=== PATIENT | female | born 1935 | race Caucasian/White ===

== ENCOUNTER → 2016-06-13 | Outpatient (CLI) | payer OTHER ==
[~2016-06-13] MED LIST: ACET-1256 PO; CALCTAB5 PO; HYDR25TA4 PO; LORA-741 PO; MENT4GEL TOP; MULTCHW PO; OMEP40CA PO; POTA-335 PO; TRAM-453 PO; VALS320T PO; VENL150C PO; biotin PO
[2016-06-13 12:11] LABS: BASO % 0.4 %; BASO ABS # 0.03 K/uL (0-0.2); COMPLETE YES; EOS % 1.4 %; HEMATOCRIT 40.9 % (37-47); IG% 0.1 %; LYMPH ABS # 2.36 K/uL (1.2-3.4); MEAN CELL VOLUME 87.2 fL (80-100); MEAN CORPUSCULAR HEMOGLOBIN 28.4 pg (25-34); MEAN CORPUSCULAR HGB CONC 32.5 g/dl (32-36); MEAN PLATELET VOLUME 10.5 fL (7.4-10.4); MONO % 10.6 %; NEUT % 53.5 %; PLATELET COUNT 380 K/uL (130-400); RED BLOOD COUNT 4.69 M/uL (4.2-5.4); WHITE BLOOD COUNT 6.95 K/uL (4.8-10.8)
[2016-06-13 12:32] LABS: ESTIMATED AVERAGE GLUCOSE 126 mg/dl; HA1C FLAG Normal (Normal)
[2016-06-13 13:11] LABS: BLOOD UREA NITROGEN 25 mg/dl (7-18); BUN/CREATININE RATIO 29.4 (10-20); CALCIUM 9.6 mg/dl (8.5-10.1); CARBON DIOXIDE 30 mmol/L (21-32); CHLORIDE 104 mmol/L (98-107); CREATININE 0.85 mg/dl (0.60-1.20); GLUCOSE 90 mg/dl (70-99); SODIUM 141 mmol/L (136-145)
[2016-06-13 13:12] LABS: CHOLESTEROL 143 mg/dl (0-200); CHOLESTEROL/HDL RATIO 4.1; HDL CHOLESTEROL 35 mg/dl; LDL CHOLESTEROL CALCULATED 70 mg/dl; TRIGLYCERIDES 190 mg/dl (0-150); VERY LOW DENSITY LIPOPROT CALC 38 mg/dl
--- NOTE | 2016-06-20 12:08 | CODING QUERY MEDICAL NECESSITY ---
SUPPORTING DIAGNOSIS NEEDED A supporting diagnosis is required for the test/procedure performed on this patient in order for us to be reimbursed by the patient's insurance. Please provide a supporting diagnosis for the following test/procedure listed below next to the test name along with your signature. *If there is no additional diagnosis for this patient that would support the following test/procedure please document that below next to the test/procedure. Test(s)/Procedure(s) that require a supporting diagnosis: DOS 06/13 * Vitamin D DIAGNOSIS: Provider Signature: Date: Thank you Vianca Russell Health Information Management Once completed, please kindly fax back to [phone] For questions please call [phone]
== END | disposition home or self-care (01) ==
LOC: C.LAB 11:31
PROVIDERS: ATTEND Internal Medicine Geriatric Medicine
DX: I10 Essential (primary) hypertension (principal); M19.90 Unspecified osteoarthritis, unspecified site; M85.80 Other specified disorders of bone density and structure, unspecified site; R73.9 Hyperglycemia, unspecified

== ENCOUNTER → 2016-08-10 | Outpatient (CLI) | payer OTHER ==
[~2016-08-10] MED LIST changes: +AZITTAB PO; +CIPR1TAB11 PO; +MULT-1092 PO; +PRM625 VAGRING
--- NOTE | 2016-08-10 13:06 | MAMMOGRAPHY REPORT ---
BILATERAL DIGITAL SCREENING MAMMOGRAM WITH CAD: 08/10/2016 TECHNIQUE: Current study was also evaluated with a Computer Aided Detection (CAD) system. Bilatera l CC and MLO views were obtained. COMPARISON: Comparison is made to exams dated: 08/09/2015 mammogram, 08/05/2014 mammogram, 08/04/2013 mammogram, 08/01/2012 mammogram, 08/01/2011 mammogram, and 07/28/2010 mammogram - [facility] nt. BREAST COMPOSITION: The tissue of both breasts is almost entirely fatty. FINDINGS: No suspicious masses, calcifications, or areas of architectural distortion are noted in e ither breast. There has been no significant interval change compared to prior exams. IMPRESSION: ACR BI-RADS CATEGORY 1: NEGATIVE There is no mammographic evidence of malignancy. A 1 year screening mammogram is recommended. The p atient will receive written notification of the results. Approximately 10% of breast cancers are not detected with mammography. A negative mammographic repor t should not delay biopsy if a clinically suggestive mass is present. Jada Hernandez M.D. ah/:08/10/2016 12:08:42 Neuropsychology Division Chief: Renée IRAHETA(R)(M), [facility] letter sent: Normal 1/2 BI-RADS Code: ACR BI-RADS Category 1: Negative
== END | disposition home or self-care (01) ==
LOC: C.MAMM 10:54
PROVIDERS: ATTEND Internal Medicine Geriatric Medicine
DX: Z12.31 Encounter for screening mammogram for malignant neoplasm of breast (principal)

== ENCOUNTER → 2017-02-12 | Outpatient (CLI) | payer OTHER ==
--- NOTE | 2017-02-12 10:59 | DIAGNOSTIC IMAGING REPORT ---
ABDOMINAL ULTRASOUND COMPLETE HISTORY: Generalized abdominal pain.. COMPARISON: Abdomen and pelvis CT 11/05/2014. FINDINGS: Pancreas: The pancreatic head and tail are obscured by overlying bowel gas. The remaining portions of the pancreas are within normal limits. Liver: No hepatic masses. Gallbladder: The gallbladder is surgically absent. CBD: 1.6 cm. This remains unchanged. Kidneys: No hydronephrosis. Spleen: Normal in size measuring 11.6 cm in length. Aorta: Normal in caliber. IVC: Patent. IMPRESSION: 1. Stable common bile duct dilatation measuring up to 1.6 cm. 2. Prior cholecystectomy. Electronically signed by: Bryce Dougheryt M.D. 02/12/2017 10:57 AM Dictated Date/Time: 02/12/2017 10:55 AM
== END | disposition home or self-care (01) ==
LOC: C.ULTR 09:54
PROVIDERS: ATTEND Internal Medicine Geriatric Medicine
DX: R10.9 Unspecified abdominal pain (principal)

== ENCOUNTER → 2017-03-21 | Outpatient (CLI) | payer OTHER ==
[~2017-03-21] MED LIST changes: -AZITTAB PO; +CEPH500C PO; +CIPR-255 PO; -CIPR1TAB11 PO; +CLIN150C PO; +DOXY100C76 PO; -VENL150C PO; +VENL150C2 PO
--- NOTE | 2017-03-21 14:21 | DIAGNOSTIC IMAGING REPORT ---
R TOE(S) MIN 2 VIEWS CLINICAL HISTORY: R 1ST TOE infection COMPARISON: None. DISCUSSION: Mild degenerative change of the metatarsal phalangeal as well as interphalangeal joint. Mild soft tissue edema. No evidence for lytic or blastic bony abnormality. There is no evidence for bony destructive process. Mild soft tissue edema IMPRESSION: Mild soft tissue edema. Mild degenerative change of the osseous structures. No evidence for osteomyelitis. The above report was generated using voice recognition software. It may contain grammatical, syntax or spelling errors. Electronically signed by: Silvestre Hernadez M.D. 03/21/2017 2:20 PM Dictated Date/Time: 03/21/2017 2:19 PM
== END | disposition home or self-care (01) ==
LOC: C.RAD 13:02
PROVIDERS: ATTEND Emergency Medicine
DX: S91.101A Unspecified open wound of right great toe without damage to nail, initial encounter (principal); X58.XXXA Exposure to other specified factors, initial encounter

== ENCOUNTER → 2017-05-30 | Outpatient (CLI) | payer OTHER ==
[~2017-05-30] MED LIST changes: -CEPH500C PO; -CIPR-255 PO; -CLIN150C PO; +VENL150C PO; -VENL150C2 PO
[2017-05-30 12:12] LABS: BASO % 0.2 %; BASO ABS # 0.02 K/uL (0-0.2); EOS % 1.1 %; EOS ABS # 0.09 K/uL (0-0.5); HEMOGLOBIN 13.4 g/dL (12.0-16.0); IG# 0.01 K/uL (0.00-0.02); MEAN CELL VOLUME 88.2 fL (80-100); MEAN CORPUSCULAR HEMOGLOBIN 28.2 pg (25-34); MEAN CORPUSCULAR HGB CONC 31.9 g/dl (32-36); MEAN PLATELET VOLUME 10.4 fL (7.4-10.4); MONO ABS # 0.98 K/uL (0.11-0.59); NEUT % 53.6 %; NEUT ABS # 4.39 K/uL (1.4-6.5); PLATELET COUNT 400 K/uL (130-400); RED CELL DISTRIBUTION WIDTH CV 13.4 % (11.5-14.5); RED CELL DISTRIBUTION WIDTH SD 43.5 fL (36.4-46.3); WHITE BLOOD COUNT 8.19 K/uL (4.8-10.8)
[2017-05-30 12:30] LABS: HEMOGLOBIN A1C 5.8 % (4.5-5.6)
[2017-05-30 12:39] LABS: GLUCOSE 104 mg/dl (70-99)
[2017-05-30 12:40] LABS: BLOOD UREA NITROGEN 22 mg/dl (7-18); CALCIUM 10.4 mg/dl (8.5-10.1); CARBON DIOXIDE 28 mmol/L (21-32); CREATININE 0.85 mg/dl (0.60-1.20); POTASSIUM 4.5 mmol/L (3.5-5.1); SODIUM 139 mmol/L (136-145)
== END | disposition home or self-care (01) ==
LOC: C.LAB 11:09
PROVIDERS: ATTEND Internal Medicine Geriatric Medicine
DX: I10 Essential (primary) hypertension (principal); M19.90 Unspecified osteoarthritis, unspecified site; R73.9 Hyperglycemia, unspecified; M85.80 Other specified disorders of bone density and structure, unspecified site

== ENCOUNTER → 2017-08-13 | Outpatient (CLI) | payer OTHER ==
--- NOTE | 2017-08-13 15:08 | MAMMOGRAPHY REPORT ---
BILATERAL DIGITAL SCREENING MAMMOGRAM TOMOSYNTHESIS WITH CAD: 08/13/2017 CLINICAL HISTORY: Routine screening. Patient has no complaints. TECHNIQUE: Breast tomosynthesis in addition to standard 2D mammography was performed. Current study was also evaluated with a Computer Aided Detection (CAD) system. COMPARISON: Comparison is made to exams dated: 08/10/2016 mammogram, 08/09/2015 mammogram, 08/05/2014 m ammogram, 08/04/2013 mammogram, 08/01/2012 mammogram, and 08/01/2011 mammogram - [facility]. BREAST COMPOSITION: The tissue of both breasts is almost entirely fatty. FINDINGS: There are scattered stable punctate microcalcifications in the breasts. No suspicious mass, architectural distortion or cluster of microcalcifications is seen. IMPRESSION: ACR BI-RADS CATEGORY 1: NEGATIVE There is no mammographic evidence of malignancy. A 1 year screening mammogram is recommended. The pa tient will receive written notification of the results. Approximately 10% of breast cancers are not detected with mammography. A negative mammographic report should not delay biopsy if a clinically suggestive mass is present. Gilda Keith M.D. ay/:08/13/2017 12:39:43 Skip Operator: Myesha IRAHETA(Stephenie)(Ephraim)(BD), [facility] letter sent: Normal 1/2 BI-RADS Code: ACR BI-RADS Category 1: Negative
== END | disposition home or self-care (01) ==
LOC: C.MAMM 11:00
PROVIDERS: ATTEND Internal Medicine Geriatric Medicine
DX: Z12.31 Encounter for screening mammogram for malignant neoplasm of breast (principal)

== ENCOUNTER 2018-10-20 07:46 | Observation (INO) ==
[2018-10-20] MEDS ORDERED: MECLIZINE HCL 25 MG TAB PO STA (08:06)
[2018-10-20] MEDS ORDERED: ONDANSETRON INJ 2 MG/ML 2 ML VIAL IV STA (08:06)
[2018-10-20] MEDS ORDERED: SODIUM CHLORIDE 0.9% 500 ML IV SCH (08:15)
[2018-10-20 08:24] LABS: Basophils # (auto) 0.02 K/uL (0-0.2); Basophils % (auto) 0.2 %; Eosinophils # (auto) 0.09 K/uL (0-0.5); Eosinophils % (auto) 0.9 %; Hematocrit (blood only) 38.3 % (37-47); Hemoglobin 12.2 g/dL (12.0-16.0); Immature Granulocytes # (auto) 0.02 K/uL (0.00-0.02); Immature Granulocytes % (auto) 0.2 %; Lymphocytes # (auto) 1.61 K/uL (1.2-3.4); Lymphocytes % (auto) 16.7 %; Mean Corpuscular Hgb Conc 31.9 g/dL (32-36); Mean Corpuscular Volume 90.1 fL (80-100); Mean Platelet Volume 10.2 fL (7.4-10.4); Monocytes # (auto) 1.02 K/uL (0.11-0.59); Monocytes % (auto) 10.6 %; Neutrophils # (auto) 6.86 K/uL (1.4-6.5); Neutrophils % (auto) 71.4 %; Platelet Count 439 K/uL (130-400); RDW Coefficient of Variation 13.5 % (11.5-14.5); RDW Standard Deviation 44.8 fL (36.4-46.3); Red Blood Count 4.25 M/uL (4.2-5.4); White Blood Count 9.62 K/uL (4.8-10.8)
[2018-10-20 08:49] LABS: Alanine Aminotransferase 19 U/L (12-78); Albumin Level 3.3 gm/dl (3.4-5.0); Aspartate Aminotransferase 14 U/L (15-37); BUN Creatinine Ratio 24.5 (10-20); Blood Urea Nitrogen 16 mg/dl (7-18); Calcium 9.3 mg/dl (8.5-10.1); Carbon Dioxide 30 mmol/L (21-32); Chloride 106 mmol/L (98-107); Creatinine Clr Calc Pharmacy 69.1 ml/min; Est GFR (Non-African American) 82.8; Glucose 111 mg/dl (70-99); Sodium 141 mmol/L (136-145)
[2018-10-20 08:51] LABS: Albumin Globulin Ratio 0.9 (0.9-2); Alkaline Phosphatase 83 U/L (45-117); Bilirubin,Total 0.4 mg/dl (0.2-1); Creatine Kinase 43 U/L (26-192); Globulin 3.6 gm/dl (2.5-4.0); Total Protein 6.9 gm/dl (6.4-8.2); Troponin I < 0.015 ng/ml (0-0.045)
--- NOTE | 2018-10-20 09:17 | CT Scan Report ---
HEAD CT NONCONTRAST CT DOSE: 537.48 mGy.cm HISTORY: Pt c/o dizziness TECHNIQUE: Multiaxial CT images of the head were performed without the use of intravenous contrast. A utomated exposure control was utilized for this study. A dose lowering technique was utilized adheri ng to the principles of ALARA. Comparison: None. Findings: The paranasal sinuses and mastoid air cells are clear. The calvarium and skull base are int act. There is no mass, hematoma, midline shift, acute infarct. White matter hypodensity is nonspecifi c but suggestive of microvascular ischemic change. The ventricles and sulci demonstrate mild age-rela liana involutional changes. Impression: No acute intracranial abnormality. Electronically signed by: Bryce Dougherty M.D. 10/20/2018 9:15 AM
--- NOTE | 2018-10-20 09:30 | XRay Report ---
XR chest 1V portable HISTORY: weakness COMPARISON: Chest 01/31/2016. FINDINGS: No pneumothorax. No pleural effusions. The heart is normal in size. Chronic elevation/event ration of the right hemidiaphragm. This remains unchanged. The lungs are clear. No evidence for pulmo nary edema. Old, healed right clavicle fracture. IMPRESSION: No significant change compared to the prior study. No acute process. Electronically signed by: Bryce Dougherty M.D. 10/20/2018 9:29 AM
[2018-10-20] MEDS ORDERED: METOCLOPRAMIDE HCL INJ 5 MG/ML 2 ML VIAL IV ONE (10:41)
[2018-10-20] MEDS ORDERED: DIAZEPAM 5 MG/ML INJ 10ML VIAL IV STA (10:41)
[2018-10-20 11:56] LABS: Appearance Urine Clear (Clear); Bilirubin Urine Negative (Negative); Blood Urine Negative (Negative); Color Urine Yellow; Glucose Urine UA Negative (Negative); Ketones Urine Negative (Negative); Leukocyte Esterase Urine Negative (Negative); Nitrite Urine Negative (Negative); Protein Urine Negative (Negative); Specific Gravity Urine 1.023 (1.000-1.030); Urobilinogen Urine Negative (Negative)
--- NOTE | 2018-10-20 12:30 | History & Physical Report ---
Date of Service October 20, 2018 Assessment & Plan (1) Benign paroxysmal positional vertigo: Symptoms initially fit with benign positional vertigo will place transdermal scopolamine patch offered PRN Ativan antiemetics and hydrate her. Reassess her in the morning initial CT is unremarkable low suspicion for cerebrovascular event if her symptoms persist consideration for reimaging can be undertaken denies recent head trauma or infectious but did awaken and rollover when symptoms began (2) HTN (hypertension): We will continue her valsartan 320 blood pressure slightly up this time could be from anxiety, will hold her hydrochlorothiazide at this point time we will offer her as needed medicines for blood pressure become significantly elevated (3) Depression: We will continue Effexor 150 the patient does have some stressors at home currently (4) Infection: Patient is on suppressive therapy doxycycline 100 daily for her toe infection will of wound care evaluated. I did personally see the toe is at least a stage III is been debrided is approximately 3 cm there is some macerated skin on the edge and there is some hardened skin on the opposite edge. Defin itely needs wound care attention. (5) DVT prophylaxis: Heparin for DVT prevention History of Present Illness Primary Care Provider: Hernandez Lin MD Patient awoke this morning rolled over to the bathroom and felt vertiginous. She is significantly dizzy and nauseated. She presented to the ER at which time to try to improve her dizziness given her meclizine 25 "metoclopramide 5 Zofran 4 and diazepam 2.5. None of this helps the patient cannot stand to walk to the bathroom was recommended for admission. Patient has meclizine on her medication list says she has not taken it for years but is not sure why she got it she said Dr. Zita esteban the orthopedist given to her at one point time. 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 she has had debridement of this over the years she is on chronic daily doxycycline for suppressive therapy for this she is wearing an orthopedic shoe The other issue is her 's health is significantly deteriorating and she is his sole caregiver [facility] is being alerted by her case management in the ER to try to arrange for emergency placement patient will remain in the hospital for more than 1 day Allergies Allergy/AdvReac Type Severity Reaction Status Date / Time lisinopril Allergy Mild Hives Verified 10/16/18 11:20 nitrofurantoin Allergy Mild Hives Verified 10/16/18 11:20 Penicillins Allergy Mild Hives Verified 10/16/18 11:20 Sulfa (Sulfonamide Allergy Mild Hives Verified 10/16/18 11:20 Antibiotics) Home Medications Home Medications Medication Instructions Recorded Confirmed Type acetaminophen 500 mg capsule 1,000 mg PO TID PRN cap 11/21/17 10/20/18 History biotin 1 mg tablet 1 mg PO DAILY 11/21/17 10/20/18 History calcium carbonate 600 mg calcium 600 mg PO ONCE tab 11/21/17 10/20/18 History (1,500 mg) tablet conjugated estrogens 0.625 mg/gram 1 appln VAGINAL DIRECTED PRN gm 11/21/17 10/20/18 History vaginal cream hydrochlorothiazide 25 mg tablet 25 mg PO QAM 11/21/17 10/20/18 History lorazepam 0.5 mg tablet 0.5 mg PO HS tab 11/21/17 10/20/18 History potassium chloride ER 10 mEq 20 meq PO DAILY cap 11/21/17 10/20/18 History capsule,extended release venlafaxine ER 150 mg 150 mg PO QAM 11/21/17 10/20/18 History capsule,extended release 24 hr Centrum Silver Women 1 tab PO QAM 12/11/17 10/20/18 History Probiotic 3,000 packet PO QAM 12/11/17 10/20/18 History potassium chloride 20 meq PO QAM 12/11/17 10/20/18 History triamcinolone acetonide 1 applic TOPICAL DAILY 12/11/17 10/20/18 History omeprazole 40 mg capsule,delayed 40 mg PO QAM #90 cap 09/09/18 10/20/18 Rx release tramadol 50 mg tablet 50 mg PO DAILY PRN #30 tab 09/09/18 10/20/18 Rx valsartan 320 mg tablet 320 mg PO QAM #90 tab 09/19/18 10/20/18 Rx doxycycline hyclate 100 mg tablet 100 mg PO DAILY #14 tab 10/16/18 10/20/18 Rx meclizine 25 mg PO TID #30 tab 10/20/18 10/20/18 Rx Past Med/Surg History Medical History HTN (hypertension) (Chronic) Bigeminy DX 1970'S (NO RECENT PROBLEMS) Cancer SKIN CANCER Colitis Depression GERD (gastroesophageal reflux disease) Hearing deficit Infection TOE INFECTION (WOUND CLINIC CURRENTLY) Osteoarthritis Prolapsed bladder Surgical History History of tonsillectomy Hx of cataract surgery LEFT S/P colonoscopy S/P total abdominal hysterectomy RT OOPHERECTOMY Family History Brother Family history of diabetes mellitus Social History Preferred Language: Croatian Communication Ability: Effective Hearing Ability: Normal Finisher Polisher Required: No Beliefs That Will Affect Care: None Current Living Situation: Spouse Current Living Situation Comment: takes care of Other Information That Helps Us Care for You: No Feels Safe at Home: Yes Safety Concerns: Feels Safe At This Time Smoking Status: Never smoker Second Hand Exposure: No Hx Alcohol Use: No Hx Substance Use: No Review of Systems Review of Systems: ROS: well nourished well developed. No double vision blurry vision No problems with speech or swallowing No palpitations, chest pain or pressure No Wheezing or breathing issues No abdominal pain nausea vomiting diarrhea changes in appetite or weight No burning urine urine frequency or changes in color No focal joint pain or muscle pain No skin rashes or oral lesions No unusual bruising or bleeding No focused back pain or numbness or loss of strength, patient has reproducible cyst symptoms with head movement and eye movement worse to the right No changes in memory or confusion Physical Exam Physical Exam: The patient appeared well nourished and normally developed. Vital signs as documented. Head exam is unremarkable. normocephalic, atraumatic Patient has reproducible symptoms when she looks towards her right turns her head to the right. She has no nystagmus or diplopia ophthalmologic exam is unremarkable Ear examination is unremarkable Neck is without jugular venous distension, no bruits, thyromegaly, or lymphademopathy Lungs are clear to auscultation and percussion. Cardiac exam reveals Rhythm is regular. First and second heart sounds normal. Abdominal exam reveals normal bowel sounds, no masses, no organomegaly Extremities are nonedematous and both pedal pulses are present Neurologic exam is A&Ox3, no focal deficits, strength is equal bilateral no focal evidence of issues no palmar drift no a facial asymmetry Psychologically seems neither anxious or depressed Skin is warm Dry without bruises or lesions Results & Data Vital Signs (Past 12 Hours) Vital Signs Temp Pulse Pulse Resp BP BP Pulse Ox 10/20/18 12:00 88 21 148/85 H 97 10/20/18 11:30 89 22 150/89 H 10/20/18 11:00 89 24 157/84 H 10/20/18 10:27 87 21 144/87 H 95 10/20/18 09:30 79 21 133/75 97 10/20/18 08:31 74 16 163/82 H 94 10/20/18 08:06 96 10/20/18 08:00 80 18 141/78 H 96 10/20/18 07:52 36.5 C 81 17 167/76 H 98 PG Care Time/CCT Total # of Minutes Spent Total Time Spent with Patient: Total time spent is greater than 50% in coordination of care (as documented) at patient's floor/unit and/or counseling patient: (1) Benign paroxysmal positional vertigo Laterality: unspecified laterality Qualified Code(s): H81.10 - Benign paroxysmal vertigo, unspecified ear
--- NOTE | 2018-10-20 12:37 | Emergency Department Note ---
Entered by Keyla Cloud acting as a scribe for History of Present Illness General Chief complaint: Dizziness Stated complaint: Dizziness, MCCORD, Nausea Time Seen by Provider: 10/20/18 07:51 Source: patient Mode of arrival: EMS History of Present Illness Onset (ago): day(s) 1 Location: head Pain Consistency: + other (persistent) Quality: + other (dizziness) Exacerbated By: + movement (movement, turning head) Associated symptoms: + denies other symptoms (abdominal pain) and + other (nausea, mild frontal headache) The patient is a 82 year old female with a history of hypertension that is presenting to the Emergency Room with complaints of persistent dizziness that started yesterday. The patient reports that she feels dizzy with movement and with turning her head. She notes that the feeling resolves with sitting still. She states that it feels like the room is spinning and buzzing. She reports that she has to hold on to furniture to move around secondary to the dizziness. She states that her symptoms improved yesterday but returned this morning upon waking. She notes some associated nausea and a mild frontal headache. She states that the headache is similar to her regular headaches. She notes that her nausea as slightly improved with Zofran that she received in the ambulance. The patient reports that she has been sleeping sitting in a recliner since March secondary to her husbands illness. She states that she has had difficulty lying flat since this time. She denies using any blood thinners daily. EMS notes that the patient has cellulitis of the right toe and is currently taking Amoxicillin for treatment. Home Medications Home Medications Medication Instructions Recorded Confirmed Type acetaminophen 500 mg capsule 1,000 mg PO TID PRN cap 11/21/17 10/20/18 History biotin 1 mg tablet 1 mg PO DAILY 11/21/17 10/20/18 History calcium carbonate 600 mg calcium 600 mg PO ONCE tab 11/21/17 10/20/18 History (1,500 mg) tablet conjugated estrogens 0.625 mg/gram 1 appln VAGINAL DIRECTED PRN gm 11/21/17 10/20/18 History vaginal cream hydrochlorothiazide 25 mg tablet 25 mg PO QAM 11/21/17 10/20/18 History lorazepam 0.5 mg tablet 0.5 mg PO HS tab 11/21/17 10/20/18 History potassium chloride ER 10 mEq 20 meq PO DAILY cap 11/21/17 10/20/18 History capsule,extended release venlafaxine ER 150 mg 150 mg PO QAM 11/21/17 10/20/18 History capsule,extended release 24 hr Centrum Silver Women 1 tab PO QAM 12/11/17 10/20/18 History Probiotic 3,000 packet PO QAM 12/11/17 10/20/18 History potassium chloride 20 meq PO QAM 12/11/17 10/20/18 History triamcinolone acetonide 1 applic TOPICAL DAILY 12/11/17 10/20/18 History omeprazole 40 mg capsule,delayed 40 mg PO QAM #90 cap 09/09/18 10/20/18 Rx release tramadol 50 mg tablet 50 mg PO DAILY PRN #30 tab 09/09/18 10/20/18 Rx valsartan 320 mg tablet 320 mg PO QAM #90 tab 09/19/18 10/20/18 Rx doxycycline hyclate 100 mg tablet 100 mg PO DAILY #14 tab 10/16/18 10/20/18 Rx meclizine 25 mg PO TID #30 tab 10/20/18 10/20/18 Rx Allergies Allergy/AdvReac Type Severity Reaction Status Date / Time lisinopril Allergy Mild Hives Verified 10/16/18 11:20 nitrofurantoin Allergy Mild Hives Verified 10/16/18 11:20 Penicillins Allergy Mild Hives Verified 10/16/18 11:20 Sulfa (Sulfonamide Allergy Mild Hives Verified 10/16/18 11:20 Antibiotics) Past Med/Surg History Family History Brother Family history of diabetes mellitus Social History Preferred Language: Greek Communication Ability: Effective Hearing Ability: Normal [place] Straightener Stamper Required: No Beliefs That Will Affect Care: None Current Living Situation: Spouse Current Living Situation Comment: takes care of Other Information That Helps Us Care for You: No Feels Safe at Home: Yes Safety Concerns: Feels Safe At This Time Smoking Status: Never smoker Second Hand Exposure: No Hx Alcohol Use: No Hx Substance Use: No Review of Systems See HPI for pertinent positives & negatives. and A total of 10 systems reviewed and were otherwise negative Physical Exam Vital Signs Vital Signs - 24 hr 10/20/18 07:52 10/20/18 08:00 10/20/18 08:06 Temperature 36.5 C Temperature Source Oral Sepsis Recent Fever Within 48 Hours No Sepsis New/Unexplained Change in Mental Status No Sepsis Action Taken by Nursing No Action Required Pulse Rate 81 Pulse Rate [Apical] 80 Pulse Rate from SpO2 Sensor Pulse Rhythm [Apical] Irregular Respiratory Rate 17 18 Respiratory Effort / Characteristics Non-Labored Non-Labored Respiratory Depth Normal Normal Respiratory Pattern Regular Blood Pressure 167/76 H Blood Pressure [Right Arm] 141/78 H Blood Pressure Mean 106 Blood Pressure Mean [Right Arm] 99 Blood Pressure Position Sitting Blood Pressure Position [Right Arm] Lying Pulse Oximetry 98 96 96 Oxygen Delivery Method Room Air Room Air Room Air Oxygen Flow Rate 0 10/20/18 08:31 10/20/18 09:30 10/20/18 10:27 Temperature Temperature Source Sepsis Recent Fever Within 48 Hours Sepsis New/Unexplained Change in Mental Status Sepsis Action Taken by Nursing Pulse Rate Pulse Rate [Apical] 74 79 87 Pulse Rate from SpO2 Sensor Pulse Rhythm [Apical] Respiratory Rate 16 21 21 Respiratory Effort / Characteristics Non-Labored Non-Labored Non-Labored Respiratory Depth Normal Normal Normal Respiratory Pattern Regular Regular Regular Blood Pressure Blood Pressure [Right Arm] 163/82 H 133/75 144/87 H Blood Pressure Mean Blood Pressure Mean [Right Arm] 109 94 106 Blood Pressure Position Blood Pressure Position [Right Arm] Sitting Sitting Sitting Pulse Oximetry 94 97 95 Oxygen Delivery Method Room Air Room Air Room Air Oxygen Flow Rate 0 10/20/18 11:00 10/20/18 11:30 10/20/18 11:52 Temperature Temperature Source Sepsis Recent Fever Within 48 Hours Sepsis New/Unexplained Change in Mental Status Sepsis Action Taken by Nursing Pulse Rate 89 89 Pulse Rate [Apical] Pulse Rate from SpO2 Sensor Pulse Rhythm [Apical] Respiratory Rate 24 22 Respiratory Effort / Characteristics Respiratory Depth Respiratory Pattern Regular Blood Pressure 157/84 H 150/89 H Blood Pressure [Right Arm] Blood Pressure Mean 108 109 Blood Pressure Mean [Right Arm] Blood Pressure Position Blood Pressure Position [Right Arm] Pulse Oximetry Oxygen Delivery Method Room Air Oxygen Flow Rate 10/20/18 12:00 Temperature Temperature Source Sepsis Recent Fever Within 48 Hours Sepsis New/Unexplained Change in Mental Status Sepsis Action Taken by Nursing Pulse Rate 88 Pulse Rate [Apical] Pulse Rate from SpO2 Sensor 87 Pulse Rhythm [Apical] Respiratory Rate 21 Respiratory Effort / Characteristics Respiratory Depth Respiratory Pattern Blood Pressure 148/85 H Blood Pressure [Right Arm] Blood Pressure Mean 106 Blood Pressure Mean [Right Arm] Blood Pressure Position Blood Pressure Position [Right Arm] Pulse Oximetry 97 Oxygen Delivery Method Room Air Oxygen Flow Rate GENERAL: Awake, alert, well-appearing, in no acute distress HENT: Normocephalic, atraumatic. Oropharynx unremarkable. EYES: Normal conjunctiva. Sclera non-icteric. NECK: Supple. No nuchal rigidity. FROM. No JVD. RESPIRATORY: Clear to auscultation. CARDIAC: Regular rate, normal rhythm. Extremities warm and well perfused. Pulses equal. ABDOMEN: Soft, non-distended. No tenderness to palpation. No rebound or guarding. No masses. RECTAL: Deferred. MUSCULOSKELETAL: Chest examination reveals no tenderness. The back is symmetr ical on inspection without obvious abnormality. There is no CVA tenderness to palpation. No joint edema. LOWER EXTREMITIES: Calves are equal size bilaterally and non-tender. No edema. No discoloration. NEURO: Normal sensorium. No sensory or motor deficits noted. SKIN: No rash or jaundice noted. Course 0753:The patient was evaluated in room B07. A complete history and physical examination was performed. 0945: I updated the patient on her current lab and imaging results. We discussed talking to Case management about caring for her . She is amenable to the plan. 0955: Upon reevaluation, the patient appeared to have improvement of her sy mptoms. I discussed findings with the patient. She verbalized agreement of the treatment plan. She was discharged home. 1021: I ordered an ambulation trial attempt for the patient at this time to dennis luate her for discharge. 1030: Upon sitting up, the patient states that the room is spinning and that she had to lie back down. The patient vomited at this time. 1041: I reevaluated the patient at this time. She is amenable to the plan. She asked to speak to case management about her . 1133: I discussed the patients case [place] [facility] [place] the patient for further management and care. 1140: Upon reevaluation, the patient is resting comfortably. I discussed lab oratory and radiographic results with the patient. She verbalized agreement of the treatment plan. The patient will be evaluated for further management and care. Administered Medications Discontinued Medications Diazepam (Valium) 2.5 mg IV NOW STA Stop: 10/20/18 10:42 Last Admin: 10/20/18 11:13 Dose: 2.5 mg Documented by: [id number] Sodium Chloride (Nss) 500 mls @ 999 mls/hr IV .Q31M KETTY Stop: 10/20/18 08:45 Last Infusion: 10/20/18 08:46 Dose: 0 mls/hr Documented by: [id number] Admin: 10/20/18 08:15 Dose: 999 mls/hr Documented by: [id number] Meclizine HCl (Antivert) 25 mg PO NOW STA Stop: 10/20/18 08:07 Last Admin: 10/20/18 08:15 Dose: 25 mg Documented by: [id number] Metoclopramide HCl (Reglan) 5 mg IV ONE ONE Stop: 10/20/18 10:42 Last Admin: 10/20/18 11:11 Dose: 5 mg Documented by: [id number] Ondansetron HCl (Zofran) 4 mg IV NOW STA Stop: 10/20/18 08:07 Last Admin: 10/20/18 08:15 Dose: 4 mg Documented by: [id number] Medical Decision Making Differential Diagnosis Differential diagnosis: Etiologies such as benign positional vertigo, dehydration, hypovolemia, anemia, tumor, infection, hypoglycemia, electrolyte abnormalities, cardiac sources, intracerebral event, toxicologic, neurologic, as well as others were entertained. Medical Records Attestation: I reviewed the patient's medical records. Home Medications Current Medication List: was personally reviewed by me Laboratory Data Attestation: I reviewed the patient's lab results. Result diagrams: 10/20/18 08:07 10/20/18 08:07 Lab Results 10/20/18 10/20/18 10/20/18 Range/Units 08:07 08:07 11:43 WBC 9.62 (4.8-10.8) K/uL RBC 4.25 (4.2-5.4) M/uL Hgb 12.2 (12.0-16.0) g/dL Hct 38.3 (37-47) % MCV 90.1 (80-100) fL MCH 28.7 (25-34) pg MCHC 31.9 L (32-36) g/dL RDW Std Deviation 44.8 (36.4-46.3) fL RDW Coeff of Nimesh 13.5 (11.5-14.5) % Plt Count 439 H (130-400) K/uL MPV 10.2 (7.4-10.4) fL Immature Gran % (Auto) 0.2 % Neut % (Auto) 71.4 % Lymph % (Auto) 16.7 % [place] % (Auto) 10.6 % Eos % (Auto) 0.9 % Baso % (Auto) 0.2 % Immature Gran # (Auto) 0.02 (0.00-0.02) K/uL Neut # (Auto) 6.86 H (1.4-6.5) K/uL Lymph # (Auto) 1.61 (1.2-3.4) K/uL [place] # (Auto) 1.02 H (0.11-0.59) K/uL Eos # (Auto) 0.09 (0-0.5) K/uL Baso # (Auto) 0.02 (0-0.2) K/uL Sodium 141 (136-145) mmol/L Potassium 4.0 (3.5-5.1) mmol/L Chloride 106 (98-107) mmol/L Carbon Dioxide 30 (21-32) mmol/L Anion Gap 5.0 (3-11) BUN 16 (7-18) mg/dl Creatinine 0.66 (0.6-1.2) mg/dl Est Cr Clr Drug Dosing 69.1 ml/min Est GFR ( Amer) 96.0 Est GFR (Non-Af Amer) 82.8 BUN/Creatinine Ratio 24.5 H (10-20) Glucose 111 H (70-99) mg/dl Calcium 9.3 (8.5-10.1) mg/dl Total Bilirubin 0.4 (0.2-1) mg/dl AST 14 L (15-37) U/L ALT 19 (12-78) U/L Alkaline Phosphatase 83 (45-117) U/L Total Creatine Kinase 43 (26-192) U/L Troponin I < 0.015 (0-0.045) ng/ml Total Protein 6.9 (6.4-8.2) gm/dl Albumin 3.3 L (3.4-5.0) gm/dl Globulin 3.6 (2.5-4.0) gm/dl Albumin/Globulin Ratio 0.9 (0.9-2) TSH 1.250 (0.300-4.500) uIu/ml Urine Color Yellow Urine Appearance Clear (Clear) Urine pH 5.0 (4.5-7.5) Ur Specific [place] 1.023 (1.000-1.030) Urine Protein Negative (Negative) Urine Glucose (UA) Negative (Negative) Urine Ketones Negative (Negative) Urine Blood Negative (Negative) Urine Nitrite Negative (Negative) Urine Bilirubin Negative (Negative) Urine Urobilinogen Negative (Negative) Ur Leukocyte Esterase Negative (Negative) Imaging Data Radiologist's Impression: Radiology results as stated below per my review and the radiologist's interpretation: HEAD CT NONCONTRAST CT DOSE: 537.48 mGy.cm HISTORY: Pt c/o dizziness TECHNIQUE: Multiaxial CT images of the head were performed without the use of intravenous contrast. Automated exposure control was utilized for this study. A dose lowering technique was utilized adhering to the principles of ALARA. Comparison: None. Findings: The paranasal sinuses and mastoid air cells are clear. The calvarium and skull base are intact. There is no mass, hematoma, midline shift, acute infarct. White matter hypodensity is nonspecific but suggestive of microvascular ischemic change. The ventricles and sulci demonstrate mild age-related involutional changes. Impression: No acute intracranial abnormality. Electronically signed by: Bryce Duogherty M.D. 10/20/2018 9:15 AM XR chest 1V portable HISTORY: weakness COMPARISON: Chest 01/31/2016. FINDINGS: No pneumothorax. No pleural effusions. The heart is normal in size. Chronic elevation/eventration of the right hemidiaphragm. This remains uncha nged. The lungs are clear. No evidence for pulmonary edema. Old, healed right clavicle fracture. IMPRESSION: No significant change compared to the prior study. No acute process. Electronically signed by: Bryce Dougherty M.D. 10/20/2018 9:29 AM ECG Data Attestation: I personally reviewed and interpreted this ECG as follows: Indication: other (dizziness with history of hypertension) Rhythm: sinus rhythm Findings: + other (premature atrial complex, old anterior infarct) Comparison ECG Date: from (07/10/2013) Change: no significant change Blood Pressure Blood Pressure Findings: Elevated blood pressure Blood Pressure Disposition: Referred to patients primary care provider SHANE Nance This is an 82-year-old female who presents the emergency department complaining of dizziness. The patient's dizziness on physical exam appears to be consistent with vertigo. She was given meclizine as well as Zofran and normal saline bolus here in the emergency department. She was sent for CAT scan of the head which did not show any acute process. Patient also has an unchanged EKG as well as normal laboratory work including white blood cell count renal profile and liver profile. She was ambulated by nursing staff however became extremely dizzy and vomited. At this point she was given Reglan as well as Valium for her symptoms. Because of the patient's I did contact case management to ensure that the patient has proper care of her . As she is unable to ambulate she was discussed with the hospitalist service who agreed to admit the patient. Impression & Plan Benign paroxysmal positional vertigo Discharge Plan Visit Data Chief Complaint: Dizziness Stated Complaint: Dizziness, MCCORD, Nausea Other Complaint: Headache ED Provider: Justin Salinas Discharge Problem: Benign paroxysmal positional vertigo Patient Disposition: Being Evaluated by Hospitalist Condition: Good Discharge Instructions Mikimes/Other Patient Handouts: Dizziness Vertigo Inner Ear, Dizziness Vertigo Manage Meds, Dizziness Vertigo Balance Safety, ED BPV Vertigo Activity Restrictions/Additional Instructions: Follow up with DR Mcwilliams's office You have been examined and treated today on an emergency basis only. This is not a substitute for, or an effort to provide, complete comprehensive medical care. It is impossible to recognize and treat all injuries or illnesses in a single emergency department visit. It is therefore important that you follow up closely with Dr Mcwilliams. Call as soon as possible for an appointment. Thank you for your time and consideration. I look forward to speaking with you again soon. Please don't hesitate to call us if you have any questions. Forms Stand Alone Forms: My [facility], Important Visit Information Prescriptions Prescriptions: New meclizine 25 mg tablet 25 mg PO TID Qty: 30 RF: 0 No Action acetaminophen 500 mg capsule 1,000 mg PO TID PRN (Reason: Pain) RF: 0 calcium carbonate 600 mg calcium (1,500 mg) tablet 600 mg PO ONCE RF: 0 conjugated estrogens [Premarin] 0.625 mg/gram cream 1 appln Vaginal DIRECTED PRN (Reason: DIRECTED) RF: 0 hydrochlorothiazide 25 mg tablet 25 mg PO QAM RF: 0 lorazepam [Ativan] 0.5 mg tablet 0.5 mg PO HS RF: 0 potassium chloride 10 mEq capsule, extended release 20 meq PO DAILY RF: 0 venlafaxine [Effexor XR] 150 mg capsule,extended release 24hr 150 mg PO QAM RF: 0 biotin 1 mg tablet 1 mg PO DAILY RF: 0 omeprazole 40 mg capsule,delayed release(DR/EC) 40 mg PO QAM Qty: 90 RF: 3 tramadol 50 mg tablet 50 mg PO DAILY PRN (Reason: Pain) Qty: 30 RF: 1 valsartan [Diovan] 320 mg tablet 320 mg PO QAM Qty: 90 RF: 3 doxycycline hyclate 100 mg tablet 100 mg PO DAILY Qty: 14 RF: 0 potassium chloride 20 mEq Tablet Extended Release 20 meq PO QAM RF: 0 triamcinolone acetonide 0.1 % Cream 1 applic TOPICAL DAILY RF: 0 Centrum Silver Women 8 mg iron-400 mcg-300 mcg Tablet 1 tab PO QAM RF: 0 Probiotic 3 billion cell Capsule 3,000 packet PO QAM RF: 0 Referrals Referrals: Hernandez Lin MD [Primary Care Provider] - Tona Mcwilliams MD [Surgeon] - Discharge Problem: Benign paroxysmal positional vertigo Qualifiers: Laterality: unspecified laterality Qualified Code(s): H81.10 - Benign paroxysmal vertigo, unspecified ear The scribe's documentation has been prepared under my direction and personally reviewed by me in its entirety. I confirm that the note above accurately reflects all work, treatment, procedures, and medical decision making performed by me.
[2018-10-20] MEDS ORDERED: SODIUM CHLORIDE 0.9% 1000ML 1,000 ML IV SCH (14:00)
[2018-10-20] MEDS ORDERED: ONDANSETRON INJ 2 MG/ML 2 ML VIAL IV PRN (14:00)
[2018-10-20] MEDS ORDERED: NON-FORMULARY MEDICATION (Acetaminophen 1,000 MG) PO PRN (14:00)
[2018-10-20] MEDS ORDERED: LORazepam 0.5 MG/1 ML VIAL IV PRN (14:00)
[2018-10-20] MEDS ORDERED: PREMARIN VAG CRM 14 APPLN/30 GM TUBE PV PRN (14:00)
[2018-10-20] MEDS ORDERED: TRAMADOL HCL 50 MG TABLET PO PRN (14:00)
[2018-10-20] MEDS ORDERED: SCOPOLAMINE 1.5 MG TDSY TD SCH (16:00)
[2018-10-20 16:04] LABS: INR 1.1 (0.9-1.1); Prothrombin Time 10.8 Seconds (9.0-12.0)
[2018-10-20] MEDS: ACETAMINOPHEN 325 MG TAB PO PRN (17:43)
[2018-10-20] MEDS: LORazepam 0.5 MG TAB PO SCH (21:03)
[2018-10-20] MEDS: LACTOBACILLUS ACIDOPHILUS (FLORANEX) TAB PO SCH (21:03)
[2018-10-20] MEDS: HEPARIN SOD 5,000 UNIT/0.5 ML VIAL SQ SCH (21:04)
[2018-10-21] MEDS: CHECK SCOPOLAMINE PATCH PLACEMENT SCH ×3 (00:13→16:01)
[2018-10-21] MEDS: LACTOBACILLUS ACIDOPHILUS (FLORANEX) TAB PO SCH ×3 (08:03→20:44)
[2018-10-21] MEDS: ACETAMINOPHEN 325 MG TAB PO PRN (08:03)
[2018-10-21] MEDS: PANTOprazole 40 MG TAB PO SCH (08:04)
[2018-10-21] MEDS: VALSARTAN 80 MG TAB PO SCH (08:06)
[2018-10-21] MEDS: POTASSIUM CHLORIDE 10 MEQ TABCR PO SCH (08:06)
[2018-10-21] MEDS: VENLAFAXINE HCL XR 150 MG CAPXR PO SCH (08:07)
[2018-10-21] MEDS: DOXYCYCLINE HYCLATE 100 MG CAP PO SCH (08:08)
[2018-10-21] MEDS: HEPARIN SOD 5,000 UNIT/0.5 ML VIAL SQ SCH ×2 (08:09→20:43)
[2018-10-21 08:11] LABS: BUN Creatinine Ratio 16.7 (10-20); Creatinine Clr Calc Pharmacy 71.4 ml/min; Est GFR (Non-African American) 83.7; Potassium 3.9 mmol/L (3.5-5.1)
[2018-10-21] MEDS ORDERED: KETOROLAC TROMETHAMINE 15 MG/ML VIAL IV ONE (12:24)
--- NOTE | 2018-10-21 14:53 | Hospitalist Progress Note ---
Date of Service October 21, 2018 Assessment & Plan (1) Benign paroxysmal positional vertigo: Symptoms initially fit with benign positional vertigo improved after transdermal scopolamine patch offered PRN Ativan antiemetics and continue to hydrate her. initial CT is unremarkable low suspicion for cerebrovascular event With regard to her headache and neck pain and plain film of her neck will be ordered Toradol did improve her headache pain will continue to offer this as needed (2) HTN (hypertension): continue her valsartan 320 continue to hold her hydrochlorothiazide (3) Depression: Effexor 150 the patient does have some stressors at home currently (4) Infection: Patient is on suppressive therapy doxycycline 100 daily for her toe infection will of wound care evaluated. Culture of her toe with plain film of her toe to look for osteolytic changes (5) DVT prophylaxis: Heparin for DVT prevention Subjective She states her dizziness is improved she still has some left neck pain and a mild headache this also improved with some Toradol administration. She does not feel quite ready to go home yet. Her toe is not been an issue but wound care is requested ordering a culture and a plain film of her foot to look for ostium myelitis Review of Systems Review of Systems: ROS: well nourished well developed. No double vision blurry vision reproducible symptoms when she looks towards the right of dizziness No problems with speech or swallowing No palpitations, chest pain or pressure No Wheezing or breathing issues No abdominal pain nausea vomiting diarrhea changes in appetite or weight No burning urine urine frequency or changes in color Is focal left-sided neck pain in the muscular region above her trapezius No skin rashes or oral lesions No unusual bruising or bleeding No focused back pain or numbness or loss of strength No changes in memory or confusion Physical Exam Physical Exam: The patient appeared well nourished and normally developed. But in mild discomfort Vital signs as documented. Head exam is unremarkable. normocephalic, atraumatic Neck is without jugular venous distension, thyromegaly, or lymphademopathy is reproducibly tender in the muscular body towards the left base of her neck and also in the central region x-rays pending Lungs are clear to auscultation and percussion. Cardiac exam reveals Rhythm is regular. First and second heart sounds normal. Abdominal exam reveals normal bowel sounds, no masses, no organomegaly Extremities are nonedematous and both pedal pulses are present Neurologic exam is A&Ox3, no focal deficits, strength is equal bilateral no palmar drift no facial asymmetry her dizziness seems more consistent with vertigo Psychologically seems anxious about going home Skin is warm Dry without bruises or lesions Results & Data Vital Signs (Past 12 Hours) Vital Signs Temp Pulse Pulse Resp BP BP Pulse Ox 10/21/18 11:41 88 10/21/18 07:44 36.8 C 88 18 167/79 H 95 10/21/18 04:41 36.5 C 75 20 155/69 H 94 PG Care Time/CCT Total # of Minutes Spent Total Time Spent with Patient: Total time spent is greater than 50% in coordination of care (as documented) at patient's floor/unit and/or counseling patient: (1) Benign paroxysmal positional vertigo Laterality: unspecified laterality Qualified Code(s): H81.10 - Benign paroxysmal vertigo, unspecified ear
--- NOTE | 2018-10-21 15:55 | XRay Report ---
XR cervical spine 2 or 3V HISTORY: Pain. Trauma. pain to base of neck left sided, recent fall COMPARISON: None. FINDINGS: The cervical spine is visualized from C1 through the superior endplate of T1. There is no f racture. No subluxation. Moderate degenerative disc change. Osteopenia. Calcification of the carotid vasculature bilaterally. Prevertebral soft tissues and the atlantodens interval are intact. IMPRESSION: 1. No acute bony abnormality. 2. Moderate degenerative disc changes throughout. 3. Calcification of the carotid vasculature. The above report was generated using voice recognition software. It may contain grammatical, syntax or spelling errors. Electronically signed by: Silvestre Hernadez M.D. 10/21/2018 3:54 PM
--- NOTE | 2018-10-21 15:56 | XRay Report ---
XR toe RT min 2V CLINICAL HISTORY: eval for osteo changes infection COMPARISON: None. DISCUSSION: The bones and joint spaces appear intact. There is no evidence of fracture, dislocation o r bony disease. Generalized soft tissue edema. No evidence for bony destructive process. IMPRESSION: Soft tissue edema. No acute bony abnormality. The above report was generated using voice recognition software. It may contain grammatical, syntax or spelling errors. Electronically signed by: Silvestre Hernadez M.D. 10/21/2018 3:55 PM
[2018-10-21] MEDS: LORazepam 0.5 MG TAB PO SCH (20:46)
[2018-10-22] MEDS: CHECK SCOPOLAMINE PATCH PLACEMENT SCH ×2 (00:58→08:02)
[2018-10-22 06:57] LABS: Hematocrit (blood only) 34.6 % (37-47); Hemoglobin 10.9 g/dL (12.0-16.0); Mean Corpuscular Hgb Conc 31.5 g/dL (32-36); Mean Corpuscular Volume 88.3 fL (80-100); Mean Platelet Volume 10.3 fL (7.4-10.4); Platelet Count 381 K/uL (130-400); RDW Coefficient of Variation 13.5 % (11.5-14.5); RDW Standard Deviation 42.9 fL (36.4-46.3); Red Blood Count 3.92 M/uL (4.2-5.4); White Blood Count 6.43 K/uL (4.8-10.8)
[2018-10-22 07:57] LABS: BUN Creatinine Ratio 32.8 (10-20); Calcium 9.1 mg/dl (8.5-10.1); Creatinine Clr Calc Pharmacy 70.4 ml/min; Est GFR (African American) 96.5; Est GFR (Non-African American) 83.3; Potassium 3.9 mmol/L (3.5-5.1)
[2018-10-22] MEDS: PANTOprazole 40 MG TAB PO SCH (08:02)
[2018-10-22] MEDS: POTASSIUM CHLORIDE 10 MEQ TABCR PO SCH (08:02)
[2018-10-22] MEDS: VENLAFAXINE HCL XR 150 MG CAPXR PO SCH (08:02)
[2018-10-22] MEDS: DOXYCYCLINE HYCLATE 100 MG CAP PO SCH (08:03)
[2018-10-22] MEDS: LACTOBACILLUS ACIDOPHILUS (FLORANEX) TAB PO SCH ×2 (08:03→14:45)
[2018-10-22] MEDS: VALSARTAN 80 MG TAB PO SCH (08:03)
[2018-10-22] MEDS: HEPARIN SOD 5,000 UNIT/0.5 ML VIAL SQ SCH (08:05)
--- NOTE | 2018-10-23 21:18 | Discharge Summary ---
Date of Service October 22, 2018 Admission HPI Per Admitting Provider Patient awoke this morning rolled over to the bathroom and felt vertiginous. She is significantly dizzy and nauseated. She presented to the ER at which time to try to improve her dizziness given her meclizine 25 "metoclopramide 5 Zofran 4 and diazepam 2.5. None of this helps the patient cannot stand to walk to the bathroom was recommended for admission. Patient has meclizine on her medication list says she has not taken it for years but is not sure why she got it she said Dr. Ahumada we the orthopedist given to her at one point time. 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 Vital signs as documented. Head exam is unremarkable. normocephalic, atraumatic Neck is without jugular venous distension, thyromegaly, or lymphademopathy Lungs are clear to auscultation and percussion. Cardiac exam reveals Rhythm is regular. First and second heart sounds normal. Abdominal exam reveals normal bowel sounds, no masses, no organomegaly Extremities are nonedematous and both pedal pulses are present Neurologic exam is A&Ox3, no focal deficits Psychologically seems anxious about going home Skin is warm Dry without bruises or lesions Discharge Data Allergies Allergy/AdvReac Type Severity Reaction Status Date / Time lisinopril Allergy Mild Hives Verified 10/23/18 14:46 nitrofurantoin Allergy Mild Hives Verified 10/23/18 14:46 Penicillins Allergy Mild Hives Verified 10/23/18 14:46 Sulfa (Sulfonamide Allergy Mild Hives Verified 10/23/18 14:46 Antibiotics) Consultations 10/20/18 14:00 Consult Case Management - Discharge Planning Routine Ordered Studies 10/20/18 08:06 CT head/brain wo con Stat Hospital Course (1) Benign paroxysmal positional vertigo: On admission: Symptoms initially fit with benign positional vertigo improved after transdermal scopolamine patch offered PRN Ativan antiemetics and continue to hydrate her. initial CT is unremarkable low suspicion for cerebrovascular event With regard to her headache and neck pain and plain film of her neck will be ordered Toradol did improve her headache pain will continue to offer this as needed On discharge: Her vertigo had improved, discussed with patient the outpatient medicine she may use: like the scopolamine patch. I anticipate as she improves, her need to use the patch will decrease. (2) HTN (hypertension): continue her valsartan 320 continue to hold her hydrochlorothiazide (3) Depression: Effexor 150 the patient does have some stressors at home currently (4) Infection: Patient is on suppressive therapy doxycycline 100 daily for her toe infection will of wound care evaluated. Culture of her toe with plain film of her toe to look for osteolytic changes On discharge: images were negative. Will f/u with wound care on 10/23 (5) DVT prophylaxis: Heparin for DVT prevention Total Time Total Time Spent Total Time Spent (In Minutes): 32 Total Time Includes: Examination of the Patient, Discharge Planning and Medication Reconciliation Discharge Plan Discharge Items Patient Disposition: Home - Self-Care Reason For Visit: VERTIGO Discharge Diagnosis: vertigo Condition: Good Discharge Goals: Decrease discomfort Activity: Resume your previous activity Non-emergency contact: Primary Care Provider Call non-emergency contact if: you have any medication questions Follow-up/Referrals: Hernandez Lin MD [Primary Care Provider] - 10/25/18 10:00 am (Please, follow up at Dr. Lin's office with his assistant purchasing manager, Kayla Irene PA-C, on SundayOctober 25 at 10:00 am. *If you need to change this appointment, call the office at [phone].) Diet: Regular Addtl Provider Instructions: Toe right first toe, clean with saline, cover with Aquacel Ag, 2x2 and kerlix. Change every day. Patient must wear surgical shoe everytime uriel hits the floor [facility] October 23 at 2:15 pm For dizziness, you can take meclizine 25 mg three times a day as needed or the scopolamine patch. Limit use of the meclizine, if your patch is on. Culture for superficial wound was positive for 2 bacyteria: staph and gram neg. bacilli. May be contamination, will defer to wound care clinic which you will see tomorrow. Continue doxycycline for now. Prescriptions: New meclizine 25 mg tablet 25 mg PO TID Qty: 30 RF: 0 scopolamine base [Transderm-Scop] 1 mg over 3 days Patch 3 Day 1.5 mg transdermal Q72H PRN (Reason: dizziness) Qty: 5 RF: 0 Continued acetaminophen 500 mg capsule 1,000 mg PO TID PRN (Reason: Pain) RF: 0 calcium carbonate 600 mg calcium (1,500 mg) tablet 600 mg PO ONCE RF: 0 conjugated estrogens [Premarin] 0.625 mg/gram cream 1 appln Vaginal DIRECTED PRN (Reason: DIRECTED) RF: 0 hydrochlorothiazide 25 mg tablet 25 mg PO QAM RF: 0 lorazepam [Ativan] 0.5 mg tablet 0.5 mg PO HS RF: 0 venlafaxine [Effexor XR] 150 mg capsule,extended release 24hr 150 mg PO QAM RF: 0 biotin 1 mg tablet 1 mg PO DAILY RF: 0 omeprazole 40 mg capsule,delayed release(DR/EC) 40 mg PO QAM Qty: 90 RF: 3 tramadol 50 mg tablet 50 mg PO DAILY PRN (Reason: Pain) Qty: 30 RF: 1 valsartan [Diovan] 320 mg tablet 320 mg PO QAM Qty: 90 RF: 3 doxycycline hyclate 100 mg tablet 100 mg PO DAILY Qty: 14 RF: 0 potassium chloride 20 mEq Tablet Extended Release 20 meq PO QAM RF: 0 triamcinolone acetonide 0.1 % Cream 1 applic TOPICAL DAILY RF: 0 Centrum Silver Women 8 mg iron-400 mcg-300 mcg Tablet 1 tab PO QAM RF: 0 Probiotic 3 billion cell Capsule 3,000 packet PO QAM RF: 0 Discontinued potassium chloride 10 mEq capsule, extended release 20 meq PO DAILY RF: 0 No Action levofloxacin [Levaquin] 750 mg tablet 750 mg PO DAILY 14 Days Qty: 14 RF: 0 Stand-Alone Forms: [facility] Discharge Orders: Discharge Order (Routine); Ordered 10/22/18 Ordered By: Hung Gomez Admission Data Admit Date/Time: 10/20/18 12:41 Attending Provider: Hung Gomez Admit Provider: Geovany Mckenna Primary Care Provider: Hernandez iLn Service: Telemetry Medical Other Interventions: Discharge Summary Assessment (RN) Last Done: 10/22/18 14:36 DC Date/Time DO NOT enter until pt leaves facility: 10/22/18 16:24
== END 2018-10-22 16:24 | disposition home or self-care (01) ==
LOC: ED 07:46 → 2N 07:46 → SUATTDRO 12:41 → 2N 13:25

== ENCOUNTER 2021-06-28 20:44 | Observation (INO) ==
[2021-06-28 21:18] LABS: Basophils # (auto) 0.03 K/uL (0-0.2); Basophils % (auto) 0.2 %; Eosinophils # (auto) 0.04 K/uL (0-0.5); Eosinophils % (auto) 0.2 %; Hematocrit (blood only) 45.9 % (37-47); Hemoglobin 14.8 g/dL (12.0-16.0); Immature Granulocytes # (auto) 0.06 K/uL (0.00-0.02); Immature Granulocytes % (auto) 0.4 %; Lymphocytes # (auto) 2.31 K/uL (1.2-3.4); Lymphocytes % (auto) 14.3 %; Mean Corpuscular Hemoglobin 27.9 pg (25-34); Mean Corpuscular Hgb Conc 32.2 g/dL (32-36); Mean Corpuscular Volume 86.4 fL (80-100); Mean Platelet Volume 10.4 fL (7.4-10.4); Monocytes # (auto) 1.81 K/uL (0.11-0.59); Monocytes % (auto) 11.2 %; Neutrophils # (auto) 11.89 K/uL (1.4-6.5); Neutrophils % (auto) 73.7 %; Platelet Count 446 K/uL (130-400); RDW Coefficient of Variation 14.8 % (11.5-14.5); RDW Standard Deviation 46.6 fL (36.4-46.3); Red Blood Count 5.31 M/uL (4.2-5.4); White Blood Count 16.14 K/uL (4.8-10.8)
[2021-06-28 21:32] LABS: INR 1.1 (0.9-1.1); Partial Thromboplastin Ratio 0.9; Prothrombin Time 11.3 Seconds (9.0-12.0)
[2021-06-28] MEDS ORDERED: SODIUM CHLORIDE 0.9% 1000ML 500 ML IV ONE (21:39)
[2021-06-28 21:48] LABS: Alanine Aminotransferase 18 U/L (7-52); Albumin Globulin Ratio 1.2 (0.9-2); Albumin Level 4.2 gm/dl (3.4-5.0); Alkaline Phosphatase 90 U/L (34-104); Anion Gap 10 (3-11); Aspartate Aminotransferase 17 U/L (13-39); BUN Creatinine Ratio 34.4 (10-20); Bilirubin,Total 0.7 mg/dl (0.2-1.0); Blood Urea Nitrogen 31 mg/dl (6-23); Calcium 10.2 mg/dl (8.5-10.1); Carbon Dioxide 25 mmol/L (21-32); Chloride 102 mmol/L (98-107); Est GFR (African American) 68.1 ml/min; Est GFR (Non-African American) 58.7 ml/min; Globulin 3.4 gm/dl (2.5-4.0); Glucose 148 mg/dl (70-99(Fasting)); Magnesium 1.7 mg/dl (1.7-2.4); Potassium 3.9 mmol/L (3.5-5.1); Sodium 137 mmol/L (136-145); Total Protein 7.6 gm/dl (6.0-8.3)
--- NOTE | 2021-06-28 22:10 | Emergency Department Note ---
History of Present Illness General Chief complaint: Shortness of Breath/Dyspnea Stated complaint: SOB Time Seen by Provider: 06/28/21 21:24 History of Present Illness Maximum Pain Intensity: 6 This 85-year-old who just had a nuc med stress test the other day that was negative presents to the ER complaining of worsening dyspnea diarrhea fatigue for the past few months that acutely got worse today Location: Generalized Quality: Weak and shortness of breath Severity: Moderate Duration: Past few months Timing: Started few months ago Context: Patient was concerned and came in Modifying factors: better with rest; worse with activity Patient had a stress test the other day which was negative. Patient has worsening shortness of breath and was concerned and came in. Patient's had chronic diarrhea. Patient denies fevers, vomiting, urinary symptoms, flulike illness. Patient denies chest pain but says she has pressure. Home Medications Medication Instructions Recorded Confirmed Type acetaminophen 500 mg capsule 1,000 mg PO TID PRN cap 11/21/17 06/29/21 History triamcinolone acetonide 0.1 % 1 applic TOPICAL DAILY 12/11/17 06/29/21 History topical cream camphor-menthol 0.2 %-3.5 % 1 appln TOP DAILY PRN 09/15/19 06/29/21 History topical gel conjugated estrogens 0.625 mg/gram 1 applic VAGINAL DIRECTED PRN 12/30/19 06/29/21 Rx vaginal cream (Premarin) #30 g potassium chloride 20 mEq 20 meq PO QAM #90 tab 09/29/20 06/29/21 Rx tablet,extended release hydroxyzine HCl 25 mg tablet 25 mg PO DAILY #90 tab 04/22/21 06/29/21 Rx hydrochlorothiazide 12.5 mg tablet 12.5 mg PO DAILY #90 tab 05/30/21 06/29/21 Rx valsartan 160 mg tablet 160 mg PO DAILY tab 06/02/21 06/29/21 History venlafaxine 225 mg tablet,extended 225 mg PO DAILY #90 tab 06/23/21 06/29/21 Rx release 24 hr tramadol 50 mg tablet 50 mg PO DAILY PRN 06/29/21 06/29/21 History Allergies Allergy/AdvReac Type Severity Reaction Status Date / Time lisinopril Allergy Mild Hives Verified 06/29/21 00:29 nitrofurantoin Allergy Mild Hives Verified 06/29/21 00:29 Penicillins Allergy Mild Hives Verified 06/29/21 00:29 Sulfa (Sulfonamide Allergy Mild Hives Verified 06/29/21 00:29 Antibiotics) Past Med/Surg History Medical History Anxiety Benign paroxysmal positional vertigo Bigeminy DX 1970'S (NO RECENT PROBLEMS) Colitis Depression Generalized osteoarthritis GERD (gastroesophageal reflux disease) H/O nonmelanoma skin cancer Hallux rigidus, left foot Hallux rigidus, right foot Hammertoe of left foot Hearing deficit Hyperglycemia Hypertension Left knee DJD Osteoporosis Peripheral artery disease (~09/2020) moderate reported on LISA Peripheral neuropathy Pressure ulcer of toe of right foot, stage 2 Urinary frequency With cystocele; Surgical intervention had been recommended but deferred due to her 's health concerns Venous stasis ulcer Surgical History History of cholecystectomy History of tonsillectomy Hx of cataract surgery LEFT S/P colonoscopy S/P total abdominal hysterectomy RT OOPHERECTOMY Family History Brother Family history of diabetes mellitus Father Stroke Heart disease Myocardial infarction Mother Leukemia Sister Myocardial infarction Denies family history of Ovarian cancer Prostate cancer Breast cancer Lung cancer Colorectal cancer Cancer Social History Smoking Status: Never smoker Second Hand Exposure: No; Hx Alcohol Use: No Hx Substance Use: No Preferred Language: [place] Communication Ability: Effective Visual Impairment: Limited Hearing Ability: Use of Hearing Aid Director Motion Picture Required: No Beliefs That Will Affect Care: None marital status: Current Living Situation: Alone current occupational status: retired How many Children do You have: 0 Feels Safe at Home: Yes Childhood Exposure to Second-Hand Smoke: No caffeine: Yes during the past year weight has: remained stable Dental Care, Regularly: Yes Physical Activity Frequency: 1-2 Times per Week Seatbelt Use: always Sunscreen Use: Yes Assistive Devices: Cane and Walker Review of Systems A total of 10 systems reviewed and were otherwise negative Physical Exam Vital Signs Vital Signs - 24 hr 06/28/21 20:48 06/28/21 21:09 06/28/21 21:52 Temperature 36.7 C Temperature Source Temporal Artery Scan Pulse Rate 115 H Pulse Rate [Finger] Respiratory Rate 24 Respiratory Effort / Characteristics Non-Labored Respiratory Depth Normal Respiratory Pattern Regular Blood Pressure 95/64 L 112/67 Blood Pressure [Left Arm] Blood Pressure Mean 74 82 Blood Pressure Mean [Left Arm] Blood Pressure Position [Left Arm] Pulse Oximetry 97 Oxygen Delivery Method Room Air Sepsis Recent Fever Within 48 Hours No Sepsis New/Unexplained Change in Mental Status No Sepsis Action Taken by Nursing No Action Required Pulse Oximetry Post Tiitration 97 06/28/21 21:53 06/28/21 22:00 06/28/21 22:10 Temperature Temperature Source Pulse Rate 107 H 105 H 103 H Pulse Rate [Finger] Respiratory Rate 27 H 28 H 34 H Respiratory Effort / Characteristics Respiratory Depth Respiratory Pattern Blood Pressure Blood Pressure [Left Arm] Blood Pressure Mean Blood Pressure Mean [Left Arm] Blood Pressure Position [Left Arm] Pulse Oximetry 94 93 95 Oxygen Delivery Method Sepsis Recent Fever Within 48 Hours Sepsis New/Unexplained Change in Mental Status Sepsis Action Taken by Nursing Pulse Oximetry Post Tiitration 06/28/21 22:33 06/28/21 22:40 06/28/21 22:46 Temperature Temperature Source Pulse Rate 99 H 97 H Pulse Rate [Finger] Respiratory Rate 12 23 Respiratory Effort / Characteristics Respiratory Depth Respiratory Pattern Blood Pressure Blood Pressure [Left Arm] Blood Pressure Mean Blood Pressure Mean [Left Arm] Blood Pressure Position [Left Arm] Pulse Oximetry 93 Oxygen Delivery Method Room Air Sepsis Recent Fever Within 48 Hours Sepsis New/Unexplained Change in Mental Status Sepsis Action Taken by Nursing Pulse Oximetry Post Tiitration 06/28/21 22:48 06/28/21 22:50 06/28/21 23:01 Temperature Temperature Source Pulse Rate 99 H Pulse Rate [Finger] Respiratory Rate 27 H Respiratory Effort / Characteristics Non-Labored Respiratory Depth Respiratory Pattern Blood Pressure Blood Pressure [Left Arm] Blood Pressure Mean Blood Pressure Mean [Left Arm] Blood Pressure Position [Left Arm] Pulse Oximetry 93 92 Oxygen Delivery Method Room Air Room Air Sepsis Recent Fever Within 48 Hours Sepsis New/Unexplained Change in Mental Status Sepsis Action Taken by Nursing Pulse Oximetry Post Tiitration 06/29/21 00:38 Temperature Temperature Source Pulse Rate Pulse Rate [Finger] 100 H Respiratory Rate 18 Respiratory Effort / Characteristics Non-Labored Spontaneous Respiratory Depth Normal Respiratory Pattern Blood Pressure Blood Pressure [Left Arm] 112/67 Blood Pressure Mean Blood Pressure Mean [Left Arm] 82 Blood Pressure Position [Left Arm] Sitting Pulse Oximetry 95 Oxygen Delivery Method Room Air Sepsis Recent Fever Within 48 Hours Sepsis New/Unexplained Change in Mental Status Sepsis Action Taken by Nursing Pulse Oximetry Post Tiitration VITALS: Vitals are noted on the nurse's note and reviewed by myself. Vital signs reviewed. GENERAL: Elderly female hard of hearing following commands in no acute distress, nondiaphoretic, well-developed well-nourished. SKIN: The skin was without rashes, erythema, edema, or bruising. There is no tenting of the skin. Capillary reflex less than 2 seconds. HEAD: Normocephalic atraumatic. EARS: External auditory canals clear, EYES: Pupils equal round and reactive to light and accommodation. Conjunctivae without injection, sclerae without icterus. Extraocular movements intact. NOSE: Patent, turbinates without inflammation or discharge. MOUTH: Mucous membranes moist. Pharynx without erythema or exudate. Uvula midline. Airway patent. Tongue does not deviate. NECK: Supple without nuchal rigidity. No lymphadenopathy. No thyromegaly. Cervical spine is nontender. No JVD. HEART: Regular rate and rhythm LUNGS: Clear to auscultation bilaterally without wheezes, rales or rhonchi. No retractions or accessory muscle use. ABDOMEN: Positive bowel sounds x 4. Normal tympanic percussion. Soft, nontender, without masses or organomegaly. Brice sign negative. No guarding or rebound tenderness. No CVA tenderness MUSCULOSKELETAL: No muscle atrophy, erythema, or edema noted. NEURO: Patient was alert and oriented to person place and time. Normal sensation to light and sharp touch. No focal neurological deficits. Course Administered Medications Heparin Sodium/Dextrose (Heparin Sodium/Dextrose) 25,000 units in 500 mls @ 25 mls/hr IV .Q20H [facility]; Protocol Stop: 07/28/21 22:59 Last Admin: 06/28/21 23:11 Dose: 1,250 units/hr, 25 mls/hr Documented by: [id number] Cosigned by: [id number] Discontinued Medications Heparin Sodium (Porcine) (Heparin Sod (Porcine) 1000 Unit/Ml) 1 units IV NOW ONE Stop: 06/28/21 22:59 Last Admin: 06/28/21 23:11 Dose: 6,000 units Documented by: [id number] Cosigned by: [id number] Heparin Sodium/Dextrose (Heparin Iv Adult Wt-Based Standard With Bolus Protocol) 1 ea IV NOW STA; Protocol Stop: 06/28/21 22:44 Last Admin: 06/28/21 23:14 Dose: Not Given Documented by: [id number] Sodium Chloride (Nss 1000ml) 500 mls @ 999 mls/hr IV .Q31M ONE Stop: 06/28/21 22:09 Last Infusion: 06/28/21 23:16 Dose: 0 mls/hr Documented by: [id number] Admin: 06/28/21 21:56 Dose: 999 mls/hr Documented by: [id number] Acetaminophen (Ofirmev) 1,000 mg in 100 mls @ 400 mls/hr IV NOW STA Stop: 06/28/21 23:03 Last Infusion: 06/28/21 23:40 Dose: 0 mls/hr Documented by: [id number] Admin: 06/28/21 23:12 Dose: 400 mls/hr Documented by: [id number] Ioversol (Optiray 320 125ml) 117 ml IV ONCE ONE Stop: 06/28/21 22:24 Last Admin: 06/28/21 22:28 Dose: 117 ml Documented by: [id number] Critical Care Time I have personally spent 35 minutes of critical care time in the direct management of this patient. This includes bedside care, interpretation of diagnostic studies, and testing, discussion with consultants, patient, and family members, and other required patient management activities. This 35 minutes is in excess of all separately billable procedures. Medical Decision Making Medical Records Attestation: I reviewed the patient's medical records. Home Medications Current Medication List: was personally reviewed by nv Laboratory Data Attestation: I reviewed the patient's lab results. Result diagrams: 06/28/21 21:07 06/28/21 21:07 Lab Results 06/28/21 06/28/21 06/28/21 Range/Units 21: 21: 21:07 WBC 16.14 H (4.8-10.8) K/uL RBC 5.31 (4.2-5.4) M/uL Hgb 14.8 (12.0-16.0) g/dL Hct 45.9 (37-47) % MCV 86.4 (80-100) fL MCH 27.9 (25-34) pg MCHC 32.2 (32-36) g/dL RDW Std Deviation 46.6 H (36.4-46.3) fL RDW Coeff of Nimesh 14.8 H (11.5-14.5) % Plt Count 446 H (130-400) K/uL MPV 10.4 (7.4-10.4) fL Immature Gran % (Auto) 0.4 % Neut % (Auto) 73.7 % Lymph % (Auto) 14.3 % [place] % (Auto) 11.2 % Eos % (Auto) 0.2 % Baso % (Auto) 0.2 % Neut # (Auto) 11.89 H (1.4-6.5) K/uL Lymph # (Auto) 2.31 (1.2-3.4) K/uL [place] # (Auto) 1.81 H (0.11-0.59) K/uL Eos # (Auto) 0.04 (0-0.5) K/uL Baso # (Auto) 0.03 (0-0.2) K/uL Immature Gran # (Auto) 0.06 H (0.00-0.02) K/uL PT 11.3 (9.0-12.0) Seconds INR 1.1 (0.9-1.1) APTT 24.0 (21.0-31.0) Seconds PTT Ratio 0.9 Sodium 137 (136-145) mmol/L Potassium 3.9 (3.5-5.1) mmol/L Chloride 102 (98-107) mmol/L Carbon Dioxide 25 (21-32) mmol/L Anion Gap 10 (3-11) BUN 31 H (6-23) mg/dl Creatinine 0.90 (0.6-1.2) mg/dl Est Cr Clr Drug Dosing Not Reportable Est GFR ( Amer) 68.1 ml/min Est GFR (Non-Af Amer) 58.7 ml/min BUN/Creatinine Ratio 34.4 H (10-20) Glucose 148 H (70-99(Fasting)) mg/dl Calcium 10.2 H (8.5-10.1) mg/dl Magnesium 1.7 (1.7-2.4) mg/dl Total Bilirubin 0.7 (0.2-1.0) mg/dl AST 17 (13-39) U/L ALT 18 (7-52) U/L Alkaline Phosphatase 90 (34-104) U/L Troponin I 0.10 H* (0-0.04) ng/ml Total Protein 7.6 (6.0-8.3) gm/dl Albumin 4.2 (3.4-5.0) gm/dl Globulin 3.4 (2.5-4.0) gm/dl Albumin/Globulin Ratio 1.2 (0.9-2) TSH (0.300-4.500) uIu/ml SARS-CoV-2, RNA, NAAT (NEGATIVE) 06/28/21 06/28/21 06/28/21 Range/Units 21:07 22:55 23:47 WBC (4.8-10.8) K/uL RBC (4.2-5.4) M/uL Hgb (12.0-16.0) g/dL Hct (37-47) % MCV (80-100) fL MCH (25-34) pg MCHC (32-36) g/dL RDW Std Deviation (36.4-46.3) fL RDW Coeff of Nimesh (11.5-14.5) % Plt Count (130-400) K/uL MPV (7.4-10.4) fL Immature Gran % (Auto) % Neut % (Auto) % Lymph % (Auto) % [place] % (Auto) % Eos % (Auto) % Baso % (Auto) % Neut # (Auto) (1.4-6.5) K/uL Lymph # (Auto) (1.2-3.4) K/uL [place] # (Auto) (0.11-0.59) K/uL Eos # (Auto) (0-0.5) K/uL Baso # (Auto) (0-0.2) K/uL Immature Gran # (Auto) (0.00-0.02) K/uL PT (9.0-12.0) Seconds INR (0.9-1.1) APTT (21.0-31.0) Seconds PTT Ratio Sodium (136-145) mmol/L Potassium (3.5-5.1) mmol/L Chloride (98-107) mmol/L Carbon Dioxide (21-32) mmol/L Anion Gap (3-11) BUN (6-23) mg/dl Creatinine (0.6-1.2) mg/dl Est Cr Clr Drug Dosing Est GFR ( Amer) ml/min Est GFR (Non-Af Amer) ml/min BUN/Creatinine Ratio (10-20) Glucose (70-99(Fasting)) mg/dl Calcium (8.5-10.1) mg/dl Magnesium (1.7-2.4) mg/dl Total Bilirubin (0.2-1.0) mg/dl AST (13-39) U/L ALT (7-52) U/L Alkaline Phosphatase (34-104) U/L Troponin I 0.11 H* (0-0.04) ng/ml Total Protein (6.0-8.3) gm/dl Albumin (3.4-5.0) gm/dl Globulin (2.5-4.0) gm/dl Albumin/Globulin Ratio (0.9-2) TSH 2.573 (0.300-4.500) uIu/ml SARS-CoV-2, RNA, NAAT NEGATIVE (NEGATIVE) Imaging Data Attestation: I personally reviewed and interpreted this imaging study as follows: MDM Narrative Prior records/ancillary studies reviewed and summarized above. Nursing notes reviewed. Additional history obtained from family. The patient's history was concerning for shortness of breath, weakness, diarrhea. Differential diagnosis: Etiologies such as metabolic, infection, hypo/hyperglycemia, electrolyte abnormalities, cardiac sources, intracerebral event, toxicologic, neurologic, as well as others were entertained. Physical examination: As above. ER treatment provided: IV Lock An order was placed for continuous cardiac monitoring. The monitor shows a rate of 60-1 50 with a sinus rhythm. IV fluids, heparin On reassessment the patient felt better. Diagnostics interpretation by me: ECG: Ordered for weakness EKG: Poor baseline, normal sinus, normal intervals, Q waves in the inferior leads, low voltage, no acute ST-T wave changes, rate of 100. Impression normal sinus rhythm low voltage interpreted by myself I think arrhythmia is unlikely. EKG shows normal sinus rhythm with no interval a bnormalities such as QT prolongation or WPW. There are no findings to suggest Brugada syndrome. Cardiac monitoring in the emergency department reveals no tachycardic or bradycardic dysrhythmia. Hypertrophic cardiomyopathy was considered but there are no clear historical elements pointing toward this. EKG is not suggestive. The QRS voltage is not extremely large and there are no suggestive Q waves. EKG #2 order for positive troponin EKG: Poor baseline, normal sinus, occasional PVC, no acute ST-T wave changes. Impression sinus tachycardia with occasional PVC interpreted by myself I think arrhythmia is unlikely. EKG shows normal sinus rhythm with no interval abnormalities such as QT prolongation or WPW. There are no findings to suggest Brugada syndrome. Cardiac monitoring in the emergency department reveals no tachycardic or bradycardic dysrhythmia. Hypertrophic cardiomyopathy was conside red but there are no clear historical elements pointing toward this. EKG is not suggestive. The QRS voltage is not extremely large and there are no suggestive Q waves. The labs revealed positive troponin and repeat was ordered Imaging studies: Preliminary Findings Only See Final Report For Complete Findings CT ABDOMEN & PELVIS With Contrast: Comparison to ultrasound from February 12, [address] scan from November 05, 2014. Biliary duct dilation postcholecystectomy with the common bile duct measuring up to 17 mm. No choledocholithiasis is seen. The liver, pancreas, spleen, adrenal glands, and kidneys appear within normal limits. The abdominal aorta is mildly calcified but nondilated. Bowel loops are nondilated. There is diverticulosis of the sigmoid colon w ithout signs of acute diverticulitis. No acute inflammatory changes are seen involving the bowel. The uterus is absent. No free fluid in the pelvis. Scoliosis and degenerative changes in the lumbar spine. No acute fracture or subluxation. Radiologist: Puma White MD CTA CHEST: Comparison to chest x-ray from June 28, 2021. There are large filling defects in the distal right main pulmonary artery extending into the upper, middle, and lower lobe branches. There are smaller pulmonary emboli on the left within the upper and lower lobes. The clot burden is moderate. The RV/LV ratio is abnormally elevated at 1.3 suggesting some component of right heart strain. The aorta is mildly calcified but nondilated. There is no aneurysm or dissection. The heart is not enlarged. Severe coronary calcification is present. No pericardial effusion. Lungs are well-inflated with minimal scattered subsegmental atelectasis. No infiltrate, pneumothorax, or pleural effusion. Mild degenerative changes in the thoracic spine. No fracture or bone lesion. Radiologist: Puma White MD HEART SCORE: Hx: high/mod/low suspicion: 0 ECG: ST depression/nonspecific changes/normal: 0 Age: Greater than 65/45-64/less than 45: 2 Risk factors: (Hypertension, hyperlipidemia, diabetes, coronary disease, tobacco use, cocaine use): 1 Troponin: Greater than 2 times normal limits/1-2 times normal limits/normal: 1 Total: 3 Consultation: A consultation was placed with the hospitalist. The case was discussed and diagnostics were reviewed. The patient was evaluated in the ER for further treatment. Exam and history seem consistent with PE. Patient had right heart strain. She was heparinized. Medicine is consulted. She will be evaluated for admission. Patient was reassessed multiple times. Emergent CTA was ordered. By the evaluation outlined above emergent etiologies such as infection, electrolyte abnormalities, intracerebral event, toxologic, neurologic, abnormalities blood glucose, metabolic, as well as others were deemed relatively unlikely. The pt informed about the findings as listed above. All questions were answered and pleased with the treatment. The chart was completed utilizing [employer] Speech voice recognition software. Grammatical errors, random word insertions, pronoun errors, and incomplete sentences are an occassional consequence of this system due to software limitations, ambient noise, and hardware issues. Any formal questions or concerns about the content, text, or information contained within the body of this dictation should be directly addressed to the physician inventory assistant for clarification. Impression & Plan Pulmonary embolism, Elevated troponin Discharge Plan Visit Data Chief Complaint: Shortness of Breath/Dyspnea Stated Complaint: SOB ED Provider: Chinmay Friedman ED Midlevel Provider: Karmen James Discharge Problem: Pulmonary embolism, Elevated troponin Patient Disposition: Admitted As Inpatient Condition: Fair Discharge Instructions Interventions: ED Discharge Assessment Last Done: 06/29/21 01:19 Forms Stand Alone Forms: [facility] [employer] Prescriptions Prescriptions: No Action acetaminophen 500 mg capsule 1,000 mg PO TID PRN (Reason: Pain) RF: 0 potassium chloride 20 mEq tablet extended release 20 meq PO QAM Qty: 90 RF: 3 hydroxyzine HCl 25 mg tablet 25 mg PO DAILY Qty: 90 RF: 3 hydrochlorothiazide 12.5 mg tablet 12.5 mg PO DAILY Qty: 90 RF: 3 venlafaxine 225 mg tablet extended release 24hr 225 mg PO DAILY Qty: 90 RF: 3 valsartan 160 mg tablet 160 mg PO DAILY RF: 0 camphor-menthol 0.2-3.5 % gel 1 appln TOP DAILY PRN (Reason: ..) RF: 0 Premarin 0.625 mg/gram cream 1 applic Vaginal DIRECTED PRN (Reason: DIRECTED) Qty: 30 RF: 1 triamcinolone acetonide 0.1 % Cream 1 applic TOPICAL DAILY RF: 0 tramadol 50 mg tablet 50 mg PO DAILY PRN (Reason: Pain) RF: 0 Referrals Referrals: Kavin Witt DO [Primary Care Provider] - Discharge Problem: Pulmonary embolism Qualifiers: Pulmonary embolism type: unspecified Chronicity: acute Acute cor pulmonale presence: unspecified Qualified Code(s): I26.99 - Other pulmonary embolism without acute cor pulmonale
[2021-06-28] MEDS: OPTIRAY 320 125ml IV ONE (22:28)
[2021-06-28] MEDS ORDERED: Heparin IV Adult Wt-Based Standard WITH Bolus Protocol IV STA (22:43)
[2021-06-28] MEDS ORDERED: ACETAMINOPHEN 1,000 MG/100 ML VIAL IV STA (22:49)
[2021-06-28] MEDS ORDERED: HEPARIN SOD (PORCINE) 1000 UNIT/ML IV ONE (22:58)
[2021-06-28] MEDS: HEPARIN SODIUM/DEXTROSE 25,000 UNITS/500 ML BAG IV SCH (23:11)
--- NOTE | 2021-06-28 23:20 | Emergency Department Note ---
ED Visit Note This Patient was discussed with the physician optometry assistant, Karmen James PA-C The pertinent historical and physical exam findings were confirmed. I agree with the studies ordered and with the interpretations of these studies. I agree with the disposition and care plan. . : Pulmonary embolism Qualifiers: Pulmonary embolism type: saddle Chronicity: acute Acute cor pulmonale presence: unspecified Qualified Code(s): I26.92 - Saddle embolus of pulmonary artery without acute cor pulmonale
--- NOTE | 2021-06-29 00:12 | History & Physical Report ---
Date of Service June 29, 2021 Assessment & Plan (1) Pulmonary embolism: Plan: 85-year-old female who is a resident of the [place] with a past medical history of hypertension, dyspnea, chest tightness, depression, PAD, neuropathy, venous stasis presents to the emergency department complaining of worsening dyspnea, diarrhea, and fatigue for the past few months got acutely worse today diagnosed with saddle PE. #Dyspnea and chest pain secondary to pulmonary embolism Patient with a progressively worsening history of dyspnea and chest pain recently underwent nuclear medicine scan which was normal. She states her symptoms of dyspnea and chest pain acutely worsened today causing her to present to the emergency department. CTA evaluation in the ED demonstrated pulmonary embolism with moderate clot burden. The patient was heparinized and the hospital service consulted for admission -Admit to med telemetry for monitoring of hemodynamic stability -Continue heparin drip -A.m. coag studies -Primary team will need to determine long-term anticoagulation strategy -Consider consulting hematology -As needed O2 to maintain sats greater than 92% -Pain control with Tylenol and morphine -Tylenol preferred as morphine will have a respiratory dip present affect #Elevated troponin Likely demand ischemia in the setting of PE. Recent negative dobutamine stress test, EKG does not demonstrate significant ST elevations -EKG with chest pain -trend trop #Hypertension -Continue hydrochlorothiazide 12.5 mg p.o. daily -Continue valsartan 160 mg daily #Diarrhea Largely related to diet. -Notify provider if patient requires loperamide #Electrolyte derangements Daily BMP, replete as indicated -Continue home potassium #Anxiety depression Venlafaxine to 25 mg every 24 #peripheral neuropathy -Holding tramadol #Thrombocytosis Known history of could be contributing to current presentation follows with Mark Valencia: Heart healthy diet Code Status: Full code DVT PPX: Heparin PT/OT: Consulted Case Management: Consulted Dispo: MedSurg with telemetry Stan White MD PGY 3, FCM This chart was completed utilizing [employer] voice recognition software. Grammatical errors, random word insertions, pronoun errors, and in complete sentences are an occasional consequence of the system. Any questions or concerns about the content, text, or information contained within the body of this dictation should be addressed directly to the physician for clarification. (2) Elevated troponin: (3) Depression: (4) Thrombocytosis: (5) Peripheral neuropathy: (6) GERD (gastroesophageal reflux disease): (7) Dyspnea: History of Present Illness Primary Care Provider: Kavin Witt DO 85-year-old female who is a resident of the [place] with a past medical history of hypertension, dyspnea, chest tightness, depression, PAD, neuropathy, venous stasis presents to the emergency department complaining of worsening dyspnea, diarrhea, and fatigue for the past few months got acutely worse today diagnosed with PE. Patient states she is been in her usual state of health however noticed progressive dyspnea over the past month. She states it acutely worsened earlier today noting it was difficult to rise from a chair. This prompted her evaluation emergency department On presentation the emergency department routine labs were obtained EKG demonstrating poor baseline, normal sinus, occasional PVCs. Routine labs were obtained CBC was notable for a white count of 16.4, platelets of 446, PT/INR was within normal limits, chemistries demonstrated elevated glucose to 148 liver function studies were within normal limits. Imaging studies were performed, CT abdomen pelvis was negative, chest CTA demonstrating large filling defect in the distal right main pulmonary artery pulmonary emboli on the left upper and lower lobes clot burden is moderate additionally evidence of right heart strain, severe coronary calcifications present. Given her multitude of findings evidence of pulmonary embolism on CTA the primary service was consulted for admission. Upon arrival to the patient's room she is resting comfortably in bed noting that she is feeling better. She denies any acute pain. She states she has been tolerating her diet, voiding, stooling. She does note a longstanding history of diarrhea which she says has occurred for greater than 4 years and is largely related to her diet. Allergies Allergy/AdvReac Type Severity Reaction Status Date / Time lisinopril Allergy Mild Hives Verified 06/29/21 00:29 nitrofurantoin Allergy Mild Hives Verified 06/29/21 00:29 Penicillins Allergy Mild Hives Verified 06/29/21 00:29 Sulfa (Sulfonamide Allergy Mild Hives Verified 06/29/21 00:29 Antibiotics) Home Medications Medication Instructions Recorded Confirmed Type acetaminophen 500 mg capsule 1,000 mg PO TID PRN cap 11/21/17 06/29/21 History triamcinolone acetonide 0.1 % 1 applic TOPICAL DAILY 12/11/17 06/29/21 History topical cream camphor-menthol 0.2 %-3.5 % 1 appln TOP DAILY PRN 09/15/19 06/29/21 History topical gel conjugated estrogens 0.625 mg/gram 1 applic VAGINAL DIRECTED PRN 12/30/19 06/29/21 Rx vaginal cream (Premarin) #30 g potassium chloride 20 mEq 20 meq PO QAM #90 tab 09/29/20 06/29/21 Rx tablet,extended release hydroxyzine HCl 25 mg tablet 25 mg PO DAILY #90 tab 04/22/21 06/29/21 Rx hydrochlorothiazide 12.5 mg tablet 12.5 mg PO DAILY #90 tab 05/30/21 06/29/21 Rx valsartan 160 mg tablet 160 mg PO DAILY tab 06/02/21 06/29/21 History venlafaxine 225 mg tablet,extended 225 mg PO DAILY #90 tab 06/23/21 06/29/21 Rx release 24 hr tramadol 50 mg tablet 50 mg PO DAILY PRN 06/29/21 06/29/21 History Past Med/Surg History Medical History Anxiety Benign paroxysmal positional vertigo Bigeminy DX 1970'S (NO RECENT PROBLEMS) Colitis Depression Generalized osteoarthritis GERD (gastroesophageal reflux disease) H/O nonmelanoma skin cancer Hallux rigidus, left foot Hallux rigidus, right foot Hammertoe of left foot Hearing deficit Hyperglycemia Hypertension Left knee DJD Osteoporosis Peripheral artery disease (~09/2020) moderate reported on LISA Peripheral neuropathy Pressure ulcer of toe of right foot, stage 2 Urinary frequency With cystocele; Surgical intervention had been recommended but deferred due to her 's health concerns Venous stasis ulcer Surgical History History of cholecystectomy History of tonsillectomy Hx of cataract surgery LEFT S/P colonoscopy S/P total abdominal hysterectomy RT OOPHERECTOMY Family History Brother Family history of diabetes mellitus Father Stroke Heart disease Myocardial infarction Mother Leukemia Sister Myocardial infarction Denies family history of Ovarian cancer Prostate cancer Breast cancer Lung cancer Colorectal cancer Cancer Social History Smoking Status: Never smoker Second Hand Exposure: No; Hx Alcohol Use: No Hx Substance Use: No Preferred Language: Guinean Communication Ability: Effective Visual Impairment: Limited Hearing Ability: Use of Hearing Aid Card Maker Required: No Beliefs That Will Affect Care: None marital status: Current Living Situation: Alone current occupational status: retired How many Children do You have: 0 Other Information That Helps Us Care for You: No Feels Safe at Home: Yes Safety Concerns: Feels Safe At This Time Childhood Exposure to Second-Hand Smoke: No caffeine: Yes during the past year weight has: remained stable Dental Care, Regularly: Yes Physical Activity Frequency: 1-2 Times per Week Seatbelt Use: always Sunscreen Use: Yes Assistive Devices: Cane, Denture - Upper and Hearing Aid - Bilateral Review of Systems Review of Systems: as above Physical Exam Physical Exam: General: No acute distress HEENT: Normocephalic atraumatic Neck: No significant lymphadenopathy, trachea midline, normal to visual inspection Cardiac: Regular rate and rhythm, normal S1, normal S2, I did not appreciated any significant murmurs rubs or gallops, I did not appreciate any significant pedal edema, No calf tenderness, capillary refill is less than 3 seconds Respiratory: Clear to auscultation bilaterally with symmetrical chest rise, I did not appreciate any significant wheezes, rales, rhonchi, no increased work of breathing notes pain with respiration GI: Normal bowel sounds, soft, nontender in all 4 quadrants, nondistended Skin: [place], clean, dry, intact. Neuro: Alert and oriented x4 Psych: Calm, cooperative, logical thought process Results & Data Results & Data ([facility]) Vital Signs (Past 12 Hours) Vital Signs Temp Pulse Resp BP Pulse Ox 06/28/21 23:01 92 06/28/21 22:50 99 H 27 H 93 06/28/21 22:40 97 H 23 93 06/28/21 22:33 99 H 12 06/28/21 22:10 103 H 34 H 95 06/28/21 22:00 105 H 28 H 93 06/28/21 21:53 107 H 27 H 94 06/28/21 21:52 112/67 06/28/21 20:48 36.7 C 115 H 24 95/64 L 97 Laboratory Results Laboratory Results WBC 16.14 K/uL (4.8-10.8) H 06/28/21 21:07 RBC 5.31 M/uL (4.2-5.4) 06/28/21 21:07 Hgb 14.8 g/dL (12.0-16.0) 06/28/21 21:07 Hct 45.9 % (37-47) 06/28/21 21:07 MCV 86.4 fL (80-100) 06/28/21 21:07 MCH 27.9 pg (25-34) 06/28/21 21:07 MCHC 32.2 g/dL (32-36) 06/28/21 21:07 RDW Std Deviation 46.6 fL (36.4-46.3) H 06/28/21 21:07 RDW Coeff of Nimesh 14.8 % (11.5-14.5) H 06/28/21 21:07 Plt Count 446 K/uL (130-400) H 06/28/21 21:07 MPV 10.4 fL (7.4-10.4) 06/28/21 21:07 Immature Gran % (Auto) 0.4 % 06/28/21 21:07 Neut % (Auto) 73.7 % 06/28/21 21:07 Lymph % (Auto) 14.3 % 06/28/21 21:07 Cameron % (Auto) 11.2 % 06/28/21 21:07 Eos % (Auto) 0.2 % 06/28/21 21:07 Baso % (Auto) 0.2 % 06/28/21 21:07 Neut # (Auto) 11.89 K/uL (1.4-6.5) H 06/28/21 21:07 Lymph # (Auto) 2.31 K/uL (1.2-3.4) 06/28/21 21:07 Cameron # (Auto) 1.81 K/uL (0.11-0.59) H 06/28/21 21:07 Eos # (Auto) 0.04 K/uL (0-0.5) 06/28/21 21:07 Baso # (Auto) 0.03 K/uL (0-0.2) 06/28/21 21:07 Immature Gran # (Auto) 0.06 K/uL (0.00-0.02) H 06/28/21 21:07 PT 11.3 Seconds (9.0-12.0) 06/28/21 21:07 INR 1.1 (0.9-1.1) 06/28/21 21:07 APTT 24.0 Seconds (21.0-31.0) 06/28/21 21:07 PTT Ratio 0.9 06/28/21 21:07 Sodium 137 mmol/L (136-145) 06/28/21 21:07 Potassium 3.9 mmol/L (3.5-5.1) 06/28/21 21:07 Chloride 102 mmol/L (98-107) 06/28/21 21:07 Carbon Dioxide 25 mmol/L (21-32) 06/28/21 21:07 Anion Gap 10 (3-11) 06/28/21 21:07 BUN 31 mg/dl (6-23) H 06/28/21 21:07 Creatinine 0.90 mg/dl (0.6-1.2) 06/28/21 21:07 Est Cr Clr Drug Dosing Not Reportable 06/28/21 21:07 Est GFR ( Amer) 68.1 ml/min 06/28/21 21:07 Est GFR (Non-Af Amer) 58.7 ml/min 06/28/21 21:07 BUN/Creatinine Ratio 34.4 (10-20) H 06/28/21 21:07 Glucose 148 mg/dl (70-99(Fasting)) H 06/28/21 21:07 Calcium 10.2 mg/dl (8.5-10.1) H 06/28/21 21:07 Magnesium 1.7 mg/dl (1.7-2.4) 06/28/21 21:07 Total Bilirubin 0.7 mg/dl (0.2-1.0) 06/28/21 21:07 AST 17 U/L (13-39) 06/28/21 21:07 ALT 18 U/L (7-52) 06/28/21 21:07 Alkaline Phosphatase 90 U/L (34-104) 06/28/21 21:07 Troponin I 0.11 ng/ml (0-0.04) H* 06/28/21 23:47 Total Protein 7.6 gm/dl (6.0-8.3) 06/28/21 21:07 Albumin 4.2 gm/dl (3.4-5.0) 06/28/21 21:07 Globulin 3.4 gm/dl (2.5-4.0) 06/28/21 21:07 Albumin/Globulin Ratio 1.2 (0.9-2) 06/28/21 21:07 TSH 2.573 uIu/ml (0.300-4.500) 06/28/21 21:07 SARS-CoV-2, RNA, NAAT NEGATIVE (NEGATIVE) 06/28/21 22:55 Supervising Physician Co-Signing Physician Notes Patient seen and examined, chart reviewed, I agree with the assessment and plan as above with exceptions noted below. Patient is sn 85yo female presenting with acute worsening SOB, found with saddle PE - large filling defects in distal right main pulmonary artery extending into the upper, middle and lower lobe branches with smaller pulmonary emboli on the left. Moderate clot burden. Some component of right heart strain baed on RV/LV. Patient denies chest pain, SOB at present. No personal history of VTE but she does have a strong family history of VTE in several siblings - states that her siblings have tested positive for Factor V Leiden mutation. Patient has never been personally tested for a clotting disorder. No trauma, immobility Normothermic, tachycardic on arrival at 115, blood pressure 95/64 NAD, resting comfortably, no dyspnea or chest pain Skin warm dry, pink with good capillary refill HEENT - NC/AT, PERRL, MMM, Neck supple, No JVD Heart - +S1S2, regular, no m/r/g Lungs - CTA Abd - soft NT/ND Ext - warm, well perfused, some varicosities noted on bilateral LE, no edema/redness/tenderness Assessment/Plan -saddle PE with evidence of right heart strain noted on CTA -elevated troponin of 0.11 -Based on initial VS with HR >110 and SBP < 100 - PESI score is 134 - Very high risk - 30 day mortality of 10-24.5% -Shock index of 1.1 - possibly denoting occult shock -will continue Heparin gtt -HOLD antihypertensives - Valsartan and HCTZ -Gentle IVF - LR at 80mL/hr x 500mL -Check 2D echo in AM -Remainder as above (1) Dyspnea Dyspnea type: dyspnea on exertion Qualified Code(s): R06.00 - Dyspnea, unspecified (2) Peripheral neuropathy Peripheral neuropathy type: polyneuropathy, unspecified Qualified Code(s): G62.9 - Polyneuropathy, unspecified (3) Pulmonary embolism Acute cor pulmonale presence: unspecified Chronicity: acute Pulmonary embolism type: saddle Qualified Code(s): I26.92 - Saddle embolus of pulmonary artery without acute cor pulmonale
[2021-06-29] MEDS ORDERED: ALUMINUM/MAGNESIUM SUSP 30 ML UDC PO PRN (00:27)
[2021-06-29] MEDS ORDERED: MoRPHine SULFATE 2 MG/ML CARP IV PRN (02:09)
[2021-06-29] MEDS: OPTIRAY 320 125ml IV ONE (02:09)
[2021-06-29] MEDS ORDERED: MENTHOL-ZINC OXIDE 360 APPLN/120 GM TUBE EXT PRN (03:03)
--- NOTE | 2021-06-29 04:01 | Billing Data ---
Date of Service June 29, 2021 Coding Level of Care Code 80994 Initial Inpt Care Lvl 3
[2021-06-29] MEDS ORDERED: LACTATED RINGER'S 500 ML IV SCH (04:15)
[2021-06-29] MEDS: ACETAMINOPHEN 500 MG TAB PO SCH ×2 (06:17→14:05)
[2021-06-29 06:21] LABS: Basophils # (auto) 0.02 K/uL (0-0.2); Basophils % (auto) 0.1 %; Eosinophils # (auto) 0.01 K/uL (0-0.5); Eosinophils % (auto) 0.1 %; Hematocrit (blood only) 40.7 % (37-47); Hemoglobin 13.6 g/dL (12.0-16.0); Immature Granulocytes # (auto) 0.04 K/uL (0.00-0.02); Immature Granulocytes % (auto) 0.3 %; Lymphocytes # (auto) 1.81 K/uL (1.2-3.4); Lymphocytes % (auto) 11.3 %; Mean Corpuscular Hemoglobin 28.3 pg (25-34); Mean Corpuscular Hgb Conc 33.4 g/dL (32-36); Mean Corpuscular Volume 84.6 fL (80-100); Mean Platelet Volume 10.6 fL (7.4-10.4); Monocytes # (auto) 2.59 K/uL (0.11-0.59); Monocytes % (auto) 16.2 %; Platelet Count 388 K/uL (130-400); RDW Coefficient of Variation 14.7 % (11.5-14.5); RDW Standard Deviation 45.7 fL (36.4-46.3); Red Blood Count 4.81 M/uL (4.2-5.4); White Blood Count 15.97 K/uL (4.8-10.8)
--- NOTE | 2021-06-29 06:39 | XRay Report ---
SINGLE VIEW CHEST CLINICAL HISTORY: Atypical chest pain. Dyspnea FINDINGS: An AP, portable, upright chest radiograph is compared to study dated 05/13/2019. The heart i s mildly enlarged noting atherosclerotic calcification of the thoracic aorta. The pulmonary vasculatu re is noncongested. Chronic interstitial thickening and elevation of the right hemidiaphragm is simil ar to previous. The lungs and pleural spaces are otherwise clear. No pneumothorax is seen. The skelet al structures are osteopenic. The bony thorax is grossly intact. IMPRESSION: Mild cardiomegaly with no acute cardiopulmonary abnormality. ACT 112: Negative or not required by law. Electronically signed by: Anish Whitaker M.D. 06/29/2021 6:37 AM
[2021-06-29 06:47] LABS: Partial Thromboplastin Ratio 4.5
[2021-06-29 06:50] LABS: Partial Thromboplastin Time 122.7 Seconds (21.0-31.0)
[2021-06-29 06:53] LABS: Albumin Globulin Ratio 1.1 (0.9-2); Albumin Level 3.5 gm/dl (3.4-5.0); BUN Creatinine Ratio 39.1 (10-20); Bilirubin,Total 0.9 mg/dl (0.2-1.0); Calcium 9.3 mg/dl (8.5-10.1); Creatinine Clr Calc Pharmacy 58.9 ml/min; Est GFR (African American) 92.6 ml/min; Est GFR (Non-African American) 79.9 ml/min; Globulin 3.1 gm/dl (2.5-4.0); Potassium 3.5 mmol/L (3.5-5.1); Total Protein 6.6 gm/dl (6.0-8.3)
--- NOTE | 2021-06-29 07:47 | CT Scan Report ---
CT ANGIOGRAM OF THE CHEST; CT SCAN OF THE ABDOMEN AND PELVIS WITH IV CONTRAST CLINICAL HISTORY: Dyspnea. Atypical chest pain. Generalized weakness. Generalized abdominal pain. COMPARISON STUDY: Chest x-ray dated 06/28/2021. Abdominal ultrasound dated 02/12/2017. Abdominal CT da liana 11/05/2014. TECHNIQUE: Following the IV administration of 117 of Optiray 320, CT angiogram of the chest is perfor med from the upper abdomen to the thoracic inlet utilizing the pulmonary embolus protocol. Images are reviewed in the axial, sagittal, coronal planes. 3-D MIPS images are created and assessed. Subsequen tly, CT scan of the abdomen and pelvis was performed from the lung bases to the proximal femora. Imag es are reviewed in the axial, sagittal, and coronal planes. IV contrast was administered without comp lication. A dose lowering technique was utilized adhering to the principles of ALARA. The Examination s are compromised by motion artifact. CT DOSE: 788.60 mGy.cm FINDINGS: CHEST: Thyroid: Normal in size and heterogeneous in attenuation. Thoracic aorta: There is atherosclerotic calcification of the thoracic aorta, with is normal in calib er and demonstrates standard 3-vessel arch anatomy. The aorta is not well opacified. Pulmonary vasculature: The main pulmonary arteries are mildly dilated suggesting pulmonary artery hyp ertension. There is a large amount of thrombus within the distal right main pulmonary artery. This ex tends into the right upper, middle, and lower lobe pulmonary arteries into segmental and subsegmental branches. Pulmonary emboli are also seen within the left upper and left lower lobe pulmonary arterie s extending into segmental and subsegmental branches. Heart: The heart is normal in size and without pericardial effusion. The coronary arteries are densel y calcified. Lungs and pleural spaces: Evaluation of the lung parenchyma is degraded by motion artifact. Small sub pleural wedge-shaped opacities in the right upper lung likely represent tiny pulmonary infarcts (imag es #191 and #196). There is no airspace consolidation typical for pneumonia and no pleural effusion i s identified. The trachea and central airways are clear. A 3 mm nodule in the superior segment of the left lower lobe as seen on image #192. Mediastinum: There is no mediastinal lymphadenopathy. Estela: Clear. Axillae: There is no axillary lymphadenopathy. Bony thorax: The skeletal structures are osteopenic. Degenerative change and mild scoliosis are noted in the thoracic spine. Arthritic change is seen in the shoulders. No lytic or blastic lesions are id entified. ABDOMEN AND PELVIS: Liver: The contrast-enhanced liver is normal in size, contour, and attenuation. There is mild to mode rate intrahepatic or ductal dilatation. The hepatic veins and portal veins are patent. Gallbladder: Surgically absent. Spleen: Normal in size and attenuation. Pancreas: Moderately atrophic and grossly unremarkable. Adrenal glands: Unremarkable. Kidneys: The contrast enhanced kidneys demonstrate cortical atrophy and are without hydronephrosis. T he kidneys enhance symmetrically. Scattered subcentimeter cortical hypodensities likely represent cys ts but are too small for definitive characterization. Abdominal vasculature: The abdominal aorta is normal in course and caliber noting moderate atheroscle rotic calcification. Bowel: There is moderate colonic diverticulosis without CT evidence of acute diverticulitis. No bowel obstruction is identified. The appendix is not identified and reported surgically absent. Peritoneum: There is no intraperitoneal free air or abdominal ascites. Lymphadenopathy: None. Pelvic viscera: The bladder is normal as visualized. The uterus is surgically absent. No adnexal lesi on is seen. Skeletal structures: The skeletal structures are osteopenic. There is lumbosacral spondylosis and sco liosis. There are healed left pubic ring fractures. No lytic or blastic lesions are seen. IMPRESSION: 1. Extensive bilateral pulmonary emboli as above. 2. Tiny pulmonary infarcts are noted in the right lung. 3. There is airspace consolidation typical for pneumonia or pleural effusion. 4. No acute infectious or inflammatory findings are identified in the abdomen or pelvis there 5. Intra and extrahepatic biliary ductal dilatation is nonspecific and may be related to prior cholec ystectomy. Correlate with clinical findings and serum bilirubin levels. 6. Colonic diverticulosis without CT evidence of acute diverticulitis. 7. Additional findings as above. ACT 112: Negative or not required by law. Electronically signed by: Anish Whitaker M.D. 06/29/2021 7:44 AM
[2021-06-29] MEDS: POTASSIUM CHLORIDE CRTAB 20 MEQ TABCR PO SCH (08:45)
[2021-06-29] MEDS: POLYETHYLENE (MIRALAX) 17 GM PACK PO SCH (08:46)
[2021-06-29] MEDS: VENLAFAXINE HCL XR 75 MG CAPXR PO SCH (08:46)
[2021-06-29] MEDS: hydrOXYzine HCl 25 MG TAB PO SCH (08:47)
[2021-06-29] MEDS: TRIAMCINOLONE ACET 0.1% CR 15 GM TUBE TOP SCH (08:51)
[2021-06-29] MEDS ORDERED: hydroCHLOROthiazide 25 MG TAB PO SCH (09:00)
[2021-06-29] MEDS ORDERED: VALSARTAN 80 MG TAB PO SCH (09:00)
--- NOTE | 2021-06-29 11:29 | Hospitalist Progress Note ---
Date of Service June 29, 2021 Assessment & Plan (1) Pulmonary embolism: Plan: 85-year-old female who is a resident of the [place] with a past medical history of hypertension, dyspnea, chest tightness, depression, PAD, neuropathy, venous stasis presents to the emergency department complaining of worsening dyspnea, diarrhea, and fatigue for the past few months got acutely worse 06/28/21 diagnosed with saddle PE with moderate clot burden by CT angiogram Dyspnea and chest pain secondary to pulmonary embolism. Patient with a progressively worsening history of dyspnea and chest pain recently underwent nuclear medicine scan 06/24/21 which was normal. -continue heparin gtt, consider transition to DOAC -Pain control with Tylenol and morphine Elevated troponin is demand ischemia in the setting of PE. troponin trend is flat Recent negative dobutamine stress test, EKG does not demonstrate significant ST elevations Hypertension -blood pressures are lower, will hold hydrocholorthiazide valsartan 160 mg daily Diarrhea- unrevealing CT abd/pelvis on presentation, does have leukocytosis, check stool biofire if persists Anxiety depression Venlafaxine to 25 mg every 24 peripheral neuropathy no current complaints -Holding tramadol Thrombocytosis platelet count now normal follows with Mark Valencia: Heart healthy diet Code Status: Full code DVT PPX: Heparin PT/OT: Consulted due to size of PE continue with telemetry (2) Elevated troponin: (3) Depression: (4) Thrombocytosis: (5) Peripheral neuropathy: (6) GERD (gastroesophageal reflux disease): (7) Dyspnea: Admission and Anticipated Discharge Date Admission Date: June 29, 2021 Subjective this pt is feeling better but still remains with shortness of breath Family relates that the pt has been having persistent diarrhea and some decreased appetite Review of Systems Review of Systems: Mild distress and exertional fatigue no headache, no visual changes no speech or swallowing issues no chest pain, pressure or palpitations shortness of breath, no cough or wheezes no abdominal pain, nausea or vomiting, loose bowel movements, weight loss no dysuria, hematuria or frequency no focal joint pain or swelling no back pain, CVA tenderness or radicular pain no bruising, bleeding or rashes no focal signs of weakness or numbness or altered sensation no complaints of anxiety or depression.. Physical Exam Physical Exam: The patient appeared well nourished and normally developed. Vital signs as documented. Head exam is normocephalic atraumatic Neck is without JVD, thyromegaly, or carotid bruits. Lungs are clear to auscultation, no focal loss of breath sounds Cardiac exam, Rhythm is regular.. KEYSHA Abdominal exam reveals normal bowel sounds, soft non tender, no masses Extremities are nonedematous and both pedal pulses are present Neurologic exam is alert and oriented, no focal loss of strength or sensation Skin is without bruises or rashes Psychologically is without concerns for anxiety or depression.. Results & Data Results & Data ([facility]) Vital Signs (Past 12 Hours) Vital Signs Temp Pulse Pulse Resp BP Pulse Ox Pulse Ox 06/29/21 10:34 89 L 06/29/21 10:07 88 06/29/21 03:15 98.4 F 101 H 18 93/62 L 90 06/29/21 02:13 98.2 F 93 H 109/74 93 06/29/21 01:45 90 06/29/21 00:38 100 H 18 112/67 95 Pulse Ox Pulse Ox 06/29/21 10:34 96 92 06/29/21 10:07 06/29/21 03:15 06/29/21 02:13 06/29/21 01:45 06/29/21 00:38 PG Care Time/CCT Total # of Minutes Spent Total Time Spent with Patient: Total time spent is greater than 50% in coordination of care (as documented) at patient's floor/unit and/or counseling patient: Coding Level of Care Code 67501 Subseq Hosp Care Lvl 2 Diagnoses Pulmonary embolism I26.99 Acute cor pulmonale presence: unspecified Chronicity: acute Pulmonary embolism type: unspecified Elevated troponin R77.8 Depression F32.9 Thrombocytosis D47.3 Peripheral neuropathy G62.9 Peripheral neuropathy type: polyneuropathy, unspecified GERD (gastroesophageal reflux disease) K21.9 Dyspnea R06.00 Dyspnea type: dyspnea on exertion (1) Dyspnea Dyspnea type: dyspnea on exertion Qualified Code(s): R06.00 - Dyspnea, unspecified (2) Peripheral neuropathy Peripheral neuropathy type: polyneuropathy, unspecified Qualified Code(s): G62.9 - Polyneuropathy, unspecified (3) Pulmonary embolism Acute cor pulmonale presence: unspecified Chronicity: acute Pulmonary embolism type: unspecified Qualified Code(s): I26.99 - Other pulmonary embolism without acute cor pulmonale
[2021-06-29 13:45] LABS: Partial Thromboplastin Ratio 2.1
--- NOTE | 2021-06-29 18:22 | XCELERA ---
[id number]
[2021-06-30] MEDS: HEPARIN SODIUM/DEXTROSE 25,000 UNITS/500 ML BAG IV SCH (00:56)
[2021-06-30 06:39] LABS: Partial Thromboplastin Time 53.8 Seconds (21.0-31.0)
--- NOTE | 2021-06-30 06:50 | Electrocardiogram Report ---
Test Reason : Blood Pressure : / mmHG Vent. Rate : 100 BPM Atrial Rate : 100 BPM P-R Int : 136 ms QRS Dur : 078 ms QT Int : 346 ms P-R-T Axes : 058 007 -10 degrees QTc Int : 446 ms Poor data quality, interpretation may be adversely affected Normal sinus rhythm Low voltage QRS Inferior infarct , age undetermined Cannot rule out Anterior infarct (cited on or before 28-JUN-2021) Abnormal ECG When compared with ECG of 20-OCT-2018 07:52, Inferior infarct is now Present Inverted T waves have replaced nonspecific T wave abnormality in Inferior leads T wave inversion now evident in Anterior leads Confirmed by Jose Enrique Gregory ([id number]) on 06/30/2021 6:50:37 AM Referred By: REFERRED SELF Confirmed By:Jose Enrique Gregory
--- NOTE | 2021-06-30 06:52 | Electrocardiogram Report ---
Test Reason : Blood Pressure : / mmHG Vent. Rate : 112 BPM Atrial Rate : 112 BPM P-R Int : 184 ms QRS Dur : 084 ms QT Int : 352 ms P-R-T Axes : 000 -04 -19 degrees QTc Int : 480 ms Sinus tachycardia with occasional Premature ventricular complexes Low voltage QRS Inferior infarct (cited on or before 28-JUN-2021) Cannot rule out Anterior infarct (cited on or before 28-JUN-2021) Abnormal ECG When compared with ECG of 28-JUN-2021 20:55, (unconfirmed) Premature ventricular complexes are now Present Confirmed by Jose Enrique Gregory ([id number]) on 06/30/2021 6:51:57 AM Referred By: REFERRED SELF Confirmed By:Jose Enrique Gregory
[2021-06-30] MEDS: POLYETHYLENE (MIRALAX) 17 GM PACK PO SCH (07:18)
[2021-06-30] MEDS: hydrOXYzine HCl 25 MG TAB PO SCH (07:28)
[2021-06-30] MEDS: VENLAFAXINE HCL XR 75 MG CAPXR PO SCH (07:28)
[2021-06-30] MEDS: POTASSIUM CHLORIDE CRTAB 20 MEQ TABCR PO SCH (07:29)
[2021-06-30] MEDS: TRIAMCINOLONE ACET 0.1% CR 15 GM TUBE TOP SCH (07:29)
[2021-06-30 08:43] LABS: Hematocrit (blood only) 40.4 % (37-47); Hemoglobin 13.2 g/dL (12.0-16.0); Mean Corpuscular Hemoglobin 27.7 pg (25-34); Mean Corpuscular Hgb Conc 32.7 g/dL (32-36); Mean Corpuscular Volume 84.7 fL (80-100); Mean Platelet Volume 10.6 fL (7.4-10.4); Platelet Count 374 K/uL (130-400); RDW Coefficient of Variation 14.8 % (11.5-14.5); Red Blood Count 4.77 M/uL (4.2-5.4); White Blood Count 11.49 K/uL (4.8-10.8)
[2021-06-30 09:06] LABS: BUN Creatinine Ratio 31.4 (10-20); Creatinine Clr Calc Pharmacy 55.9 ml/min; Est GFR (African American) 92.2 ml/min; Est GFR (Non-African American) 79.6 ml/min; Potassium 3.8 mmol/L (3.5-5.1)
[2021-06-30] MEDS ORDERED: ACETAMINOPHEN 500 MG TAB PO SCH (09:30)
[2021-06-30] MEDS ORDERED: APIXABAN 5 MG TABLET PO SCH (10:15)
--- NOTE | 2021-06-30 17:25 | Discharge Summary ---
Date of Service June 30, 2021 Admission HPI Per Admitting Provider 85-year-old female who is a resident of the [facility] with a past medical history of hypertension, dyspnea, chest tightness, depression, PAD, neuropathy, venous stasis presents to the emergency department complaining of worsening dyspnea, diarrhea, and fatigue for the past few months got acutely worse today diagnosed with PE. Patient states she is been in her usual state of health however noticed progressive dyspnea over the past month. She states it acutely worsened earlier today noting it was difficult to rise from a chair. This prompted her evaluation emergency department On presentation the emergency department routine labs were obtained EKG demonstrating poor baseline, normal sinus, occasional PVCs. Routine labs were obtained CBC was notable for a white count of 16.4, platelets of 446, PT/INR was within normal limits, chemistries demonstrated elevated glucose to 148 liver function studies were within normal limits. Imaging studies were performed, CT abdomen pelvis was negative, chest CTA demonstrating large filling defect in the distal right main pulmonary artery pulmonary emboli on the left upper and lower lobes clot burden is moderate additionally evidence of right heart strain, severe coronary calcifications present. Given her multitude of findings evidence of pulmonary embolism on CTA the primary service was consulted for admission. Upon arrival to the patient's room she is resting comfortably in bed noting that she is feeling better. She denies any acute pain. She states she has been tolerating her diet, voiding, stooling. She does note a longstanding history of diarrhea which she says has occurred for greater than 4 years and is largely related to her diet. Principal Diagnosis Pulmonary Embolism elevated troponin-demand ischemia Discharge Exam The patient appeared well Vital signs as documented. Lungs are clear to auscultation and appear unlabored Cardiac exam, Rhythm is regular.. No murmurs, rubs or gallops. Abdominal exam reveals normal bowel sounds, soft non tender, no masses Extremities are nonedematous and both pedal pulses are normal. Neurologic exam is alert and oriented, no focal loss of strength or sensation Skin is without bruises or rashes Psychologically is without concerns for anxiety or depression. Discharge Data Allergies Allergy/AdvReac Type Severity Reaction Status Date / Time lisinopril Allergy Mild Hives Verified 06/29/21 00:29 nitrofurantoin Allergy Mild Hives Verified 06/29/21 00:29 Penicillins Allergy Mild Hives Verified 06/29/21 00:29 Sulfa (Sulfonamide Allergy Mild Hives Verified 06/29/21 00:29 Antibiotics) Consultations 06/28/21 23:01 ED Decision to Admit Stat Ordered Studies 06/28/21 21:38 CT abd pelvis IV con only Urgent CT angio chest PE protocol Urgent Hospital Course (1) Pulmonary embolism: 85-year-old female who is a resident of the [facility] with a past medical history of hypertension, dyspnea, chest tightness, depression, PAD, neuropathy, venous stasis presents to the emergency department complaining of worsening dyspnea, diarrhea, and fatigue for the past few months got acutely worse 06/28/21 diagnosed with saddle PE with moderate clot burden by CT angiogram Dyspnea and chest pain secondary to pulmonary embolism. Patient with a progressively worsening history of dyspnea and chest pain recently underwent nuclear medicine scan 06/24/21 which was normal. -Transition from heparin drip to Eliquis therapy while in the hospital had no issues in the afternoon able ambulate without much dyspnea was discharged home in care of family Elevated troponin is demand ischemia in the setting of PE. troponin trend is flat Recent negative dobutamine stress test, EKG does not demonstrate significant ST elevations Hypertension -blood pressures are lower, will hold hydrocholorthiazide valsartan 160 mg daily at time of discharge will encourage family medicine follow-up to discuss restarting these medications Diarrhea- unrevealing CT abd/pelvis on presentation, does have leukocytosis, and of diarrhea to check stool bio fire Anxiety depression Venlafaxine peripheral neuropathy no current complaints -as needed tramadol Thrombocytosis platelet count now normal follows with [facility] Code Status: Full code (2) Elevated troponin: (3) Depression: (4) Thrombocytosis: (5) Peripheral neuropathy: (6) GERD (gastroesophageal reflux disease): (7) Dyspnea: Total Time Total Time Spent Total Time Spent (In Minutes): It required greater than 30 minutes to prepare this patient for discharge Discharge Plan Discharge Items Patient Disposition: Home - Self-Care Reason For Visit: P/E Discharge Diagnosis: PULMONARY EMBOLISM, BLOOD CLOT IN LUNG HEART IRRITATION FROM BLOOD CLOT Condition on Discharge: Fair Activity: Per Instructions section Activity Comment: SLOWLY INCREASE ACTIVITY, YOU MAYBE SORT OF BREATH FOR ABOUT A MONTH Non-emergency contact: Primary Care Provider Call non-emergency contact if: your symptoms worsen Follow-up/Referrals: Shunk,Kavin R., DO [Primary Care Provider] - 07/13/21 11:30 am Diet: Regular Addtl Attending Provider Instructions: A deep vein thrombosis (DVT) is a blood clot in a large vein deep in a leg, arm, or elsewhere in the body. The clot can separate from the vein, travel to the lungs and cut off blood flow. This is a pulmonary embolism (PE). Due to the lower blood pressure from the blood clot 2 of your blood pressure medicines are held at the time of discharge and will need to be re evaluated by Dr Witt. Medication Instructions: Your condition is typically treated with an anticoagulant. Anticoagulants will thin your blood to help prevent new clots. * You should take her medication exactly as directed. * Never skip a dose. * Never take a double dose. If you miss a dose, take it as soon as you remember. Call your Primary Care doctor if you experience any of the following: * Swelling or Pain in your leg * Sudden, continuous pain deep in a muscle * Pain that worsens when you are active or when you stand still for a long time * Chest Pain * Sudden Shortness of Breath * Rapid or pounding heart beat * Fainting * Dizziness * Cough with blood or bloody sputum * Sweating more than normal * Bruises * Heavy or uncontrolled bleeding * Blood in your urine, stool or vomit * Black or tarry stools Caring for Your Self at Home: * Avoid sitting, standing or lying down for long periods without moving your legs and feet * When traveling by car, stop to get out and move around at least once every 3 hours * On long airplane, train or bus rides, get up and move around when possible * If you can't get up, wiggle your toes and tighten your calves to keep your blood moving Follow Up: It is important for you to keep your follow up appointments with your medical provider. Pending Studies at Discharge: No Stand-Alone Forms: My [employer], Smoking Cessation Medications and DC Order Prescriptions: New Eliquis 5 mg (74 tabs) tablets,dose pack 5 mg PO BID Qty: 74 RF: 4 Continued acetaminophen 500 mg capsule 1,000 mg PO TID PRN (Reason: Pain) RF: 0 potassium chloride 20 mEq tablet extended release 20 meq PO QAM Qty: 90 RF: 3 hydroxyzine HCl 25 mg tablet 25 mg PO DAILY Qty: 90 RF: 3 venlafaxine 225 mg tablet extended release 24hr 225 mg PO DAILY Qty: 90 RF: 3 camphor-menthol 0.2-3.5 % gel 1 appln TOP DAILY PRN (Reason: ..) RF: 0 Premarin 0.625 mg/gram cream 1 applic Vaginal DIRECTED PRN (Reason: DIRECTED) Qty: 30 RF: 1 triamcinolone acetonide 0.1 % Cream 1 applic TOPICAL DAILY RF: 0 tramadol 50 mg tablet 50 mg PO DAILY PRN (Reason: Pain) RF: 0 Discontinued hydrochlorothiazide 12.5 mg tablet 12.5 mg PO DAILY Qty: 90 RF: 3 valsartan 160 mg tablet 160 mg PO DAILY RF: 0 Discharge Orders: Discharge Order (Routine); Ordered 06/30/21 Ordered By: Geovany Mckenna Admission Data Admit Date/Time: 06/29/21 00:28 Attending Provider: Geovany Mckenna Admit Provider: Stan White I. Primary Care Provider: Kavin Witt Other Providers: Salima White Other Interventions: Discharge Summary Assessment (RN) Last Done: 06/30/21 15:43 Coding Level of Care Code D/C DAY MANAGEMENT >30 MINS Diagnoses Pulmonary embolism I26.99 Acute cor pulmonale presence: unspecified Chronicity: acute Pulmonary embolism type: unspecified Elevated troponin R77.8 Depression F32.9 Thrombocytosis D47.3 Peripheral neuropathy G62.9 Peripheral neuropathy type: polyneuropathy, unspecified GERD (gastroesophageal reflux disease) K21.9 Dyspnea R06.00 Dyspnea type: dyspnea on exertion
== END 2021-06-30 17:25 | disposition home or self-care (01) | DRG 176 ==
LOC: ED 20:44 → 2S 06-29 00:28 → INTOOBSV 06-29 00:28 → SUATTDRO 06-29 00:28 → 2S 06-29 01:19
DX: R77.8 Other specified abnormalities of plasma proteins; I26.92 Saddle embolus of pulmonary artery without acute cor pulmonale; Z90.710 Acquired absence of both cervix and uterus; I10 Essential (primary) hypertension; Z88.2 Allergy status to sulfonamides; H91.90 Unspecified hearing loss, unspecified ear; Z79.899 Other long term (current) drug therapy; I24.8 Other forms of acute ischemic heart disease; D47.3 Essential (hemorrhagic) thrombocythemia; M19.90 Unspecified osteoarthritis, unspecified site; Z98.42 Cataract extraction status, left eye; F41.8 Other specified anxiety disorders; K21.9 Gastro-esophageal reflux disease without esophagitis; F32.9 Major depressive disorder, single episode, unspecified; Z88.8 Allergy status to other drugs, medicaments and biological substances; G62.9 Polyneuropathy, unspecified; Z90.09 Acquired absence of other part of head and neck; I73.9 Peripheral vascular disease, unspecified; Z88.1 Allergy status to other antibiotic agents; Z88.0 Allergy status to penicillin; M81.0 Age-related osteoporosis without current pathological fracture; Z90.49 Acquired absence of other specified parts of digestive tract; D75.838 Other thrombocytosis

== ENCOUNTER 2023-03-01 11:43 | Inpatient (IN) ==
--- NOTE | 2023-03-01 12:15 | Emergency Department Note ---
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 This is worsened over the past few days. She also notes ongoing redness to the lower leg despite antibiotics. She has gained 8 pounds in the last 5 days. Patient states that she has had a bit of shortness of breath when laying flat recently. She denies any new dyspnea otherwise. States that she will have chest pain "from time to time" but nothing persistent lately. Patient states she does not follow with cardiology at this time. Does not take any diuretics. Home Medications Medication Instructions Recorded Confirmed Type apixaban 5 mg tablet 5 mg PO BID #180 tabs 06/01/22 03/01/23 Rx cholecalciferol (vitamin D3) 25 25 mcg PO QAM 10/23/22 03/01/23 History mcg (1,000 unit) capsule menthol 5 % topical gel (Biofreeze 1 ea topical DAILY PRN Pain 11/24/22 03/01/23 History (menthol)) silver sulfadiazine 1 % topical 1 applic topical DAILY 11/24/22 03/01/23 History cream escitalopram oxalate 5 mg tablet 5 mg PO PM 12/27/22 03/01/23 History (Lexapro) hydrochlorothiazide 12.5 mg tablet 12.5 mg PO QAM 12/27/22 03/01/23 History venlafaxine 37.5 mg 37.5 mg PO QAM 12/27/22 03/01/23 History capsule,extended release 24 hr (Effexor XR) acetaminophen 500 mg tablet 1,000 mg PO TID PRN PAIN/FEVER 01/15/23 03/01/23 History (Tylenol Extra Strength) triamcinolone acetonide 0.1 % 1 applic topical BID 01/15/23 03/01/23 History topical cream metoprolol succinate 25 mg 25 mg PO DAILY #90 tabs 01/29/23 03/01/23 Rx tablet,extended release 24 hr tramadol 50 mg tablet 50 mg PO PM PRN Pain #30 tabs 01/30/23 03/01/23 Rx potassium chloride 20 mEq 20 meq PO QAM #90 tabs 02/19/23 03/01/23 Rx tablet,extended release doxycycline hyclate 100 mg tablet 100 mg PO BID #20 tabs 02/21/23 03/01/23 Rx Allergies Allergy/AdvReac Type Severity Reaction Status Date / Time lisinopril Allergy Mild Hives Verified 03/01/23 14:30 nitrofurantoin Allergy Mild Hives Verified 03/01/23 14:30 Penicillins Allergy Mild Hives Verified 03/01/23 14:30 Sulfa (Sulfonamide Allergy Mild Hives Verified 03/01/23 14:30 Antibiotics) Past Med/Surg History Medical History (Updated 03/02/23 @ 10:50 by ALEKSEY Frazier) Depression Hypertension Hx of pulmonary embolus Cardiomyopathy Weakness Essential thrombocytopenia Peripheral artery disease (~09/2020) moderate reported on LISA Sixth nerve palsy of left eye H/O nonmelanoma skin cancer Left knee DJD Anxiety Peripheral neuropathy Urinary frequency With cystocele; Surgical intervention had been recommended but deferred due to her 's health concerns GERD (gastroesophageal reflux disease) Osteoporosis Generalized osteoarthritis Hallux rigidus, right foot Hallux rigidus, left foot Hammertoe of left foot Pressure ulcer of toe of right foot, stage 2 Benign paroxysmal positional vertigo Venous stasis ulcer Colitis Hearing deficit Bigeminy DX 1970'S (NO RECENT PROBLEMS) Surgical History History of cholecystectomy S/P colonoscopy Hx of cataract surgery LEFT S/P total abdominal hysterectomy RT OOPHERECTOMY History of tonsillectomy Family History Brother Family history of diabetes mellitus Father Stroke Heart disease Myocardial infarction Mother Leukemia Sister Myocardial infarction Denies family history of Ovarian cancer Prostate cancer Breast cancer Lung cancer Colorectal cancer Cancer Social History Smoking Status: Never smoker Second Hand Exposure: No; Do You Dip or Chew Tobacco: No; Hx Alcohol Use: No Hx Substance Use: No Preferred Language: Eritrean Communication Ability: Effective Visual Impairment: Limited Hearing Ability: Use of Hearing Aid Paint Spray Inspector Required: No Beliefs That Will Affect Care: None marital status: Current Living Situation: Alone Current Living Situation Comment: personal cottage at [facility] current occupational status: retired How many Children do You have: 0 Feels Safe at Home: Yes Safety Concerns: Feels Safe At This Time Childhood Exposure to Second-Hand Smoke: No caffeine: Yes during the past year weight has: remained stable Dental Care, Regularly: Yes Physical Activity Frequency: 1-2 Times per Week Seatbelt Use: always Sunscreen Use: Yes Assistive Devices: Cane and Walker Physical Exam Vital Signs Vital Signs - 24 hr 03/01/23 11:49 03/01/23 12:33 03/01/23 13:00 Temperature 97.7 F Temperature Source Temporal Artery Scan Pulse Rate 133 H 86 Pulse Rate [Apical] 97 H Respiratory Rate 20 20 Blood Pressure 128/72 Blood Pressure [Left Arm] 118/80 Blood Pressure Mean 90 Blood Pressure Mean [Left Arm] 92 Pulse Oximetry 96 100 Oxygen Delivery Method Room Air Room Air Sepsis Recent Fever Within 48 Hours No Sepsis New/Unexplained Change in Mental Status N/A Sepsis Action Taken by Nursing No Action Required 03/01/23 13:10 Temperature Temperature Source Pulse Rate 107 H Pulse Rate [Apical] Respiratory Rate 20 Blood Pressure Blood Pressure [Left Arm] Blood Pressure Mean Blood Pressure Mean [Left Arm] Pulse Oximetry 96 Oxygen Delivery Method Room Air Sepsis Recent Fever Within 48 Hours Sepsis New/Unexplained Change in Mental Status Sepsis Action Taken by Nursing CONSTITUTIONAL: Well developed, well nourished, in no acute distress, pleasant HEAD: Normocephalic, atraumatic. EYES: PERRL, conjunctivae normal, extraocular muscles intact. ENMT: External ears normal. Nose with normal external appearance, no congestion. Oral mucous membranes moist. Oropharynx normal. NECK: Full active range of motion. No JVD. No hepatojugular reflux. RESPIRATORY: Breathing unlabored and symmetric. Lungs clear to auscultation bilaterally. No wheeze, rales, or rhonchi. CARDIOVASCULAR: Irregularly irregular rhythm. Borderline tachycardia. No murmurs rubs or gallops. 3+ pitting edema in bilateral lower extremities, 2+ pitting edema in bilateral thighs. PT pulses 2+ bilaterally. ABDOMEN: Normal bowel sounds. Soft, nontender. MUSCULOSKELETAL: Moves all extremities at all joints without pain or difficulty. SKIN: [place], warm, dry. Skin erythema is noted to the right lower anterior extremity NEUROLOGIC: Awake, alert, oriented. Gaze is conjugate. Face symmetric, speech normal. Moves head and all four extremities spontaneously. Sensation and strength grossly intact. PSYCHIATRIC: Appropriate. Normal affect Course Administered Medications Apixaban (Apixaban 5 Mg Tablet) 5 mg PO BID KETTY Stop: 03/31/23 20:59 Last Admin: 03/02/23 08:51 Dose: 5 mg Documented By: Admin: 03/01/23 21:19 Dose: 5 mg Documented By: FERMIN Escitalopram Oxalate (Escitalopram Oxalate 10 Mg Tab) 5 mg PO PM KETTY Stop: 03/31/23 20:59 Last Admin: 03/01/23 21:23 Dose: 5 mg Documented By: FERMIN Potassium Chloride (Potassium Chloride Crtab 20 Meq Tabcr) 20 meq PO QAM [facility] Stop: 04/01/23 08:59 Last Admin: 03/02/23 08:52 Dose: 20 meq Documented By: ANDREA Silver Sulfadiazine (Silver Sulfadiazine 1% Cr 50 Gm Jar) 1 appln TOP DAILY KETTY Stop: 04/01/23 08:59 Last Admin: 03/02/23 08:52 Dose: 1 appln Documented By: ANDREA Triamcinolone Acetonide (Triamcinolone Acet 0.1% Cr 15 Gm Tube) 1 appln TOP BID KETTY Stop: 03/31/23 20:59 Last Admin: 03/02/23 09:00 Dose: Not Given Documented By: Admin: 03/01/23 22:29 Dose: 1 appln Documented By: FERMIN Venlafaxine HCl (Venlafaxine Hcl Xr 37.5 Mg Capxr) 37.5 mg PO QAM [facility] Stop: 04/01/23 08:59 Last Admin: 03/02/23 08:52 Dose: 37.5 mg Documented By: ANDREA Discontinued Medications Furosemide (Furosemide 40 Mg/4 Ml Vial) 40 mg IV ONE ONE Stop: 03/01/23 13:04 Last Admin: 03/01/23 13:12 Dose: 40 mg Documented By: RAJANI Furosemide (Furosemide 40 Mg/4 Ml Vial) 40 mg IV QAM [facility] Stop: 04/01/23 08:59 Last Admin: 03/02/23 08:51 Dose: 40 mg Documented By: ANDREA Hydrochlorothiazide (Hydrochlorothiazide 25 Mg Tab) 12.5 mg PO QAM [facility] Stop: 04/01/23 08:59 Last Admin: 03/02/23 08:52 Dose: 12.5 mg Documented By: ANDREA Ceftriaxone Sodium 2,000 mg/ (Dextrose) 50 mls @ 100 mls/hr IV ONE ONE; Protocol Stop: 03/01/23 16:29 Last Infusion: 03/01/23 17:35 Dose: Infused Documented By: Admin: 03/01/23 17:05 Dose: 100 mls/hr Documented By: FERMIN Metoprolol Succinate (Metoprolol Succ 25mg Ext Rel Tab) 25 mg PO DAILY [facility] Stop: 04/01/23 08:59 Last Admin: 03/02/23 08:51 Dose: 25 mg Documented By: ANDREA Medical Decision Making Differential Diagnosis Cardiomyopathy, lymphedema, doubt DVT (on Eliquis, recent negative ultrasound) pulmonary hypertension, cardiac ischemia, arrhythmia, electrolyte imbalance, CHF, effusion, pulmonary embolism, among other pathology Medical Records Attestation: I reviewed the patient's medical records. (Reviewed recent primary care notes. Recent negative ultrasound of the right lower extremity. Switched from Keflex to doxycycline for cellulitis of the right leg.) Additional Comments: Patient has not had any recent echocardiograms in the chart since diagnosis of atrial fibrillation. Laboratory Data 03/02/23 04:29 03/02/23 04:29 Lab Results 03/01/23 Range/Units 12:06 WBC 10.03 (4.8-10.8) K/ul RBC 4.78 (4.20-5.40) M/uL Hgb 13.1 (12.0-16.0) g/dl Hct 42.1 (37.0-47.0) % MCV 88.1 (80.0-100.0) fL MCH 27.4 (25.0-34.0) pg MCHC 31.1 L (32.0-36.0) g/dL RDW Std Deviation 51.8 H (36.4-46.3) fL RDW Coeff of Nimesh 16.1 H (11.5-14.5) % Plt Count 576 H (130-400) K/uL MPV 10.0 (9.4-12.4) fL Immature Gran % (Auto) 0.5 % Neut % (Auto) 74.7 % Lymph % (Auto) 16.8 % [place] % (Auto) 7.6 % Eos % (Auto) 0.1 % Baso % (Auto) 0.3 % Neut # (Auto) 7.49 H (1.40-6.50) K/uL Lymph # (Auto) 1.69 (1.20-3.40) K/uL [place] # (Auto) 0.76 H (0.11-0.59) K/uL Eos # (Auto) 0.01 (0.00-0.50) K/uL Baso # (Auto) 0.03 (0.00-0.20) K/uL Immature Gran # (Auto) 0.05 (0.01-0.20) K/uL PT 13.8 H (9.0-12.0) Seconds INR 1.3 H (0.9-1.1) Sodium 139 (136-145) mmol/L Potassium 3.8 (3.5-5.1) mmol/L Chloride 105 (98-107) mmol/L Carbon Dioxide 29 (21-32) mmol/L Anion Gap 5 (3-11) BUN 19 (6-23) mg/dl Creatinine 0.63 (0.6-1.2) mg/dl Est Cr Clr Drug Dosing 61.1 ml/min Est GFR ( Amer) 94.1 ml/min Est GFR (Non-Af Amer) 81.2 ml/min BUN/Creatinine Ratio 30.2 H (10-20) Glucose 105 H (70-99(Fasting)) mg/dl Calcium 9.7 (8.6-10.3) mg/dl Magnesium 1.8 (1.7-2.4) mg/dl Total Bilirubin 0.6 (0.2-1.0) mg/dl AST 18 (13-39) U/L ALT 15 (7-52) U/L Alkaline Phosphatase 77 (34-104) U/L Troponin I High Sens 6.4 (0-14) pg/ml Total Protein 6.6 (6.0-8.3) gm/dl Albumin 3.7 (3.4-5.0) gm/dl Globulin 2.9 (2.5-4.0) gm/dl Albumin/Globulin Ratio 1.3 (0.9-2) ECG Data Attestation: I personally reviewed and interpreted this ECG as follows: (Atrial fibrillation with a rate of 116. No acute ST elevation or evidence of ischemia.) MDM Narrative This is an 87-year-old female on Eliquis for recent PE last year, recent diagnosis of atrial fibrillation, presents to the emergency department with worsening bilateral lower extremity edema and intermittent orthopnea. Recent 8 pound weight gain. Is not following with cardiology. She is currently being treated for cellulitis of the right lower extremity through primary care without any changes, actually she is worsening. Patient does have pitting edema in bilateral lower extremities into the thigh regions. There are some erythematous skin changes of the right lower extremity. She is otherwise in no distress. Heart rate is between [id number] showing atrial fibrillation with RVR. Her lungs are clear. There is no JVD or hepatojugular reflux. An order was placed for continuous cardiac monitoring at time of my evaluation demonstrates atrial fibrillation with a heart rate of 104. Labs: No leukocytosis or significant anemia. Thrombocytosis, baseline at 576. No electrolyte abnormalities. Creatinine clearance 61.1. Troponin negative Chest x-ray negative Patient was given 40 mg of Lasix for the edema. Case was reviewed with ED attending Dr. Beckett. We both agree the patient would benefit from an admission due to concern for cardiomyopathy in the setting of recent atrial fibrillation with progressive edema. I discussed this with the patient she was agreeable with this plan. Case was discussed with [facility] hospitalist group who agrees to admit the patient for fluid management and further cardiac evaluation Impression Bilateral edema of lower extremity, Orthopnea Discharge Plan Visit Data Chief Complaint: Swelling/Edema to Extremity Stated Complaint: LYMPHADEMA, EDEMA FROM KNEE TO HIP ED Provider: Cassandra Beckett ED Midlevel Provider: Nick Alvares Discharge Problem: Bilateral edema of lower extremity, Orthopnea Patient Disposition: Admitted As Inpatient Discharge Instructions Interventions: ED Discharge Assessment Last Done: 03/01/23 17:01
[2023-03-01 12:32] LABS: Basophils # (auto) 0.03 K/uL (0.00-0.20); Basophils % (auto) 0.3 %; Eosinophils # (auto) 0.01 K/uL (0.00-0.50); Eosinophils % (auto) 0.1 %; Hematocrit (blood only) 42.1 % (37.0-47.0); Hemoglobin 13.1 g/dl (12.0-16.0); Immature Granulocytes # (auto) 0.05 K/uL (0.01-0.20); Immature Granulocytes % (auto) 0.5 %; Lymphocytes # (auto) 1.69 K/uL (1.20-3.40); Lymphocytes % (auto) 16.8 %; Mean Corpuscular Hemoglobin 27.4 pg (25.0-34.0); Mean Corpuscular Hgb Conc 31.1 g/dL (32.0-36.0); Mean Corpuscular Volume 88.1 fL (80.0-100.0); Monocytes # (auto) 0.76 K/uL (0.11-0.59); Monocytes % (auto) 7.6 %; Neutrophils # (auto) 7.49 K/uL (1.40-6.50); Neutrophils % (auto) 74.7 %; Platelet Count 576 K/uL (130-400); RDW Coefficient of Variation 16.1 % (11.5-14.5); RDW Standard Deviation 51.8 fL (36.4-46.3); Red Blood Count 4.78 M/uL (4.20-5.40); White Blood Count 10.03 K/ul (4.8-10.8)
[2023-03-01 12:46] LABS: Albumin Globulin Ratio 1.3 (0.9-2); Albumin Level 3.7 gm/dl (3.4-5.0); BUN Creatinine Ratio 30.2 (10-20); Bilirubin,Total 0.6 mg/dl (0.2-1.0); Calcium 9.7 mg/dl (8.6-10.3); Creatinine Clr Calc Pharmacy 61.1 ml/min; Est GFR (African American) 94.1 ml/min; Est GFR (Non-African American) 81.2 ml/min; Globulin 2.9 gm/dl (2.5-4.0); Potassium 3.8 mmol/L (3.5-5.1); Total Protein 6.6 gm/dl (6.0-8.3)
[2023-03-01] MEDS ORDERED: FUROSEMIDE 40 MG/4 ML VIAL IV ONE (13:03)
--- NOTE | 2023-03-01 13:06 | XRay Report ---
XR chest 1V portable CLINICAL HISTORY: leg edema, orthopnea TECHNIQUE: Single frontal radiograph of the chest was obtained. Comparison: Comparison is made to chest radiograph 12/27/2022 FINDINGS: No lines and tubes are seen. Calcified aortic knob is seen. The lungs are clear. No evidence of pleur al effusion or pneumothorax. IMPRESSION: No acute chest disease. ACT 112: Negative or not required by law. Electronically signed by: Lee Kruse M.D. 03/01/2023 1:04 PM
[2023-03-01 13:10] LABS: Troponin I High Sensitivity 6.4 pg/ml (0-14)
--- NOTE | 2023-03-01 13:11 | Emergency Department Note ---
ED Visit Note I was consulted by the Advanced Practice Provider. I saw the patient personally and performed a substantive portion of the visit. This includes aspects of the HPI, MDM, diagnostic interpretations, and disposition/plan. Patient is an 87-year-old female presenting with bilateral lower extremity edema that has been progressively worsening over the last week. She states that in the last 3 to 4 days the swelling has progressed up over her knee and into her bilateral groins. She denies any history of heart failure. She is not on any Lasix or diuretics at home. She states she has gained 8 pounds in the last week. Denies any chest pain or significant shortness of breath. However, she has been starting to prop herself up with a pillow at nighttime secondary to some slight shortness of breath with laying flat. States that her legs hurt with how swollen they are. She has a history of A-fib with RVR and pulmonary emboli and is on Eliquis. She denies any missed doses of the Eliquis I personally interpreted the following studies: - EKG shows atrial fibrillation with rapid ventricular response. Rate 116 bpm. QTc 483. No acute ischemic changes. - Laboratory workup showed normal WBC; stable electrolytes; normal creatinine - CXR negative for pneumonia or overt pulmonary edema, per my interpretation Patient given 40 mg IV lasix in ER. Will plan to admit to hospitalist service for further IV diuresis and echocardiogram. .
--- NOTE | 2023-03-01 14:13 | History & Physical Report ---
Date of Service March 01, 2023 Assessment & Plan (1) Lymphedema: Plan: Worsening SOB and lower extremity edema since Sunday 02/25 Patient takes HCTZ 12.5 mg daily, but is not on any other outpatient diuretics No hx of CHF per patient Last echo on 12/11/2022 revealed LVEF at 45 to 50% BNP ordered, pending Patient reports 8 pound weight gain over the past week Venous Doppler study on 02/19 showed no evidence of DVT; however, patient noted new redness and swelling in the RLE on Monday 02/26; repeat Doppler ordered Continue Lasix 40 mg IV QAM; supplement potassium as needed Monitor electrolytes; keep K>4, Mag>2 A.m. CBC, BMP, mag (2) Atrial fibrillation with rapid ventricular response: Plan: EKG revealed A-fib with RVR at 116 bpm; QTc 483 On Eliquis 5 mg twice daily Continue Eliquis, metoprolol PCU telemetry given the patient IV antihypertensives Continuous telemetry monitoring (3) Cellulitis and abscess of right leg: Plan: Patient has been on Keflex 500 mg p.o. TID and doxycycline 100 mg p.o. 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 She presented for bilateral leg swelling that started on Monday 02/26. She also notes worsening SOB, which is worse when lying flat. She endorses intermittent chest pain (which patient reports has been ongoing on for the past year; patient is not able to state how frequent this intermittent chest pain occurs; no radiation down the left arm or to her back). She uses a cane as an ambulatory assist device at baseline, but has needed a walker over the past week. She has not been taking any medication at home for the chest pain or SOB. She is currently on antibiotics for recent diagnosis of RLE lymphedema with cellulitis; taking Keflex 500 mg p.o. 3 times daily and doxycycline 100 mg twice daily, which was prescribed on 02/21/2023. She endorses 8 pound weight gain in the last 5 days. No history of CHF, per patient. No recent changes in diet. She noticed that her right lower extremity started swelling and became red on Monday 02/26. She took all of her morning medications, including Eliquis which she says she takes consistently. She denies any recent changes in medication. She lives alone, and manages her own medications. No at home oxygen use. No recent sick contacts. Hx of PE 1 year ago (started on Eliquis shortly after). Mild tachycardia at 107 bpm; vitals otherwise stable at time of admission. ED course: Lasix IV 40 mg ROS: Patient endorses headache (ongoing), dizziness, lightheadedness, SOB at rest, intermittent chest pain (ongoing over the past year), intermittent diarrhea, intermittent urinary incontinence, and left knee pain. Fever, chills, night sweats, chest palpitations, abdominal pain, N/V/D, burning with urination, blood in the urine/stool, numbness or tingling in the left arm, or numbness and tingling in the legs B/L. Patient denies Allergies Allergy/AdvReac Type Severity Reaction Status Date / Time lisinopril Allergy Mild Hives Verified 03/01/23 14:30 nitrofurantoin Allergy Mild Hives Verified 03/01/23 14:30 Penicillins Allergy Mild Hives Verified 03/01/23 14:30 Sulfa (Sulfonamide Allergy Mild Hives Verified 03/01/23 14:30 Antibiotics) Home Medications Medication Instructions Recorded Confirmed Type apixaban 5 mg tablet 5 mg PO BID #180 tabs 06/01/22 03/01/23 Rx cholecalciferol (vitamin D3) 25 25 mcg PO QAM 10/23/22 03/01/23 History mcg (1,000 unit) capsule menthol 5 % topical gel (Biofreeze 1 ea topical DAILY PRN Pain 11/24/22 03/01/23 History (menthol)) silver sulfadiazine 1 % topical 1 applic topical DAILY 11/24/22 03/01/23 History cream escitalopram oxalate 5 mg tablet 5 mg PO PM 12/27/22 03/01/23 History (Lexapro) hydrochlorothiazide 12.5 mg tablet 12.5 mg PO QAM 12/27/22 03/01/23 History venlafaxine 37.5 mg 37.5 mg PO QAM 12/27/22 03/01/23 History capsule,extended release 24 hr (Effexor XR) acetaminophen 500 mg tablet 1,000 mg PO TID PRN PAIN/FEVER 01/15/23 03/01/23 History (Tylenol Extra Strength) triamcinolone acetonide 0.1 % 1 applic topical BID 01/15/23 03/01/23 History topical cream metoprolol succinate 25 mg 25 mg PO DAILY #90 tabs 01/29/23 03/01/23 Rx tablet,extended release 24 hr tramadol 50 mg tablet 50 mg PO PM PRN Pain #30 tabs 01/30/23 03/01/23 Rx potassium chloride 20 mEq 20 meq PO QAM #90 tabs 02/19/23 03/01/23 Rx tablet,extended release doxycycline hyclate 100 mg tablet 100 mg PO BID #20 tabs 02/21/23 03/01/23 Rx Past Med/Surg History Medical History (Updated 03/01/23 @ 14:32 by Bryce Zhang PA-C) Depression Hypertension Hx of pulmonary embolus Cardiomyopathy Weakness Essential thrombocytopenia Peripheral artery disease (~09/2020) moderate reported on LISA Sixth nerve palsy of left eye H/O nonmelanoma skin cancer Left knee DJD Anxiety Peripheral neuropathy Urinary frequency With cystocele; Surgical intervention had been recommended but deferred due to her 's health concerns GERD (gastroesophageal reflux disease) Osteoporosis Generalized osteoarthritis Hallux rigidus, right foot Hallux rigidus, left foot Hammertoe of left foot Pressure ulcer of toe of right foot, stage 2 Benign paroxysmal positional vertigo Venous stasis ulcer Colitis Hearing deficit Bigeminy DX 1970'S (NO RECENT PROBLEMS) Surgical History History of cholecystectomy S/P colonoscopy Hx of cataract surgery LEFT S/P total abdominal hysterectomy RT OOPHERECTOMY History of tonsillectomy Family History Brother Family history of diabetes mellitus Father Stroke Heart disease Myocardial infarction Mother Leukemia Sister Myocardial infarction Denies family history of Ovarian cancer Prostate cancer Breast cancer Lung cancer Colorectal cancer Cancer Social History Smoking Status: Never smoker Second Hand Exposure: No; Do You Dip or Chew Tobacco: No; Hx Alcohol Use: No Hx Substance Use: No Preferred Language: Wolof Communication Ability: Effective Visual Impairment: Limited Hearing Ability: Use of Hearing Aid Magneto Electrician Required: No Beliefs That Will Affect Care: None marital status: Current Living Situation: Personal Care Facility current occupational status: retired How many Children do You have: 0 Feels Safe at Home: Yes Childhood Exposure to Second-Hand Smoke: No caffeine: Yes during the past year weight has: remained stable Dental Care, Regularly: Yes Physical Activity Frequency: 1-2 Times per Week Seatbelt Use: always Sunscreen Use: Yes Assistive Devices: Cane, Denture - Upper and Hearing Aid - Right Review of Systems Review of Systems: See HPI above Physical Exam Physical Exam: General: no acute distress; pleasant affect; non-toxic appearing; well- nourished; cooperative; 96% SpO2 on RA HEENT: normocephalic, atraumatic; no scleral icterus; PERRLA w/ EOMs intact; moist mucus membrane; vision and hearing grossly intact Neck: supple; no lymphadenopathy; trachea midline Skin: warm, dry; no cyanosis; no rashes, bruising, lesions, or erythema noted CV: chest wall NTP; RRR; S1/S2 normal; 2/6 systolic ejection murmur auscultated at the second ICS MCL; pulses intact and symmetric at radial, DP, and PT Lungs: no acute respiratory distress; symmetrical chest wall expansion; clear breath sounds across all lung thomson w/o adventitious sounds; no wheezing ABD: Soft, NTP; BS present; no rebound/guarding; no ascites; no distention; negative CVA tenderness MSK: no tics or fasciculations; RLE is erythematous, scaly; LEs grossly swollen with +2 pitting edema extending from the ankles to the upper thighs B/L Neuro: A&Ox3; normal mood and affect; fluent speech; CN2-12 intact; no focal deficits; sensation grossly intact Results & Data Results & Data Vital Signs (Past 12 Hours) Vital Signs Temp Pulse Pulse Resp BP BP Pulse Ox 03/01/23 13:10 107 H 20 96 03/01/23 13:00 86 03/01/23 12:33 97 H 20 118/80 100 03/01/23 11:49 36.5 C 133 H 20 128/72 96 O2 Del Method 03/01/23 13:10 Room Air 03/01/23 13:00 03/01/23 12:33 Room Air 03/01/23 11:49 Room Air Laboratory Results Abnormal lab results 03/01/23 Range/Units 12:06 MCHC 31.1 L (32.0-36.0) g/dL RDW Std Deviation 51.8 H (36.4-46.3) fL RDW Coeff of Nimesh 16.1 H (11.5-14.5) % Plt Count 576 H (130-400) K/uL Neut # (Auto) 7.49 H (1.40-6.50) K/uL Meagher # (Auto) 0.76 H (0.11-0.59) K/uL BUN/Creatinine Ratio 30.2 H (10-20) Glucose 105 H (70-99(Fasting)) mg/dl Diagnostic Findings Chest X-Ray 03/01/23 12:24 XR chest 1V portable CLINICAL HISTORY: leg edema, orthopnea TECHNIQUE: Single frontal radiograph of the chest was obtained. Comparison: Comparison is made to chest radiograph 12/27/2022 FINDINGS: No lines and tubes are seen. Calcified aortic knob is seen. The lungs are clear. No evidence of pleural effusion or pneumothorax. IMPRESSION: No acute chest disease. ACT 112: Negative or not required by law. Electronically signed by: Lee Kruse M.D. 03/01/2023 1:04 PM Code Status & VTE Plan Code Status DNR/DNI VTE Prophylaxis Plan VTE Prophylaxis will be ordered: Yes Supervising Physician Co-Signing Physician Notes Patient seen and examined, chart reviewed, case discussed with TA Zhang PA-C and I agree with the assessment and plan as above except as otherwise noted Labs and images reviewed 87yo F with a PMHx of Afib RVR, HLD, PE on eliquis, who p/w swelling of bilateral lower extremities, orthopnea, and exertional dyspnea without chest pain. Was prescibed doxy/ceflex for suspected cellulitis of RLE. RLE is progressively and asymmetrically warm and red over the last 4 days. No pain. No hx of CHF but +8lbs weight gain over 1 week. BNP pending, last echo with EF 45- 50%, mild rEF. her high sensitive troponin is normal, EKG shows A-fib with rate approximately [address]/T wave changes. Patient is compliant with her Eliquis. She is seen at the bedside, she does have trace bibasilar crackles. Legs are with 2-3+ edema bilaterally, right leg is substantially more swollen than the left and is much more red/warm to the touch compared to left. Suspect cellulitis, CRP added and will place on Rocephin. Her general weight gain in addition to orthopnea is more suspicious for CHF, agree with daily Lasix for diuresis. Strict ins and outs Daily standing weights. She has a history of midrange EF, denies chest pain/pressure. She does not feel short of breath at time of assessment, notes that she has been short of breath laying flat and has had to sleep propped up on a pillow this past week. Agree with assessment above PG Care Time/CCT Total # of Minutes Spent Total Time Spent with Patient: Total time spent is greater than 50% in coordination of care (as documented) at patient's floor/unit and/or counseling patient: C[place] [address] INT INP/OBS CARE 3/75MIN Patient Type Established History Comprehensive Exam Comprehensive Medical Decision Making High Complexity Diagnoses Lymphedema I89.0 Atrial fibrillation with rapid ventricular response I48.91 Cellulitis and abscess of right leg L03.115; L02.415 Left knee DJD M17.12 Anxiety F41.9 Hx of pulmonary embolus Z86.711 Thrombocytosis D47.3 Hypertension I10 Depression F32.9
--- NOTE | 2023-03-01 14:33 | Electrocardiogram Report ---
Test Reason : Blood Pressure : / mmHG Vent. Rate : 116 BPM Atrial Rate : 000 BPM P-R Int : 000 ms QRS Dur : 080 ms QT Int : 348 ms P-R-T Axes : 000 028 -09 degrees QTc Int : 483 ms Atrial fibrillation with rapid ventricular response with premature ventricular or aberrantly conducte d complexes Poor R wave progression, consider anterior ME vs. lead placement vs. LVH Abnormal ECG When compared with ECG of 27-DEC-2022 15:39, No significant change was found Confirmed by Chinmay Mcwilliams ([id number]) on 03/01/2023 2:33:07 PM Referred By: Confirmed By:Chinmay Mcwilliams
[2023-03-01 15:46] LABS: INR 1.3 (0.9-1.1); Prothrombin Time 13.8 Seconds (9.0-12.0)
[2023-03-01] MEDS ORDERED: cefTRIAXone SODIUM 2,000 MG in DEXTROSE 5 % MINI-B 50 ML IV ONE (16:00)
[2023-03-01 16:15] LABS: Appearance Urine Clear (Clear); Bilirubin Urine Negative (Negative); Blood Urine Negative (Negative); Color Urine Yellow; Glucose Urine UA Negative (Negative); Ketones Urine Negative (Negative); Leukocyte Esterase Urine Negative (Negative); Nitrite Urine Negative (Negative); Protein Urine Negative (Negative); Specific Gravity Urine 1.006 (1.000-1.030); Urobilinogen Urine Negative (Negative)
[2023-03-01 16:16] LABS: Magnesium 1.8 mg/dl (1.7-2.4)
--- NOTE | 2023-03-01 16:43 | XCELERA ---
[id number]
[2023-03-01] MEDS ORDERED: traMADol HCL 50 MG TABLET PO PRN (17:02)
[2023-03-01] MEDS ORDERED: ACETAMINOPHEN 325 MG TAB PO PRN (17:02)
--- NOTE | 2023-03-01 17:21 | Ultrasound Report ---
US venous doppler LE RT CLINICAL HISTORY: DVT r/o TECHNIQUE: Right lower extremity real-time compression venous ultrasound with Color Doppler imaging. Utilizing real-time ultrasonic imaging multiple real time high-resolution ultrasonic images with comp ression and noncompression maneuvers of the deep venous system in addition to color doppler imaging w ere performed from the common femoral vein through the proximal calf veins. COMPARISON: Comparison is made to right lower extremity Doppler ultrasound 02/19/2023 FINDINGS/IMPRESSION: Currently there is normal compressibility of the deep venous system from the common femoral vein thro ugh the proximal calf veins. Evaluation of calf vessels is limited due to edema. ACT 112: Negative or not required by law. Electronically signed by: Lee Kruse M.D. 03/01/2023 5:20 PM
[2023-03-01] MEDS: APIXABAN 5 MG TABLET PO SCH (21:19)
[2023-03-01] MEDS: ESCITALOPRAM OXALATE 10 MG TAB PO SCH (21:23)
[2023-03-01] MEDS: TRIAMCINOLONE ACET 0.1% CR 15 GM TUBE TOP SCH (22:29)
[2023-03-02 05:02] LABS: Basophils # (auto) 0.04 K/uL (0.00-0.20); Basophils % (auto) 0.5 %; Eosinophils # (auto) 0.05 K/uL (0.00-0.50); Eosinophils % (auto) 0.7 %; Hematocrit (blood only) 37.2 % (37.0-47.0); Hemoglobin 12.2 g/dl (12.0-16.0); Immature Granulocytes # (auto) 0.02 K/uL (0.01-0.20); Immature Granulocytes % (auto) 0.3 %; Lymphocytes % (auto) 25.5 %; Mean Corpuscular Hemoglobin 27.8 pg (25.0-34.0); Mean Corpuscular Hgb Conc 32.8 g/dL (32.0-36.0); Mean Corpuscular Volume 84.7 fL (80.0-100.0); Mean Platelet Volume 10.1 fL (9.4-12.4); Monocytes # (auto) 0.83 K/uL (0.11-0.59); Monocytes % (auto) 11.2 %; Neutrophils % (auto) 61.8 %; Platelet Count 505 K/uL (130-400); RDW Standard Deviation 49.6 fL (36.4-46.3); Red Blood Count 4.39 M/uL (4.20-5.40); White Blood Count 7.44 K/ul (4.8-10.8)
[2023-03-02 05:15] LABS: BUN Creatinine Ratio 28.8 (10-20); Calcium 9.2 mg/dl (8.6-10.3); Creatinine Clr Calc Pharmacy 65.2 ml/min; Est GFR (African American) 96.2 ml/min; Magnesium 1.6 mg/dl (1.7-2.4); Potassium 3.3 mmol/L (3.5-5.1)
[2023-03-02] MEDS: APIXABAN 5 MG TABLET PO SCH ×2 (08:51→21:23)
[2023-03-02] MEDS: VENLAFAXINE HCL XR 37.5 MG CAPXR PO SCH (08:52)
[2023-03-02] MEDS: POTASSIUM CHLORIDE CRTAB 20 MEQ TABCR PO SCH (08:52)
[2023-03-02] MEDS: SILVER SULFADIAZINE 1% CR 50 GM JAR TOP SCH (08:52)
[2023-03-02] MEDS: TRIAMCINOLONE ACET 0.1% CR 15 GM TUBE TOP SCH ×3 (08:53→21:24)
[2023-03-02] MEDS ORDERED: METOPROLOL SUCC 25MG EXT REL TAB PO SCH (09:00)
[2023-03-02] MEDS ORDERED: FUROSEMIDE 40 MG/4 ML VIAL IV SCH (09:00)
[2023-03-02] MEDS ORDERED: hydroCHLOROthiazide 25 MG TAB PO SCH (09:00)
[2023-03-02] MEDS ORDERED: POTASSIUM CHLORIDE CRTAB 20 MEQ TABCR PO STA (10:02)
[2023-03-02] MEDS ORDERED: METOPROLOL SUCC 25MG EXT REL TAB PO ONE (10:10)
[2023-03-02] MEDS ORDERED: DOXYCYCLINE HYCLATE 100 MG CAP PO SCH (11:00)
[2023-03-02] MEDS: DAPTOmycin 250 MG in SYRINGE 0 ML IV SCH (11:24)
[2023-03-02] MEDS: CEFEPIME 2,000 MG in SYRINGE 0 ML IV SCH ×2 (11:25→18:18)
[2023-03-02] MEDS: MAGNESIUM SULFATE / D5W 1 GM/100 ML BAG IV SCH ×2 (11:26→13:26)
[2023-03-02] MEDS ORDERED: cefTRIAXone SODIUM 2,000 MG in DEXTROSE 5 % MINI-B 50 ML IV SCH (16:00)
--- NOTE | 2023-03-02 17:56 | Hospitalist Progress Note ---
Date of Service March 02, 2023 Assessment & Plan (1) (HFpEF) heart failure with preserved ejection fraction: Plan: With acute on chronic HFpEF Worsening SOB and lower extremity edema since Sunday 02/25 likely secondary to uncontrolled rates with atrial fibrillation Patient takes HCTZ 12.5 mg daily, but is not on any other outpatient diuretics Last echo on 12/11/2022 revealed LVEF at 45 to 50% and repeat echo here with preserved EF 50-55%, mild MR BNP mildly elevated at 203 Patient reports 8 pound weight gain over the past week Venous Doppler study on 02/19 showed no evidence of DVT; however, patient noted new redness and swelling in the RLE on Monday 02/26; repeat Doppler ordered and is negative again Continue Lasix 40 mg IV but increase to twice daily, replace potassium and magnesium Discontinue HCTZ Monitor electrolytes; keep K>4, Mag>2 A.m. CBC, BMP, mag (2) Atrial fibrillation with rapid ventricular response: Plan: Diagnosed a couple of months ago. Was recommended to have metoprolol increased by PCP a couple of weeks ago but patient declined at that time I suspect this is the cause of her acute heart failure as above Increase Toprol-XL to 50 Mg p.o. once daily Monitor on telemetry Continue on Eliquis 5 mg twice daily (3) Cellulitis and abscess of right leg: Plan: With bilateral erythema of chronic venous stasis but right leg is much more red and warm to the touch and painful than previous as per patient Patient has been on Keflex 500 mg p.o. TID and doxycycline 100 mg p.o. 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 Not as short of breath. Telemetry with atrial fibrillation with rates in the 100s Patient cannot recall when she was diagnosed with atrial fibrillation but thinks it is a newer diagnosis. Physical Exam Constitutional: WD/WN, vitals as above Neck: trachea midline, no thyromegaly Respiratory: normal respiratory effort, lungs clear to auscultation Cardiovascular: Rate/Rhythm: + tachycardic and + irregularly irregular Heart Sounds: no murmur Extremities: + edema (1+ pitting edema bilateral legs) Chest (Breasts): Chest: normal inspection of chest Gastrointestinal (Abdomen): normal bowel sounds, soft, nontender, no hepatosplenomegaly Skin: + ulcer (Right medial great toe) and + e rythema (Right greater than left legs) Neurologic: moves all extremities and awake; no focal motor deficits Results & Data Results & Data Vital Signs (Past 12 Hours) Vital Signs Temp Pulse Pulse Resp BP BP Pulse Ox 03/02/23 17:30 37.0 C 80 19 147/66 H 96 03/02/23 15:29 90 20 125/79 97 03/02/23 11:28 110 H 20 133/106 H 95 03/02/23 08:49 104 H 18 135/84 94 03/02/23 07:15 95 H O2 Del Method 03/02/23 17:30 Room Air 03/02/23 15:29 Room Air 03/02/23 11:28 Room Air 03/02/23 08:49 Room Air 03/02/23 07:15 Laboratory Results CBC, BMP, magnesium level reviewed PG Care Time/CCT Total # of Minutes Spent Total Time Spent with Patient: Total time spent is greater than 50% in coordination of care (as documented) at patient's floor/unit and/or counseling patient: Coding Level of Care Code 04851 SUB INP/OBS CARE 3/50MIN Diagnoses (HFpEF) heart failure with preserved ejection fraction I50.30 Atrial fibrillation with rapid ventricular response I48.91 Cellulitis and abscess of right leg L03.115; L02.415 Left knee DJD M17.12 Anxiety F41.9 Hx of pulmonary embolus Z86.711 Thrombocytosis D47.3 Hypertension I10
[2023-03-02] MEDS: FUROSEMIDE 40 MG/4 ML VIAL IV SCH (18:18)
[2023-03-02] MEDS: ESCITALOPRAM OXALATE 10 MG TAB PO SCH (21:23)
[2023-03-03] MEDS: CEFEPIME 2,000 MG in SYRINGE 0 ML IV SCH ×3 (01:30→17:58)
[2023-03-03 06:09] LABS: Basophils # (auto) 0.06 K/uL (0.00-0.20); Basophils % (auto) 0.8 %; Eosinophils # (auto) 0.04 K/uL (0.00-0.50); Eosinophils % (auto) 0.5 %; Hematocrit (blood only) 39.8 % (37.0-47.0); Hemoglobin 12.8 g/dl (12.0-16.0); Immature Granulocytes # (auto) 0.02 K/uL (0.01-0.20); Immature Granulocytes % (auto) 0.3 %; Lymphocytes # (auto) 2.12 K/uL (1.20-3.40); Mean Corpuscular Hemoglobin 27.1 pg (25.0-34.0); Mean Corpuscular Hgb Conc 32.2 g/dL (32.0-36.0); Mean Corpuscular Volume 84.1 fL (80.0-100.0); Mean Platelet Volume 9.7 fL (9.4-12.4); Monocytes # (auto) 1.03 K/uL (0.11-0.59); Monocytes % (auto) 13.1 %; Neutrophils # (auto) 4.57 K/uL (1.40-6.50); Neutrophils % (auto) 58.3 %; Platelet Count 553 K/uL (130-400); RDW Standard Deviation 49.5 fL (36.4-46.3); Red Blood Count 4.73 M/uL (4.20-5.40); White Blood Count 7.84 K/ul (4.8-10.8)
[2023-03-03 06:25] LABS: BUN Creatinine Ratio 32.8 (10-20); Calcium 9.4 mg/dl (8.6-10.3); Creatinine Clr Calc Pharmacy 57.2 ml/min; Est GFR (African American) 95.1 ml/min; Est GFR (Non-African American) 82.1 ml/min; Potassium 3.2 mmol/L (3.5-5.1)
[2023-03-03] MEDS: FUROSEMIDE 40 MG/4 ML VIAL IV SCH ×2 (08:38→16:46)
[2023-03-03] MEDS: VENLAFAXINE HCL XR 37.5 MG CAPXR PO SCH (08:38)
[2023-03-03] MEDS: APIXABAN 5 MG TABLET PO SCH ×2 (08:38→21:52)
[2023-03-03] MEDS: POTASSIUM CHLORIDE CRTAB 20 MEQ TABCR PO SCH (08:38)
[2023-03-03] MEDS: SILVER SULFADIAZINE 1% CR 50 GM JAR TOP SCH (08:39)
[2023-03-03] MEDS: TRIAMCINOLONE ACET 0.1% CR 15 GM TUBE TOP SCH ×2 (08:39→21:53)
[2023-03-03] MEDS ORDERED: METOPROLOL SUCC 50MG EXT REL TAB PO SCH (09:00)
[2023-03-03] MEDS ORDERED: POTASSIUM CHLORIDE CRTAB 20 MEQ TABCR PO STA (09:19)
[2023-03-03] MEDS: DAPTOmycin 250 MG in SYRINGE 0 ML IV SCH (11:05)
[2023-03-03] MEDS ORDERED: POTASSIUM CHLORIDE CRTAB 20 MEQ TABCR PO ONE (15:00)
[2023-03-03] MEDS ORDERED: METOPROLOL SUCC 25MG EXT REL TAB PO STA (15:50)
[2023-03-03] MEDS ORDERED: LOPERAMIDE HCL 2 MG CAP PO PRN (15:51)
[2023-03-03] MEDS ORDERED: LOPERAMIDE HCL 2 MG CAP PO STA (15:51)
--- NOTE | 2023-03-03 15:51 | Hospitalist Progress Note ---
Date of Service March 03, 2023 Assessment & Plan (1) (HFpEF) heart failure with preserved ejection fraction: Plan: With acute on chronic HFpEF Worsening SOB and lower extremity edema since Sunday 02/25 likely secondary to uncontrolled rates with atrial fibrillation ongoing for a couple of months it seems Patient takes HCTZ 12.5 mg daily, but is not on any other outpatient diuretics Last echo on 12/11/2022 revealed LVEF at 45 to 50% and repeat echo here with preserved EF 50-55%, mild MR BNP mildly elevated at 203 Patient reports 8 pound weight gain over the past week prior to admission Venous Doppler study on 02/19 showed no evidence of DVT; however, patient noted new redness and swelling in the RLE on Monday 02/26; repeat Doppler ordered and is negative again Peripheral edema improving here with IV Lasix, but still remains volume overloaded. Weight is down 6 kg if the scale is accurate. Renal function stable Continue Lasix 40 mg IV twice daily, replace potassium Discontinue HCTZ and will likely go home with Lasix 20 mg p.o. daily Monitor electrolytes; keep K>4, Mag>2 A.m. CBC, BMP, mag Needs improved rate control-increase metoprolol again to 75 mg daily (2) Atrial fibrillation with rapid ventricular response: Plan: Diagnosed a couple of months ago. Was recommended to have metoprolol increased by PCP a couple of weeks ago but patient declined at that time I suspect this is the cause of her acute heart failure as above Rates still remain uncontrolled in the 100s to 120s at rest Increase Toprol-XL again to 75 Mg p.o. once daily Monitor on telemetry Continue on Eliquis 5 mg twice daily (3) Cellulitis and abscess of right leg: Plan: With bilateral erythema of chronic venous stasis but right leg is much more red and warm to the touch and painful than previous as per patient Patient has been on Keflex 500 mg p.o. TID and doxycycline 100 mg p.o. BID since 02/21/2023 without improvement Lower extremity edema from heart failure is certainly contributing Erythema and warmth of the right leg is significantly improved today. Remains afebrile, no leukocytosis Was started on Rocephin 2g IV q24h but with history of Pseudomonas and Enterococcus in the past-changed to cefepime and daptomycin on 03/02 Continue to monitor for ongoing improvement (4) Left knee DJD: Plan: 5/10 pain in left knee at time of admission; however, patient notes he can get up to 10/10 Patient ambulates with cane at baseline; walker this past week Endorses generalized LE weakness PT/OT consulted (5) Anxiety: Plan: Continue escitalopram and venlafaxine She reports 4 years of chronic loose stools related to her anxiety since her She declines to have me increase her Lexapro dose any further Add on Imodium for loose stools from anxiety that are chronic for years (6) Hx of pulmonary embolus: Plan: Continue apixaban (7) 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 Patient is anxious to go home. Possible discharge home tomorrow. Discussed all care with her niece, Maricel Cuadra, at the bedside. DNR/DNI Admission and Anticipated Discharge Date Admission Date: March 01, 2023 Subjective Patient is feeling much better today, less swelling in legs. Reports chronic diarrhea for 4 years and is happy to hear that I could give her Imodium which she takes all the time at home. Denies shortness of breath or chest pain. Telemetry with atrial fibrillation with rates still in the 100s to 120s Physical Exam Constitutional: WD/WN, vitals as above Neck: trachea midline, no thyromegaly Respiratory: normal respiratory effort, lungs clear to auscultation Cardiovascular: Rate/Rhythm: + tachycardic and + irregularly irregular Heart Sounds: no murmur Extremities: + edema (1+ pitting edema bilateral legs but improved from yesterday) Chest (Breasts): Chest: normal inspection of chest Gastrointestinal (Abdomen): normal bowel sounds, soft, nontender, no hepatosplenomegaly Skin: + ulcer (Right medial great toe) and + e rythema (Right greater than left legs but much improved from yesterday) Neurologic: moves all extremities and awake; no focal motor deficits Results & Data Results & Data Vital Signs (Past 12 Hours) Vital Signs Temp Pulse Pulse Resp BP BP Pulse Ox 03/03/23 11:53 36.4 C L 95 H 19 122/63 95 03/03/23 07:30 89 03/03/23 07:16 36.7 C 103 H 18 126/79 97 O2 Del Method 03/03/23 11:53 Room Air 03/03/23 07:30 03/03/23 07:16 Room Air Laboratory Results CBC, BMP reviewed PG Care Time/CCT Total # of Minutes Spent Total Time Spent with Patient: Total time spent is greater than 50% in coordination of care (as documented) at patient's floor/unit and/or counseling patient: Coding Level of Care Code 73438 SUB INP/OBS CARE 3/50MIN Diagnoses (HFpEF) heart failure with preserved ejection fraction I50.30 Atrial fibrillation with rapid ventricular response I48.91 Cellulitis and abscess of right leg L03.115; L02.415 Left knee DJD M17.12 Anxiety F41.9 Hx of pulmonary embolus Z86.711 Thrombocytosis D47.3 Hypertension I10
[2023-03-03] MEDS: ESCITALOPRAM OXALATE 10 MG TAB PO SCH (21:53)
[2023-03-04] MEDS: CEFEPIME 2,000 MG in SYRINGE 0 ML IV SCH ×2 (01:38→14:32)
[2023-03-04 07:09] LABS: Basophils # (auto) 0.06 K/uL (0.00-0.20); Basophils % (auto) 0.7 %; Eosinophils # (auto) 0.06 K/uL (0.00-0.50); Eosinophils % (auto) 0.7 %; Hematocrit (blood only) 41.4 % (37.0-47.0); Hemoglobin 13.1 g/dl (12.0-16.0); Immature Granulocytes # (auto) 0.03 K/uL (0.01-0.20); Immature Granulocytes % (auto) 0.4 %; Lymphocytes # (auto) 2.38 K/uL (1.20-3.40); Lymphocytes % (auto) 27.9 %; Mean Corpuscular Hemoglobin 27.5 pg (25.0-34.0); Mean Corpuscular Hgb Conc 31.6 g/dL (32.0-36.0); Mean Corpuscular Volume 86.8 fL (80.0-100.0); Mean Platelet Volume 10.2 fL (9.4-12.4); Monocytes # (auto) 1.24 K/uL (0.11-0.59); Monocytes % (auto) 14.5 %; Neutrophils # (auto) 4.77 K/uL (1.40-6.50); Neutrophils % (auto) 55.8 %; Platelet Count 554 K/uL (130-400); RDW Coefficient of Variation 15.9 % (11.5-14.5); Red Blood Count 4.77 M/uL (4.20-5.40); White Blood Count 8.54 K/ul (4.8-10.8)
[2023-03-04 07:37] LABS: BUN Creatinine Ratio 37.7 (10-20); Calcium 9.4 mg/dl (8.6-10.3); Creatinine Clr Calc Pharmacy 50.5 ml/min; Est GFR (African American) 91.4 ml/min; Est GFR (Non-African American) 78.8 ml/min; Magnesium 1.8 mg/dl (1.7-2.4); Potassium 3.6 mmol/L (3.5-5.1)
[2023-03-04] MEDS ORDERED: METOPROLOL SUCC 25MG EXT REL TAB PO SCH (09:00)
[2023-03-04] MEDS ORDERED: MAGNESIUM SULFATE / D5W 1 GM/100 ML BAG IV ONE (09:11)
[2023-03-04] MEDS ORDERED: POTASSIUM CHLORIDE CRTAB 20 MEQ TABCR PO STA (09:11)
[2023-03-04] MEDS: VENLAFAXINE HCL XR 37.5 MG CAPXR PO SCH (09:15)
[2023-03-04] MEDS: SILVER SULFADIAZINE 1% CR 50 GM JAR TOP SCH (09:15)
[2023-03-04] MEDS: APIXABAN 5 MG TABLET PO SCH ×2 (09:15→20:23)
[2023-03-04] MEDS: TRIAMCINOLONE ACET 0.1% CR 15 GM TUBE TOP SCH ×2 (09:15→20:23)
[2023-03-04] MEDS: FUROSEMIDE 40 MG/4 ML VIAL IV SCH ×2 (09:22→17:06)
[2023-03-04] MEDS: DAPTOmycin 250 MG in SYRINGE 0 ML IV SCH (11:09)
[2023-03-04] MEDS ORDERED: METOPROLOL SUCC 25MG EXT REL TAB PO STA (14:01)
--- NOTE | 2023-03-04 14:09 | Hospitalist Progress Note ---
Date of Service March 04, 2023 Assessment & Plan (1) (HFpEF) heart failure with preserved ejection fraction: Plan: With acute on chronic HFpEF Worsening SOB and lower extremity edema since Sunday 02/25 likely secondary to uncontrolled rates with atrial fibrillation ongoing for a couple of months Patient reports 8 pound weight gain over the past week prior to admission Patient takes HCTZ 12.5 mg daily, but is not on any other outpatient diuretics Last echo on 12/11/2022 revealed LVEF at 45 to 50% and repeat echo here with preserved EF 50-55%, mild MR BNP mildly elevated at 203 Venous Doppler study on 02/19 as an outpt showed no evidence of DVT; repeat Doppler ordered and is negative again here Peripheral edema improving here with IV Lasix, but still remains volume overloaded. Weight is down 7 kg if the scale is accurate. Renal function remains stable Afib rates still not controlled and feels SOB Continue Lasix 40 mg IV twice daily, replace potassium and mag to keep at 4.0 and 2.0 Discontinued HCTZ and will likely go home with Lasix 40 mg p.o. daily Follow BMP, mag Needs improved rate control-increase metoprolol succinate again today to 100 mg daily (2) Atrial fibrillation with rapid ventricular response: Plan: Diagnosed a couple of months ago. Was recommended to have metoprolol increased by PCP a couple of weeks ago but patient declined at that time I suspect this is the cause of her acute heart failure as above Rates still remain uncontrolled in the 100s to 130s with minimal exertion Increase Toprol-XL again to 100 Mg p.o. once daily Monitor on telemetry Continue on Eliquis 5 mg twice daily (3) Cellulitis and abscess of right leg: Plan: With bilateral erythema of chronic venous stasis but right leg is much more red and warm to the touch and painful than previous as per patient Patient failed outpatient Keflex 500 mg p.o. TID and doxycycline 100 mg p.o. BID since 02/21/2023 without improvement Lower extremity edema from heart failure is certainly contributing Erythema and warmth of the right leg is continuing to improve daily Remains afebrile, no leukocytosis She has a history of Pseudomonas, MSSA resistant to tetracycline, and Enterococcus in the past----> continue on cefepime and daptomycin on 03/02 Plan to send home with po Levaquin (to cover for Pseudomonas and Enterococcus) and cefadroxil (allergic to PCN, Sulfa, and failed keflex) for possible MSSA orally on discharge (4) Left knee DJD: Plan: 5/10 pain in left knee at time of admission; however, patient notes he can get up to 10/10 Patient ambulates with cane at baseline; walker this past week Endorses generalized LE weakness PT/OT consulted [facility] [facility] (5) Anxiety: Plan: Continue escitalopram and venlafaxine She reports 4 years of chronic loose stools related to her anxiety since her She declines to have me increase her Lexapro dose any further Added on Imodium for loose stools from anxiety that are chronic for years (6) Hx of pulmonary embolus: Plan: Continue apixaban (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 COuld discharge to home tomorrow if rates better controlled and less SOB DNR/DNI Admission and Anticipated Discharge Date Admission Date: March 01, 2023 Subjective Pt reports feeling very tired today and also more SOB. Tele with atrial fibrillation with rates 90s-130s HR jumps up to 130s with minimal exertion Physical Exam Constitutional: WD/WN, vitals as above Neck: trachea midline, no thyromegaly Respiratory: normal respiratory effort, lungs clear to auscultation Cardiovascular: Rate/Rhythm: + tachycardic and + irregularly irregular Heart Sounds: no murmur Extremities: + edema (1+ pitting edema bilateral legs but improved from yesterday) Chest (Breasts): Chest: normal inspection of chest Gastrointestinal (Abdomen): normal bowel sounds, soft, nontender, no hepatosplenomegaly Skin: + ulcer (Right medial great toe) and + e rythema (Right greater than left legs but much improved from yesterday) Neurologic: moves all extremities and awake; no focal motor deficits Results & Data Results & Data Vital Signs (Past 12 Hours) Vital Signs Temp Pulse Pulse Resp BP Pulse Ox O2 Del Method 03/04/23 12:17 36.4 C L 87 20 111/75 99 Room Air 03/04/23 08:02 99 H 03/04/23 07:32 36.8 C 53 L 18 106/67 95 Room Air 03/04/23 03:34 36.6 C 85 17 118/76 96 Room Air Laboratory Results CBC, BMP, magnesium reviewed PG Care Time/CCT Total # of Minutes Spent Total Time Spent with Patient: Total time spent is greater than 50% in coordination of care (as documented) at patient's floor/unit and/or counseling patient: Coding Level of Care Code 81675 SUB INP/OBS CARE 3/50MIN Diagnoses (HFpEF) heart failure with preserved ejection fraction I50.30 Atrial fibrillation with rapid ventricular response I48.91 Cellulitis and abscess of right leg L03.115; L02.415 Left knee DJD M17.12 Anxiety F41.9 Hx of pulmonary embolus Z86.711 Thrombocytosis D47.3 Hypertension I10
[2023-03-04] MEDS: ESCITALOPRAM OXALATE 10 MG TAB PO SCH (20:23)
[2023-03-05] MEDS: CEFEPIME 2,000 MG in SYRINGE 0 ML IV SCH ×2 (03:25→13:38)
[2023-03-05 06:09] LABS: BUN Creatinine Ratio 42.7 (10-20); Calcium 9.2 mg/dl (8.6-10.3); Creatinine Clr Calc Pharmacy 46.5 ml/min; Est GFR (African American) 83.7 ml/min; Est GFR (Non-African American) 72.2 ml/min; Potassium 3.3 mmol/L (3.5-5.1)
[2023-03-05] MEDS ORDERED: METOPROLOL SUCC 50MG EXT REL TAB PO SCH (09:00)
[2023-03-05] MEDS: APIXABAN 5 MG TABLET PO SCH (09:20)
[2023-03-05] MEDS: VENLAFAXINE HCL XR 37.5 MG CAPXR PO SCH (09:21)
[2023-03-05] MEDS: TRIAMCINOLONE ACET 0.1% CR 15 GM TUBE TOP SCH (09:22)
[2023-03-05] MEDS: SILVER SULFADIAZINE 1% CR 50 GM JAR TOP SCH (09:22)
[2023-03-05] MEDS: FUROSEMIDE 40 MG/4 ML VIAL IV SCH (09:24)
[2023-03-05] MEDS: DAPTOmycin 250 MG in SYRINGE 0 ML IV SCH (09:41)
--- NOTE | 2023-03-05 12:29 | Discharge Summary ---
Date of Service March 05, 2023 Admission HPI Per Admitting Provider Sarah is a pleasant 87-year-old female with PMH of A-fib with RVR, PAD, dyslipidemia, thrombocytosis secondary to JAK2 mutation, HTN, IBS, OA, anxiety, depression, and cellulitis. She presented for bilateral leg swelling that started on Monday 02/26. She also notes worsening SOB, which is worse when lying flat. She endorses intermittent chest pain (which patient reports has been ongoing on for the past year; patient is not able to state how frequent this intermittent chest pain occurs; no radiation down the left arm or to her back). She uses a cane as an ambulatory assist device at baseline, but has needed a walker over the past week. She has not been taking any medication at home for the chest pain or SOB. She is currently on antibiotics for recent diagnosis of RLE lymphedema with cellulitis; taking Keflex 500 mg p.o. 3 times daily and doxycycline 100 mg twice daily, which was prescribed on 02/21/2023. She endorses 8 pound weight gain in the last 5 days. No history of CHF, per patient. No recent changes in diet. She noticed that her right lower extremity started swelling and became red on Monday 02/26. She took all of her morning medications, including Eliquis which she says she takes consistently. She denies any recent changes in medication. She lives alone, and manages her own medications. No at home oxygen use. No recent sick contacts. Hx of PE 1 year ago (started on Eliquis shortly after). Mild tachycardia at 107 bpm; vitals otherwise stable at time of admission. ED course: Lasix IV 40 mg ROS: Patient endorses headache (ongoing), dizziness, lightheadedness, SOB at rest, intermittent chest pain (ongoing over the past year), intermittent diarrhea, intermittent urinary incontinence, and left knee pain. Fever, chills, night sweats, chest palpitations, abdominal pain, N/V/D, burning with urination, blood in the urine/stool, numbness or tingling in the left arm, or numbness and tingling in the legs B/L. Patient denies Principal Diagnosis Acute on chronic diastolic CHF, right lower extremity cellulitis, paroxysmal atrial fibrillation with rapid ventricular rate Discharge Exam General-alert and oriented x3, no fevers, no chills HEENT-head atraumatic and normocephalic, pupils equal and reactive to light, extraocular muscles intact Neck-no lymphadenopathy or thyromegaly, trachea midline Chest-clear to auscultation percussion. No rales wheezing or rhonchi Cardiac-irregular rhythm, controlled rate, normal S1 and S2 Abdomen-normal bowel sounds, nontender, no hepatosplenomegaly Extremities-no cyanosis, clubbing, or edema Neuro-cranial nerves II through XII intact, motor and sensory function within normal limits, strength symmetrical, no focal deficits Psych-normal affect, normal mood Discharge Data Allergies Allergy/AdvReac Type Severity Reaction Status Date / Time lisinopril Allergy Mild Hives Verified 03/01/23 14:30 nitrofurantoin Allergy Mild Hives Verified 03/01/23 14:30 Penicillins Allergy Mild Hives Verified 03/01/23 14:30 Sulfa (Sulfonamide Allergy Mild Hives Verified 03/01/23 14:30 Antibiotics) Consultations 03/01/23 14:41 ED Decision to Admit Stat Ordered Studies 03/01/23 15:04 US venous doppler LE RT Stat Hospital Course (1) (HFpEF) heart failure with preserved ejection fraction: Acute on chronic. Ejection fraction 50 to 55% on current echo. CHF has now resolved with parenteral Lasix therapy. She will continue on oral Lasix at discharge. She is now on room air. (2) Atrial fibrillation with rapid ventricular response: Now rate controlled. Toprol-XL dosage has been uptitrated this admission. Continue Eliquis. Telemetry. (3) Cellulitis and abscess of right leg: Known chronic venous stasis with evidence of right lower extremity cellulitis. Treated with cefepime and daptomycin while hospitalized. She will be discharged home on Levaquin and Duricef. (4) Left knee DJD: Symptomatic treatment (5) Anxiety: Stable. Continue escitalopram and venlafaxine s (6) Hx of pulmonary embolus: Stable. Continue apixaban (7) Thrombocytosis: Stable. Secondary to JAK2 mutation (8) Hypertension: Metoprolol dosage has been uptitrated. Lasix replaces hydrochlorothiazide. Plan Home today, March 05 Total Time Total Time Spent Total Time Spent (In Minutes): 45-minute Discharge Plan Discharge Items Patient Disposition: Home - Self-Care Reason For Visit: RAPID ATRIAL FIBRILLATION, ACUTE ON CHRONIC HFPEF Discharge Diagnosis: Acute on chronic diastolic congestive heart failure, paroxysmal atrial fibrillation with rapid ventricular rate, right lower extremity cellulitis Activity: Resume your previous activity Non-emergency contact: Primary Care Provider and Biophysics Teacher Call non-emergency contact if: you have any medication questions and your symptoms worsen Follow-up/Referrals: Kavin Witt DO [Primary Care Provider] - Diet: Regular and Heart Healthy Addtl Attending Provider Instructions: Lasix replaces hydrochlorothiazide. Continue oral antibiotics including Levaquin and Duricef (cefadroxil) Pending Studies at Discharge: No Stand-Alone Forms: My [facility] [employer], Smoking Cessation Medications and DC Order Prescriptions: New metoprolol succinate 50 mg Tablet Extended Release 24 Hr 100 mg PO DAILY Qty: 30 0RF furosemide [Lasix] 40 mg tablet 40 mg PO DAILY Qty: 30 0RF cefadroxil 500 mg capsule 500 mg PO BID Qty: 20 0RF levofloxacin 500 mg tablet 500 mg PO DAILY 10 Days Qty: 10 0RF Continued apixaban 5 mg tablet 5 mg PO BID Qty: 180 3RF acetaminophen [Tylenol Extra Strength] 500 mg tablet 1,000 mg PO TID PRN (Reason: PAIN/FEVER) Biofreeze (menthol) 5 % gel 1 ea topical DAILY PRN (Reason: Pain) Rx Instructions: 1 application to both knees every morning silver sulfadiazine 1 % cream 1 applic topical DAILY Rx Instructions: apply a 1.5 mm thickness potassium chloride 20 mEq tablet extended release 20 meq PO QAM Qty: 90 3RF tramadol 50 mg tablet 50 mg PO PM PRN (Reason: Pain) Qty: 30 3RF cholecalciferol (vitamin D3) 25 mcg (1,000 unit) capsule 25 mcg PO QAM doxycycline hyclate 100 mg tablet 100 mg PO BID Qty: 20 3RF triamcinolone acetonide 0.1 % cream 1 applic TOPICAL BID Rx Instructions: APPLIES TO RASH ON ANKLES venlafaxine [Effexor XR] 37.5 mg capsule,extended release 24hr 37.5 mg PO QAM escitalopram oxalate [Lexapro] 5 mg tablet 5 mg PO PM Discontinued metoprolol succinate 25 mg tablet extended release 24 hr 25 mg PO DAILY Qty: 90 3RF hydrochlorothiazide 12.5 mg tablet 12.5 mg PO QAM Discharge Orders: Discharge Order- CHF (Routine); Ordered 03/05/23 Ordered By: Dakota Peck Admission Data Admit Date/Time: 03/04/23 14:02 Attending Provider: Dakota Peck Admit Provider: Khari Hernandez Primary Care Provider: Kavin Witt Other Providers: Khari Hernandez Coding Level of Care Code 52486 INP/OBS DISCH >30 MIN Diagnoses (HFpEF) heart failure with preserved ejection fraction I50.30 Atrial fibrillation with rapid ventricular response I48.91 Cellulitis and abscess of right leg L03.115; L02.415 Left knee DJD M17.12 Anxiety F41.9 Hx of pulmonary embolus Z86.711 Thrombocytosis D47.3 Hypertension I10
== END 2023-03-05 15:33 | disposition home health service (06) | DRG 308 ==
LOC: ED 11:43 → EDINP 11:43 → SUATTDRO 15:04 → 4W 03-02 17:01 → SUATTDRO 03-04 14:02

== ENCOUNTER 2023-04-11 23:33 | Inpatient (IN) ==
[2023-04-11] MEDS ORDERED: SODIUM CHLORIDE 0.9% 1,000 ML IV SCH (23:45)
[2023-04-12 00:22] LABS: Appearance Urine Clear (Clear); Bilirubin Urine Negative (Negative); Blood Urine Negative (Negative); Color Urine Yellow; Glucose Urine UA Negative (Negative); Ketones Urine Trace (Negative); Leukocyte Esterase Urine Negative (Negative); Nitrite Urine Negative (Negative); Protein Urine Negative (Negative); Specific Gravity Urine 1.015 (1.000-1.030); Urobilinogen Urine Negative (Negative)
[2023-04-12 00:25] LABS: Basophils # (auto) 0.07 K/uL (0.00-0.20); Basophils % (auto) 0.4 %; Eosinophils # (auto) 0.01 K/uL (0.00-0.50); Eosinophils % (auto) 0.1 %; Hemoglobin 11.7 g/dl (12.0-16.0); Immature Granulocytes # (auto) 0.09 K/uL (0.01-0.20); Immature Granulocytes % (auto) 0.6 %; Lymphocytes # (auto) 1.18 K/uL (1.20-3.40); Lymphocytes % (auto) 7.4 %; Mean Corpuscular Hemoglobin 27.3 pg (25.0-34.0); Mean Corpuscular Hgb Conc 30.8 g/dL (32.0-36.0); Mean Corpuscular Volume 88.8 fL (80.0-100.0); Mean Platelet Volume 10.4 fL (9.4-12.4); Monocytes % (auto) 7.5 %; Neutrophils # (auto) 13.43 K/uL (1.40-6.50); Platelet Count 557 K/uL (130-400); RDW Standard Deviation 51.8 fL (36.4-46.3); Red Blood Count 4.28 M/uL (4.20-5.40); White Blood Count 15.98 K/ul (4.8-10.8)
[2023-04-12 00:42] LABS: Albumin Globulin Ratio 1.4 (0.9-2); Albumin Level 3.7 gm/dl (3.4-5.0); BUN Creatinine Ratio 31.7 (10-20); Bilirubin,Total 0.7 mg/dl (0.2-1.0); Calcium 9.5 mg/dl (8.6-10.3); Creatinine Clr Calc Pharmacy 64.2 ml/min; Est GFR (African American) 94.1 ml/min; Est GFR (Non-African American) 81.2 ml/min; Globulin 2.7 gm/dl (2.5-4.0); Total Protein 6.4 gm/dl (6.0-8.3)
--- OUTSIDE RECORDS SUMMARY | 2023-04-12 00:43 | External Medical Summary ---
Author Name UNSPECIFIED Address Unknown Organization [facility] History of Encounters Reason for Assessment: Discharge from [facility] Inpatient Facility where the patient been admitted: No inpatient facility admission Discharge Disposition: Patient remained in the community (without formal assistive services) Functional Assessment Bowel Incontinence Frequency: Very rarel y or never has bowel incontinence When Anxious (Reported or Observed): Les s often than daily Cognitive and Behavioral and Psychiatric Symptoms: None Current Ability: Bathing: With the use o f devices, is able to bathe self in shower or tub independently, including getting in and out of the tub/shower. Current Ability: Ambulation: With the us e of a one-handed device (e.g. cane, single crutch, bronson-walker), able to independently walk on even and uneven surfaces and negotiate stairs with or without railings. Current: Management Of Oral Medications: Able to take medication(s) at the correct times if: (a) individual dosages are prepared in advance by another person; OR (b) another person develops a drug diary or chart
[2023-04-12 00:56] LABS: INR 1.2 (0.9-1.1); Partial Thromboplastin Time 27 Seconds (21-31)
[2023-04-12] MEDS ORDERED: ACETAMINOPHEN 1,000 MG/100 ML VIAL IV STA (01:07)
[2023-04-12] MEDS ORDERED: fentaNYL citrate PF 100 MCG/2 ML VIAL IV STA (01:07)
[2023-04-12] MEDS ORDERED: fentaNYL citrate PF 100 MCG/2 ML VIAL IV PRN (01:07)
--- NOTE | 2023-04-12 01:10 | CT Scan Report ---
Exam(s): CT HEAD Without Contrast EXAM: CT Head Without Intravenous Contrast CLINICAL HISTORY: Reason for exam: fall, blood thinners. TECHNIQUE: Axial computed tomography images of the head/brain without intravenous contrast. CTDI is 35.51 mGy and DLP is 547.75 mGy-cm. Automated exposure control was utilized for the study. A dose lowering technique was utilized adhering to the principles of ALARA. COMPARISON: No relevant prior studies available. FINDINGS: No acute intracranial hemorrhage. No midline shift or mass effect. The territorial alegria-white matter differentiation is maintained throughout. Age-related cerebral volume loss. Periventricular and subcortical white matter hypoattenuation, consistent with chronic microangiopathy. The visualized orbits appear grossly unremarkable. The calvarium is intact. The visualized paranasal sinuses and mastoid air cells are grossly clear. IMPRESSION: No acute intracranial hemorrhage, midline shift, or mass effect. Electronically signed by: Ga Coker MD 04/12/23 01:10 AM
--- NOTE | 2023-04-12 01:20 | History & Physical Report ---
Date of Service April 12, 2023 Assessment & Plan (1) Hip fracture: Plan: 87yo female presenting from home after a ground level fall resulting in right hip fracture. Patient with significant discomfort, NV intact -Admit to medical -Pain control -NPO for possible OR Patient anticoagulated on Eliquis. Last taken 04/11/23 AM Patient with atrial fibrillation - poorly controlled on beta chris therapy. HR typically low 100's. She is to have cardioversion performed by Dr. Gregory on 04/13/23 (2) Atrial fibrillation with rapid ventricular response: Plan: Chronic. Still with mild tachycardia, HR of 102. Patient overall with poorly controlled HR - is to have a cardioversion performed on 04/13/23. Last Eliquis dose 04/11/23 AM -Continue to hold Eliquis for now -Continue Metoprolol -Consider Cardiology consultation re: possible inpatient cardioversion. Non- emergent at this time. (3) (HFpEF) heart failure with preserved ejection fraction: Plan: Well compensated. Last echo 03/01/23 with EF of 50-55%, no regional WMA -Continue Metoprolol History of Present Illness Chief Complaint: fall, right hip fracture Primary Care Provider: Kavin Witt DO Sarah Michel is a pleasant 87yo female with history of AF on Eliquis anticoagulation, PAD, Depression and GERD presenting after a fall at home. Patient was coming out of her closet and was trying to reach for her bed when she lost her balance and fell onto her right hip. She denies head trauma or loss of consciousness. Severe pain, 8/10 at present. No additional complaints at this time Allergies Allergy/AdvReac Type Severity Reaction Status Date / Time lisinopril Allergy Mild Hives Verified 04/10/23 09:49 nitrofurantoin Allergy Mild Hives Verified 04/10/23 09:49 Penicillins Allergy Mild Hives Verified 04/10/23 09:49 Sulfa (Sulfonamide Allergy Mild Hives Verified 04/10/23 09:49 Antibiotics) latex Allergy Itching Verified 04/10/23 10:57 Home Medications Medication Instructions Recorded Confirmed Type cholecalciferol (vitamin D3) 25 25 mcg PO QAM 10/23/22 04/12/23 History mcg (1,000 unit) capsule menthol 5 % topical gel (Biofreeze 1 ea topical DAILY PRN Pain 11/24/22 04/12/23 History (menthol)) silver sulfadiazine 1 % topical 1 applic topical DAILY 11/24/22 04/12/23 History cream escitalopram oxalate 5 mg tablet 5 mg PO QPM 12/27/22 04/12/23 History (Lexapro) venlafaxine 37.5 mg 37.5 mg PO QAM 12/27/22 04/12/23 History capsule,extended release 24 hr (Effexor XR) acetaminophen 500 mg tablet 1,000 mg PO TID PRN PAIN/FEVER 01/15/23 04/12/23 History (Tylenol Extra Strength) triamcinolone acetonide 0.1 % 1 applic topical BID PRN flare ups 01/15/23 04/12/23 History topical cream potassium chloride 20 mEq 20 meq PO QAM #90 tabs 02/19/23 04/12/23 Rx tablet,extended release apixaban 5 mg tablet 5 mg PO BID #180 tabs 04/09/23 04/12/23 Rx furosemide 40 mg tablet (Lasix) 40 mg PO QAM 04/10/23 04/12/23 History metoprolol succinate 50 mg 100 mg PO QAM 04/10/23 04/12/23 History tablet,extended release 24 hr tramadol 50 mg tablet 50 mg PO QAM PRN Pain 04/10/23 04/12/23 History Past Med/Surg History Medical History History of COVID-19 12/2022; beginning 02/2023, home test, not hosp; moderate symptoms>all resolved Atrial fibrillation (HFpEF) heart failure with preserved ejection fraction f/u dr. 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 H/O nonmelanoma skin cancer removed Left knee DJD Anxiety Peripheral neuropathy Urinary frequency With cystocele; Surgical intervention had been recommended but deferred due to her 's health concerns Depression GERD (gastroesophageal reflux disease) Osteoporosis Generalized osteoarthritis Hallux rigidus, right foot Hallux rigidus, left foot Hammertoe of left foot Pressure ulcer of toe of right foot, stage 2 "has had since 2014" Benign paroxysmal positional vertigo Venous stasis ulcer Colitis hx Hearing deficit hearing aid lt ear Bigeminy dx 1970's>no current issues Hypertension Surgical History History of cholecystectomy S/P colonoscopy Hx of cataract surgery lt/rt S/P total abdominal hysterectomy w/rt oophorectomy History of tonsillectomy Family History Brother Family history of diabetes mellitus Father Stroke Heart disease Myocardial infarction Mother Leukemia Sister Myocardial infarction Denies family history of Ovarian cancer Prostate cancer Breast cancer Lung cancer Colorectal cancer Cancer Social History Smoking Status: Never smoker Second Hand Exposure: Yes (hx); Do You Dip or Chew Tobacco: No; Hx Alcohol Use: No Hx Substance Use: No Preferred Language: Faroese Communication Ability: Effective Visual Impairment: Limited Hearing Ability: Use of Hearing Aid Fan Balancer Required: No Beliefs That Will Affect Care: None marital status: Current Living Situation: Alone Current Living Situation Comment: personal cottage at [facility] current occupational status: retired How many Children do You have: 0 Feels Safe at Home: Yes Childhood Exposure to Second-Hand Smoke: No caffeine: Yes during the past year weight has: remained stable Dental Care, Regularly: Yes Physical Activity Frequency: 1-2 Times per Week Seatbelt Use: always Sunscreen Use: Yes Assistive Devices: Glasses and Hearing Aid - Left Review of Systems Review of Systems: All systems reviewed & are unremarkable except as noted in HPI & below Physical Exam Physical Exam: General: patient resting comfortably, NAD, non-toxic in appearance, AA&O x 4 Skin: warm, dry, intact, no rashes or lesions HEENT: NC/AT, PERRL, EOMI, anicteric sclera, conjunctiva without injection, external ear normal to inspection and nontender, nares patent, moist mucus membranes, dentition intact, no oropharyngeal lesions, neck supple, trachea midline, no LAD, no thyromegaly, no JVD Heart: +S1/S2, irregularly irregular, tachycardic no m/r/g Lungs: equal air entry bilaterally, no rales/rhonchi/wheezes Abd: +BS, soft, NT/ND, no masses/organomegaly/ascites Ext: warm, 2+ pulses in UE/LE bilaterally, no clubbing/cyanosis or edema Neuro: nonfocal, patient AA&O x 4, speech intact, no facial droop, moving all extremities on command with equal strength 5/5 Results & Data Results & Data Vital Signs (Past 12 Hours) Vital Signs Temp Pulse Resp BP Pulse Ox O2 Del Method 04/11/23 23:51 108 H 04/11/23 23:42 36.6 C 98 H 21 133/106 H 92 Room Air Laboratory Results Laboratory Results WBC 15.98 K/ul (4.8-10.8) H 04/11/23 23:43 RBC 4.28 M/uL (4.20-5.40) 04/11/23 23:43 Hgb 11.7 g/dl (12.0-16.0) L 04/11/23 23:43 Hct 38.0 % (37.0-47.0) 04/11/23 23:43 MCV 88.8 fL (80.0-100.0) 04/11/23 23:43 MCH 27.3 pg (25.0-34.0) 04/11/23 23:43 MCHC 30.8 g/dL (32.0-36.0) L 04/11/23 23:43 RDW Std Deviation 51.8 fL (36.4-46.3) H 04/11/23 23:43 RDW Coeff of Nimesh 16.0 % (11.5-14.5) H 04/11/23 23:43 Plt Count 557 K/uL (130-400) H 04/11/23 23:43 MPV 10.4 fL (9.4-12.4) 04/11/23 23:43 Immature Gran % (Auto) 0.6 % 04/11/23 23:43 Neut % (Auto) 84.0 % 04/11/23 23:43 Lymph % (Auto) 7.4 % 04/11/23 23:43 [place] % (Auto) 7.5 % 04/11/23 23:43 Eos % (Auto) 0.1 % 04/11/23 23:43 Baso % (Auto) 0.4 % 04/11/23 23:43 Neut # (Auto) 13.43 K/uL (1.40-6.50) H 04/11/23 23:43 Lymph # (Auto) 1.18 K/uL (1.20-3.40) L 04/11/23 23:43 [place] # (Auto) 1.20 K/uL (0.11-0.59) H 04/11/23 23:43 Eos # (Auto) 0.01 K/uL (0.00-0.50) 04/11/23 23:43 Baso # (Auto) 0.07 K/uL (0.00-0.20) 04/11/23 23:43 Immature Gran # (Auto) 0.09 K/uL (0.01-0.20) 04/11/23 23:43 PT 13.0 Seconds (9.0-12.0) H 04/11/23 23:43 INR 1.2 (0.9-1.1) H 04/11/23 23:43 APTT 27 Seconds (21-31) 04/11/23 23:43 PTT Ratio 1.0 04/11/23 23:43 Sodium 140 mmol/L (136-145) 04/11/23 23:43 Potassium 4.0 mmol/L (3.5-5.1) 04/11/23 23:43 Chloride 106 mmol/L (98-107) 04/11/23 23:43 Carbon Dioxide 27 mmol/L (21-32) 04/11/23 23:43 Anion Gap 7 (3-11) 04/11/23 23:43 BUN 20 mg/dl (6-23) 04/11/23 23:43 Creatinine 0.63 mg/dl (0.6-1.2) 04/11/23 23:43 Est Cr Clr Drug Dosing 64.2 ml/min 04/11/23 23:43 Est GFR ( Amer) 94.1 ml/min 04/11/23 23:43 Est GFR (Non-Af Amer) 81.2 ml/min 04/11/23 23:43 BUN/Creatinine Ratio 31.7 (10-20) H 04/11/23 23:43 Glucose 131 mg/dl (70-99(Fasting)) H 04/11/23 23:43 Calcium 9.5 mg/dl (8.6-10.3) 04/11/23 23:43 Total Bilirubin 0.7 mg/dl (0.2-1.0) 04/11/23 23:43 AST 24 U/L (13-39) 04/11/23 23:43 ALT 16 U/L (7-52) 04/11/23 23:43 Alkaline Phosphatase 91 U/L (34-104) 04/11/23 23:43 Total Protein 6.4 gm/dl (6.0-8.3) 04/11/23 23:43 Albumin 3.7 gm/dl (3.4-5.0) 04/11/23 23:43 Globulin 2.7 gm/dl (2.5-4.0) 04/11/23 23:43 Albumin/Globulin Ratio 1.4 (0.9-2) 04/11/23 23:43 Urine Color Yellow 04/12/23 00:13 Urine Appearance Clear (Clear) 04/12/23 00:13 Urine pH 5.0 (4.5-7.5) 04/12/23 00:13 Ur Specific [place] 1.015 (1.000-1.030) 04/12/23 00:13 Urine Protein Negative (Negative) 04/12/23 00:13 Urine Glucose (UA) Negative (Negative) 04/12/23 00:13 Urine Ketones Trace (Negative) H 04/12/23 00:13 Urine Blood Negative (Negative) 04/12/23 00:13 Urine Nitrite Negative (Negative) 04/12/23 00:13 Urine Bilirubin Negative (Negative) 04/12/23 00:13 Urine Urobilinogen Negative (Negative) 04/12/23 00:13 Ur Leukocyte Esterase Negative (Negative) 04/12/23 00:[address] 04/11/23 23:53 Exam(s): CT HEAD Without Contrast EXAM: CT Head Without Intravenous Contrast CLINICAL HISTORY: Reason for exam: fall, blood thinners. TECHNIQUE: Axial computed tomography images of the head/brain without intravenous contrast. CTDI is 35.51 mGy and DLP is 547.75 mGy-cm. Automated exposure control was utilized for the study. A dose lowering technique was utilized adhering to the principles of ALARA. COMPARISON: No relevant prior studies available. FINDINGS: No acute intracranial hemorrhage. No midline shift or mass effect. The territorial alegria-white matter differentiation is maintained throughout. Age-related cerebral volume loss. Periventricular and subcortical white matter hypoattenuation, consistent with chronic microangiopathy. The visualized orbits appear grossly unremarkable. The calvarium is intact. The visualized paranasal sinuses and mastoid air cells are grossly clear. IMPRESSION: No acute intracranial hemorrhage, midline shift, or mass effect. Electronically signed by: Ga Coker MD 04/12/23 01:10 AM PG Care Time/CCT Total # of Minutes Spent Total Time Spent with Patient: Total time spent is greater than 50% in coordination of care (as documented) at patient's floor/unit and/or counseling patient: Coding Level of Care Code 77263 INT INP/OBS CARE 2/55MIN Diagnoses Hip fracture S72.001A Encounter type: initial encounter Fracture type: closed Laterality: right Atrial fibrillation with rapid ventricular response I48.91 (HFpEF) heart failure with preserved ejection fraction I50.30 (1) Hip fracture Encounter type: initial encounter Fracture type: closed Laterality: right Qualified Code(s): S72.001A - Fracture of unspecified part of neck of right femur, initial encounter for closed fracture
--- NOTE | 2023-04-12 02:13 | Emergency Department Note ---
Impression & Plan Hip fracture ED Provider Note CHIEF COMPLAINT: Fall, right hip pain HISTORY OF PRESENT ILLNESS: This 87-year-old female patient with past medical history of atrial fibrillation on Eliquis, heart failure, peripheral arterial disease, osteoarthritis, presents to the emergency department with complaints of right hip pain. The patient states she was reaching for her bedpost when she missed it and lost her balance, falling to the ground. Patient denies hitting her head. She denies any recent fevers, chest pain, shortness of breath, vomiting or diarrhea. Patient's niece mentions that she is scheduled to have a cardioversion with Dr. Gregory in 2 days. REVIEW OF SYSTEMS: A review of systems was performed with positives and pertinent negatives listed in the history of present illness. 10 systems were reviewed and are otherwise negative. ALLERGIES: see below MEDICATIONS: see below PMH: see below SOCIAL HISTORY: see below DDx: Fracture, dislocation, neurovascular compromise, compartment syndrome, soft tissue injury, closed head injury, intracranial hemorrhage as well as other pathologies. PHYSICAL EXAM: Vital signs reviewed. General: Well-appearing 87-year-old female in no significant distress. HEENT: No scleral icterus, PERRLA, neck supple. Atraumatic. Cardiovascular: Irregular irregular and tachycardic Pulmonary: Clear to auscultation bilaterally, normal work of breathing. Abdomen: Soft, nontender, nondistended, positive bowel sounds. Musculoskeletal: Atraumatic, no peripheral edema. Pain to palpation over the right hip, no pain with pelvic rocking. Pain with range of motion of the hip neurovascularly intact distally. Neurologic: Patient awake alert and oriented x 3, speech is clear Skin: Warm, dry, no rash EMERGENCY DEPARTMENT COURSE/MDM: this patient was evaluated and appeared to be in no significant distress. IV access was obtained and laboratory work was drawn. The patient was placed on the groundwater monitoring technician. She was medicated with IV acetaminophen, fentanyl and Zofran. IV normal saline solution was hung. X- ray reveals evidence of a right hip fracture. CT imaging of the head was performed and is negative for acute intracranial pathology. Patient and niece were informed of the findings at the bedside. The hospitalist, Dr. White was consulted as agreed to evaluate the patient for admission and further management. Patient has expressed understanding of the plan and agrees. MONITORING: An order for cardiac monitoring was placed and the patient is noted to be in a rapid atrial fibrillation 110 beats per minute. RADIOLOGY: Head CT to my review and radiology's over read reveals no evidence of acute intracranial hemorrhage. Chest x-ray to my interpretation reveals no evidence of focal lung consolidation or failure. Otherwise defer to radiology's overread Right hip x-ray to my interpretation reveals an impaction fracture otherwise defer to radiology's overread EKG: To my interpretation reveals atrial fibrillation at 117 bpm. Poor quality baseline for interpretation. Normal ST segments. No PVC, PAC. QTc is 560 DISPOSITION: Admission Past Med/Surg History Medical History (Updated 04/13/23 @ 10:47 by Stefanie Mcintyre MD) Anxiety Hypertension Chronic diarrhea Hx of pulmonary embolus 2021, brought to [place] ER w/SOB>unknown cause History of COVID-19 12/2022; beginning 02/2023, home test, not hosp; moderate symptoms>all resolved Atrial fibrillation (HFpEF) heart failure with preserved ejection fraction f/u dr. 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 H/O nonmelanoma skin cancer removed Left knee DJD Peripheral neuropathy Urinary frequency With cystocele; Surgical intervention had been recommended but deferred due to her 's health concerns Depression GERD (gastroesophageal reflux disease) Osteoporosis Generalized osteoarthritis Hallux rigidus, right foot Hallux rigidus, left foot Hammertoe of left foot Pressure ulcer of toe of right foot, stage 2 "has had since 2014" Benign paroxysmal positional vertigo Venous stasis ulcer Colitis hx Hearing deficit hearing aid lt ear Bigeminy dx s>no current issues Surgical History History of cholecystectomy S/P colonoscopy Hx of cataract surgery lt/rt S/P total abdominal hysterectomy w/rt oophorectomy History of tonsillectomy Family History Brother Family history of diabetes mellitus Father Stroke Heart disease Myocardial infarction Mother Leukemia Sister Myocardial infarction Denies family history of Ovarian cancer Prostate cancer Breast cancer Lung cancer Colorectal cancer Cancer Social History Smoking Status: Never smoker Second Hand Exposure: Yes (hx); Do You Dip or Chew Tobacco: No; Hx Alcohol Use: No Hx Substance Use: No Preferred Language: Indonesian Communication Ability: Effective Visual Impairment: Limited Hearing Ability: Use of Hearing Aid Gauge Operator Required: No Beliefs That Will Affect Care: None marital status: Current Living Situation: Alone Current Living Situation Comment: From [facility] [employer] current occupational status: retired How many Children do You have: 0 Other Information That Helps Us Care for You: No Feels Safe at Home: Yes Safety Concerns: Feels Safe At This Time Childhood Exposure to Second-Hand Smoke: No caffeine: Yes during the past year weight has: remained stable Dental Care, Regularly: Yes Physical Activity Frequency: 1-2 Times per Week Seatbelt Use: always Sunscreen Use: Yes Assistive Devices: Cane and Walker Allergies Allergies Allergy/AdvReac Type Severity Reaction Status Date / Time lisinopril Allergy Mild Hives Verified 04/10/23 09:49 nitrofurantoin Allergy Mild Hives Verified 04/10/23 09:49 Penicillins Allergy Mild Hives Verified 04/10/23 09:49 Sulfa (Sulfonamide Allergy Mild Hives Verified 04/10/23 09:49 Antibiotics) latex Allergy Itching Verified 04/10/23 10:57 Home Meds Home Medications Medication Instructions Recorded Confirmed cholecalciferol (vitamin D3) 25 25 mcg PO QAM 10/23/22 04/12/23 mcg (1,000 unit) capsule menthol 5 % topical gel (Biofreeze 1 ea topical DAILY PRN Pain 11/24/22 04/12/23 (menthol)) silver sulfadiazine 1 % topical 1 applic topical DAILY 11/24/22 04/12/23 cream escitalopram oxalate 5 mg tablet 5 mg PO QPM 12/27/22 04/12/23 (Lexapro) venlafaxine 37.5 mg 37.5 mg PO QAM 12/27/22 04/12/23 capsule,extended release 24 hr (Effexor XR) acetaminophen 500 mg tablet 1,000 mg PO TID PRN PAIN/FEVER 01/15/23 04/12/23 (Tylenol Extra Strength) triamcinolone acetonide 0.1 % 1 applic topical BID PRN flare ups 01/15/23 04/12/23 topical cream furosemide 40 mg tablet (Lasix) 40 mg PO QAM 04/10/23 04/12/23 metoprolol succinate 50 mg 100 mg PO QAM 04/10/23 04/12/23 tablet,extended release 24 hr tramadol 50 mg tablet 50 mg PO QAM PRN Pain 04/10/23 04/12/23 Previous Rx's Medication Instructions Recorded potassium chloride 20 mEq 20 meq PO QAM #90 tabs 02/19/23 tablet,extended release apixaban 5 mg tablet 5 mg PO BID #180 tabs 04/09/23 Results & Data (ED) Vital Signs Vital Signs - 24 hr 04/11/23 23:42 04/11/23 23:51 04/11/23 23:52 Temperature 36.6 C Temperature Source Oral Pulse Rate 98 H 108 H 115 H Pulse Rate from SpO2 Sensor 115 H Respiratory Rate 21 26 H Respiratory Depth Normal Blood Pressure 133/106 H Blood Pressure Mean 115 Pulse Oximetry 92 93 Oxygen Delivery Method Room Air Sepsis Recent Fever Within 48 Hours No Sepsis New/Unexplained Change in Mental Status No Sepsis Action Taken by Nursing No Action Required 04/12/23 00:00 04/12/23 00:01 04/12/23 00:01 Temperature Temperature Source Pulse Rate 109 H 109 H 112 H Pulse Rate from SpO2 Sensor 113 H 109 H Respiratory Rate 35 H 26 H 31 H Respiratory Depth Blood Pressure 151/93 H Blood Pressure Mean 109 Pulse Oximetry 94 93 93 Oxygen Delivery Method Sepsis Recent Fever Within 48 Hours Sepsis New/Unexplained Change in Mental Status Sepsis Action Taken by Nursing 04/12/23 00:10 04/12/23 00:20 04/12/23 00:30 Temperature Temperature Source Pulse Rate 111 H 101 H Pulse Rate from SpO2 Sensor 103 H 112 H Respiratory Rate 23 21 Respiratory Depth Blood Pressure 147/91 H Blood Pressure Mean 123 Pulse Oximetry 94 91 Oxygen Delivery Method Sepsis Recent Fever Within 48 Hours Sepsis New/Unexplained Change in Mental Status Sepsis Action Taken by Nursing 04/12/23 00:30 04/12/23 00:40 04/12/23 01:00 Temperature Temperature Source Pulse Rate 101 H 109 H 98 H Pulse Rate from SpO2 Sensor 104 H 115 H Respiratory Rate 25 H 22 22 Respiratory Depth Blood Pressure Blood Pressure Mean Pulse Oximetry 94 94 Oxygen Delivery Method Sepsis Recent Fever Within 48 Hours Sepsis New/Unexplained Change in Mental Status Sepsis Action Taken by Nursing 04/12/23 01:01 04/12/23 01:01 04/12/23 01:10 Temperature Temperature Source Pulse Rate 119 H 101 H Pulse Rate from SpO2 Sensor 105 H 100 H Respiratory Rate 28 H 25 H Respiratory Depth Blood Pressure 151/113 H Blood Pressure Mean 126 Pulse Oximetry 92 92 Oxygen Delivery Method Sepsis Recent Fever Within 48 Hours Sepsis New/Unexplained Change in Mental Status Sepsis Action Taken by Nursing 04/12/23 01:20 04/12/23 01:30 04/12/23 01:30 Temperature Temperature Source Pulse Rate 103 H 105 H Pulse Rate from SpO2 Sensor 111 H 97 H Respiratory Rate 22 23 Respiratory Depth Blood Pressure 139/82 Blood Pressure Mean 103 Pulse Oximetry 98 99 Oxygen Delivery Method Sepsis Recent Fever Within 48 Hours Sepsis New/Unexplained Change in Mental Status Sepsis Action Taken by Nursing 04/12/23 01:40 04/12/23 01:50 04/12/23 02:00 Temperature Temperature Source Pulse Rate 93 H 108 H 87 Pulse Rate from SpO2 Sensor 108 H 108 H Respiratory Rate 23 19 20 Respiratory Depth Blood Pressure 143/94 H Blood Pressure Mean 126 Pulse Oximetry 98 98 99 Oxygen Delivery Method Sepsis Recent Fever Within 48 Hours Sepsis New/Unexplained Change in Mental Status Sepsis Action Taken by Nursing 04/12/23 02:00 Temperature Temperature Source Pulse Rate 92 H Pulse Rate from SpO2 Sensor 96 H Respiratory Rate 23 Respiratory Depth Blood Pressure Blood Pressure Mean Pulse Oximetry 99 Oxygen Delivery Method Sepsis Recent Fever Within 48 Hours Sepsis New/Unexplained Change in Mental Status Sepsis Action Taken by Jail Medications Current Medication List: was personally reviewed by me Laboratory Data Attestation: I reviewed the patient's lab results. 04/14/23 06:10 04/14/23 06:10 Lab Results 04/11/23 04/12/23 Range/Units 23:43 00:13 WBC 15.98 H (4.8-10.8) K/ul RBC 4.28 (4.20-5.40) M/uL Hgb 11.7 L (12.0-16.0) g/dl Hct 38.0 (37.0-47.0) % MCV 88.8 (80.0-100.0) fL MCH 27.3 (25.0-34.0) pg MCHC 30.8 L (32.0-36.0) g/dL RDW Std Deviation 51.8 H (36.4-46.3) fL RDW Coeff of Nimesh 16.0 H (11.5-14.5) % Plt Count 557 H (130-400) K/uL MPV 10.4 (9.4-12.4) fL Immature Gran % (Auto) 0.6 % Neut % (Auto) 84.0 % Lymph % (Auto) 7.4 % [place] % (Auto) 7.5 % Eos % (Auto) 0.1 % Baso % (Auto) 0.4 % Neut # (Auto) 13.43 H (1.40-6.50) K/uL Lymph # (Auto) 1.18 L (1.20-3.40) K/uL [place] # (Auto) 1.20 H (0.11-0.59) K/uL Eos # (Auto) 0.01 (0.00-0.50) K/uL Baso # (Auto) 0.07 (0.00-0.20) K/uL Immature Gran # (Auto) 0.09 (0.01-0.20) K/uL PT 13.0 H (9.0-12.0) Seconds INR 1.2 H (0.9-1.1) APTT 27 (21-31) Seconds PTT Ratio 1.0 Sodium 140 (136-145) mmol/L Potassium 4.0 (3.5-5.1) mmol/L Chloride 106 (98-107) mmol/L Carbon Dioxide 27 (21-32) mmol/L Anion Gap 7 (3-11) BUN 20 (6-23) mg/dl Creatinine 0.63 (0.6-1.2) mg/dl Est Cr Clr Drug Dosing 64.2 ml/min Est GFR ( Amer) 94.1 ml/min Est GFR (Non-Af Amer) 81.2 ml/min BUN/Creatinine Ratio 31.7 H (10-20) Glucose 131 H (70-99(Fasting)) mg/dl Calcium 9.5 (8.6-10.3) mg/dl Total Bilirubin 0.7 (0.2-1.0) mg/dl AST 24 (13-39) U/L ALT 16 (7-52) U/L Alkaline Phosphatase 91 (34-104) U/L Total Protein 6.4 (6.0-8.3) gm/dl Albumin 3.7 (3.4-5.0) gm/dl Globulin 2.7 (2.5-4.0) gm/dl Albumin/Globulin Ratio 1.4 (0.9-2) Urine Color Yellow Urine Appearance Clear (Clear) Urine pH 5.0 (4.5-7.5) Ur Specific [place] 1.015 (1.000-1.030) Urine Protein Negative (Negative) Urine Glucose (UA) Negative (Negative) Urine Ketones Trace H (Negative) Urine Blood Negative (Negative) Urine Nitrite Negative (Negative) Urine Bilirubin Negative (Negative) Urine Urobilinogen Negative (Negative) Ur Leukocyte Esterase Negative (Negative) Administered Medications Acetaminophen (Acetaminophen 500 Mg Tab) 1,000 mg PO TID PRN PRN Reason: Pain & Pre PT Stop: 05/13/23 07:54 Last Admin: 04/17/23 09:26 Dose: 1,000 mg Documented By: Admin: 04/17/23 02:35 Dose: 1,000 mg Documented By: Admin: 04/16/23 09:49 Dose: 1,000 mg Documented By: Admin: 04/15/23 08:48 Dose: 1,000 mg Documented By: Admin: 04/14/23 21:14 Dose: 1,000 mg Documented By: Admin: 04/14/23 08:39 Dose: 1,000 mg Documented By: ORIN Apixaban (Apixaban 5 Mg Tablet) 5 mg PO BID KETTY Stop: 05/13/23 08:59 Last Admin: 04/17/23 21:21 Dose: 5 mg Documented By: Admin: 04/17/23 09:20 Dose: 5 mg Documented By: Admin: 04/16/23 21:39 Dose: 5 mg Documented By: Admin: 04/16/23 09:50 Dose: 5 mg Documented By: Admin: 04/15/23 20:03 Dose: 5 mg Documented By: Admin: 04/15/23 08:27 Dose: 5 mg Documented By: Admin: 04/14/23 21:10 Dose: 5 mg Documented By: Admin: 04/14/23 08:07 Dose: 5 mg Documented By: Admin: 04/13/23 20:05 Dose: 5 mg Documented By: Admin: 04/13/23 09:41 Dose: 5 mg Documented By: ORIN Docusate Sodium (Docusate Sodium 100 Mg Cap) 100 mg PO BID KETTY Stop: 05/14/23 20:59 Last Admin: 04/17/23 21:28 Dose: Not Given Documented By: Admin: 04/17/23 09:21 Dose: 100 mg Documented By: Admin: 04/16/23 21:38 Dose: Not Given Documented By: Admin: 04/16/23 09:50 Dose: Not Given Documented By: Admin: 04/15/23 20:03 Dose: 100 mg Documented By: Admin: 04/15/23 08:28 Dose: 100 mg Documented By: Admin: 04/14/23 23:23 Dose: Not Given Documented By: CITLALY Escitalopram Oxalate (Escitalopram Oxalate 10 Mg Tab) 5 mg PO QPM KETTY Stop: 05/12/23 20:59 Last Admin: 04/17/23 21:20 Dose: 5 mg Documented By: Admin: 04/16/23 21:39 Dose: 5 mg Documented By: Admin: 04/15/23 20:03 Dose: 5 mg Documented By: Admin: 04/14/23 21:10 Dose: 5 mg Documented By: Admin: 04/13/23 20:04 Dose: 5 mg Documented By: Admin: 04/12/23 21:19 Dose: Not Given Documented By: DUGLAS Furosemide (Furosemide 40 Mg Tab) 40 mg PO QAM KETTY Stop: 05/13/23 08:59 Last Admin: 04/17/23 09:20 Dose: 40 mg Documented By: Admin: 04/16/23 09:51 Dose: 40 mg Documented By: Admin: 04/15/23 08:28 Dose: 40 mg Documented By: Admin: 04/14/23 08:08 Dose: 40 mg Documented By: Admin: 04/13/23 09:41 Dose: 40 mg Documented By: ORIN Morphine Sulfate (Morphine Sulfate 4 Mg/Ml 1 Ml Carp\\Vial) 3 mg IV Q3H PRN PRN Reason: Pain (6,7,8,9,10) Stop: 04/26/23 04:05 Last Admin: 04/12/23 11:10 Dose: 3 mg Documented By: ORIN Morphine Sulfate (Morphine Sulfate 2 Mg/Ml Carp) 1 mg IV Q3H PRN PRN Reason: Pain (1,2,3,4,5) & Pre PT Stop: 04/26/23 04:05 Last Admin: 04/12/23 12:50 Dose: 1 mg Documented By: ORIN Polyethylene Glycol (Polyethylene (Miralax) 17 Gm Pack) 17 gm PO DAILY [facility] Stop: 05/14/23 14:44 Last Admin: 04/17/23 09:24 Dose: Not Given Documented By: Admin: 04/16/23 09:50 Dose: Not Given Documented By: Admin: 04/15/23 08:29 Dose: Not Given Documented By: Admin: 04/14/23 15:54 Dose: 17 gm Documented By: ORIN Potassium Chloride (Potassium Chloride Crtab 20 Meq Tabcr) 20 meq PO QAM [facility] Stop: 05/13/23 08:59 Last Admin: 04/17/23 09:27 Dose: 20 meq Documented By: Admin: 04/16/23 09:51 Dose: 20 meq Documented By: Admin: 04/15/23 08:28 Dose: 20 meq Documented By: Admin: 04/14/23 08:08 Dose: 20 meq Documented By: Admin: 04/13/23 09:42 Dose: 20 meq Documented By: ORIN Silver Sulfadiazine (Silver Sulfadiazine 1% Cr 50 Gm Jar) 1 appln TOP DAILY [facility] Stop: 05/13/23 08:59 Last Admin: 04/17/23 09:21 Dose: 1 appln Documented By: Admin: 04/16/23 09:52 Dose: 1 appln Documented By: Admin: 04/15/23 08:28 Dose: 1 appln Documented By: Admin: 04/14/23 08:08 Dose: 1 appln Documented By: Admin: 04/13/23 09:43 Dose: 1 appln Documented By: ORIN Tramadol HCl (Tramadol Hcl 50 Mg Tablet) 50 mg PO Q6H PRN PRN Reason: moderate-severe pain Stop: 05/12/23 17:06 Last Admin: 04/17/23 21:20 Dose: 50 mg Documented By: Admin: 04/17/23 09:27 Dose: 50 mg Documented By: Admin: 04/16/23 09:49 Dose: 50 mg Documented By: RRStephenie Admin: 04/15/23 20:11 Dose: 50 mg Documented By: Admin: 04/15/23 05:36 Dose: 50 mg Documented By: Admin: 04/14/23 08:40 Dose: 50 mg Documented By: Admin: 04/13/23 09:42 Dose: 50 mg Documented By: ORIN Venlafaxine HCl (Venlafaxine Hcl Xr 37.5 Mg Capxr) 37.5 mg PO QAM KETTY Stop: 05/12/23 08:59 Last Admin: 04/17/23 09:20 Dose: 37.5 mg Documented By: Admin: 04/16/23 09:51 Dose: 37.5 mg Documented By: Admin: 04/15/23 08:28 Dose: 37.5 mg Documented By: Admin: 04/14/23 08:07 Dose: 37.5 mg Documented By: Admin: 04/13/23 09:42 Dose: 37.5 mg Documented By: Admin: 04/12/23 07:51 Dose: 37.5 mg Documented By: PIO Vitamin D (Cholecalciferol 1,000 Units 25 Mcg Tab) 1,000 units PO QAM [facility] Stop: 05/13/23 08:59 Last Admin: 04/17/23 09:20 Dose: 1,000 units Documented By: Admin: 04/16/23 09:50 Dose: 1,000 units Documented By: Admin: 04/15/23 08:28 Dose: 1,000 units Documented By: Admin: 04/14/23 08:07 Dose: 1,000 units Documented By: Admin: 04/13/23 09:41 Dose: 1,000 units Documented By: ORIN Discontinued Medications Bupivacaine HCl (Bupivacaine 0.5 % 5 Mg/1 Ml Mpf 30ml Vial) Confirm Administered Dose 30 ml .ROUTE .STK-MED ONE Stop: 04/12/23 15:36 Last Admin: 04/12/23 16:52 Dose: 30 ml Documented By: [facility] Fentanyl Citrate (Fentanyl Citrate Pf 100 Mcg/2 Ml Vial) 50 mcg IV NOW STA Stop: 04/12/23 01:08 Last Admin: 04/12/23 01:14 Dose: 50 mcg Documented By: ANN Fentanyl Citrate (Fentanyl Citrate Pf 100 Mcg/2 Ml Vial) 25 mcg IV Q5M PRN PRN Reason: PACU Use Only-Pain Stop: 04/12/23 23:04 Last Admin: 04/12/23 17:50 Dose: 25 mcg Documented By: Admin: 04/12/23 17:44 Dose: 25 mcg Documented By: Admin: 04/12/23 17:38 Dose: 25 mcg Documented By: Admin: 04/12/23 17:33 Dose: 25 mcg Documented By: TRINI Sodium Chloride (Nss) 1,000 mls @ 125 mls/hr IV .Q8H KETTY Stop: 04/12/23 07:44 Last Infusion: 04/12/23 08:44 Dose: Infused Documented By: Admin: 04/12/23 00:02 Dose: 125 mls/hr Documented By: ANN Acetaminophen (Ofirmev) 1,000 mg in 100 mls @ 400 mls/hr IV NOW STA Stop: 04/12/23 01:21 Last Infusion: 04/12/23 01:42 Dose: Infused Documented By: Admin: 04/12/23 01:14 Dose: 400 mls/hr Documented By: ANN Lactated Ringer's (Lr) 1,000 mls @ 50 mls/hr IV .Q20H KETTY Stop: 04/13/23 06:29 Last Infusion: 04/13/23 12:06 Dose: Infused Documented By: Admin: 04/12/23 13:27 Dose: 50 mls/hr Documented By: ORIN Cefazolin Sodium (Ancef 2000mg) 2,000 mg in 15 mls @ 3.75 mls/min IV PREOP ONE; Protocol Stop: 04/12/23 15:18 Last Admin: 04/12/23 15:40 Dose: 3.75 mls/min Documented By: [id number] Cefazolin Sodium (Ancef 2000mg) 2,000 mg in 15 mls @ 3.75 mls/min IV Q8H KETTY; Protocol Stop: 04/13/23 07:18 Last Admin: 04/13/23 09:41 Dose: 3.75 mls/min Documented By: Admin: 04/12/23 23:18 Dose: 3.75 mls/min Documented By: DUGLAS Magnesium Sulfate/Dextrose (Magnesium Sulfate / D5w) 1 gm in 100 mls @ 50 mls/hr IV ONE ONE Stop: 04/13/23 09:59 Last Infusion: 04/13/23 12:52 Dose: Infused Documented By: Admin: 04/13/23 09:41 Dose: 50 mls/hr Documented By: ORIN Metoprolol Succinate (Metoprolol Succ 50mg Ext Rel Tab) 100 mg PO QAM KETTY Stop: 05/12/23 08:59 Last Admin: 04/16/23 09:51 Dose: 100 mg Documented By: Admin: 04/15/23 08:28 Dose: 100 mg Documented By: Admin: 04/14/23 08:07 Dose: 100 mg Documented By: Admin: 04/13/23 09:42 Dose: 100 mg Documented By: Admin: 04/12/23 07:51 Dose: 100 mg Documented By: PIO Metoprolol Succinate (Metoprolol Succ 25mg Ext Rel Tab) 125 mg PO QAM KETTY Stop: 05/17/23 08:59 Last Admin: 04/17/23 10:23 Dose: 125 mg Documented By: KELLY Oxycodone HCl (Oxycodone Hcl Ir 5 Mg Tab (Immediate Release)) 5 mg PO NOW STA Stop: 04/16/23 13:22 Last Admin: 04/16/23 13:38 Dose: 5 mg Documented By: ANJANA Tranexamic Acid (Tranexamic Acid / 0.7% Nacl 1000mg/100ml Bag) Confirm Administered Dose 1,000 mg IV .STK-MED ONE Stop: 04/12/23 16:48 Last Admin: 04/12/23 16:51 Dose: 1,000 mg Documented By: [id number] Imaging Data Radiologist's Impression: Head CT 04/11/23 23:53 Exam(s): CT HEAD Without Contrast EXAM: CT Head Without Intravenous Contrast CLINICAL HISTORY: Reason for exam: fall, blood thinners. TECHNIQUE: Axial computed tomography images of the head/brain without intravenous contrast. CTDI is 35.51 mGy and DLP is 547.75 mGy-cm. Automated exposure control was utilized for the study. A dose lowering technique was utilized adhering to the principles of ALARA. COMPARISON: No relevant prior studies available. FINDINGS: No acute intracranial hemorrhage. No midline shift or mass effect. The territorial alegria-white matter differentiation is maintained throughout. Age-related cerebral volume loss. Periventricular and subcortical white matter hypoattenuation, consistent with chronic microangiopathy. The visualized orbits appear grossly unremarkable. The calvarium is intact. The visualized paranasal sinuses and mastoid air cells are grossly clear. IMPRESSION: No acute intracranial hemorrhage, midline shift, or mass effect. Electronically signed by: Ga Coker MD 04/12/23 01:10 AM Discharge Plan Visit Data Chief Complaint: Hip Pain Stated Complaint: fall ED Provider: Mónica Montgomery Discharge Problem: Hip fracture Patient Disposition: Admitted As Inpatient Discharge Instructions Interventions: ED Discharge Assessment Last Done: 04/12/23 02:46 Discharge Problem: Hip fracture Qualifiers: Encounter type: initial encounter Fracture type: closed Laterality: right Q ualified Code(s): S72.001A - Fracture of unspecified part of neck of right femur, initial encounter for closed fracture
[2023-04-12] MEDS ORDERED: bisacodyL 10 MG SUPP PR PRN (04:06)
[2023-04-12] MEDS ORDERED: MoRPHine SULFATE 4 MG/ML 1 ML CARP\\VIAL IV PRN (04:06)
[2023-04-12] MEDS ORDERED: ACETAMINOPHEN 325 MG TAB PO PRN (04:06)
[2023-04-12] MEDS ORDERED: MAGNESIUM HYDROXIDE SUSP 30 ML UDC PO PRN (04:06)
[2023-04-12] MEDS ORDERED: ONDANSETRON INJ 2 MG/ML 2 ML VIAL IV PRN ×3 (04:06→15:04)
[2023-04-12] MEDS ORDERED: NALOXONE HCL 0.4 MG/1 ML VIAL/CARP IV PRN (04:06)
[2023-04-12] MEDS ORDERED: MoRPHine SULFATE 2 MG/ML CARP IV PRN (04:06)
[2023-04-12] MEDS ORDERED: ACETAMINOPHEN 500 MG TAB PO PRN (04:06)
[2023-04-12] MEDS: METOPROLOL SUCC 50MG EXT REL TAB PO SCH (07:51)
[2023-04-12] MEDS: VENLAFAXINE HCL XR 37.5 MG CAPXR PO SCH (07:51)
--- NOTE | 2023-04-12 07:55 | XRay Report ---
SINGLE VIEW CHEST CLINICAL HISTORY: Trauma. FINDINGS: An AP, portable, upright chest radiograph is compared to study dated 03/01/2023 and correlat ed with chest CT dated 03/20/2022. The heart is enlarged and noting atherosclerotic calcification of the thoracic aorta. There is pulmonary vascular congestion. Chronic interstitial thickening is simila r to previous. There is chronic elevation of the right hemidiaphragm noting bibasilar scarring/atelec tasis. No airspace consolidation, large pleural effusion, or pneumothorax is seen. The skeletal struc tures are osteopenic. The bony thorax is grossly intact. IMPRESSION: 1. Cardiomegaly with pulmonary vascular congestion. 2. No airspace consolidation or large pleural effusion is identified. ACT 112: Negative or not required by law. Electronically signed by: Anish Whitaker M.D. 04/12/2023 7:53 AM
--- NOTE | 2023-04-12 07:57 | XRay Report ---
RIGHT HIP 2 VIEWS CLINICAL HISTORY: Right hip injury. FINDINGS: AP and crosstable lateral views of the right hip are correlated with pelvic x-ray dated 06/25. The skeletal structures are osteopenic. There is an angulated intertrochanteric fracture of t he right proximal femur. There is medial distraction of the lesser trochanter. The visualized right h emipelvis appears intact. Mild/moderate arthritic change and joint space narrowing is noted in the ri ght hip. Degenerative sclerosis is seen in the right sacroiliac joint. There is overlying soft tissue edema. IMPRESSION: Intertrochanteric fracture of the right proximal femur as above. Electronically signed by: Anish Whitaker M.D. 04/12/2023 7:56 AM
[2023-04-12] MEDS ORDERED: LACTATED RINGER'S 1,000 ML IV SCH (10:30)
--- NOTE | 2023-04-12 10:31 | History & Physical Bridge Note ---
Date of Service April 12, 2023 History & Physical Bridge Note I have examined the patient, reviewed the History & Physical and in the interval since the performance of the History & Physical I have noted the following changes of clinical significance: Pt with rapid afib on admission and recent hospitalization for MATT and Acute on chronic HFpEF. Was to have a cardioversion tomorrow for ongoing symptomatic and intermittently rapid afib. Denies CP, SOB but is on supplemental O2. Having pain in right hip. Is feeling thirsty. I discussed her case with her Technology Risk Intern who agreed to cancel cardioversion and wait until Eliquis is uninterrupted x 3-4 weeks. Rates are mildly tachy here-will transfer to tele for closer monitoring of rates and watch for acute on chronic HFpEF. I discussed her care with Ortho PA and patient's niece, Glory, on the phone and all in agreement with plan. She is medically stable/optimized for surgery today and should proceed with hip ORIF as planned. Resume home lasix and KCl fo rin the morning, Cautious use of IVFs today--> will order 1 L of LR at 50 mL/hr for today while NPO until surgery later today. Advise minimal fluids post-op
--- NOTE | 2023-04-12 14:52 | Anesthesiology Consultation ---
Date of Service April 12, 2023 Assessment & Plan (1) Encounter for pre-operative examination: Chart Review Chart Review: Acceptable Risk for Surgery and Patient NOT seen in Pre Admission Testing Consults Requested none History Surgery Operation Date: 04/12/23 10:40 Proposed Procedures p Right IM Nail Femur Fracture - Khari Cunningham MD Height/Weight Height: 5 ft 5 in Weight: 71.5 kg Allergies Allergy/AdvReac Type Severity Reaction Status Date / Time lisinopril Allergy Mild Hives Verified 04/10/23 09:49 nitrofurantoin Allergy Mild Hives Verified 04/10/23 09:49 Penicillins Allergy Mild Hives Verified 04/10/23 09:49 Sulfa (Sulfonamide Allergy Mild Hives Verified 04/10/23 09:49 Antibiotics) latex Allergy Itching Verified 04/10/23 10:57 Medications Home Medications Medication Instructions Recorded Confirmed Last Taken cholecalciferol (vitamin D3) 25 25 mcg PO QAM 10/23/22 04/12/23 12/27/22 mcg (1,000 unit) capsule menthol 5 % topical gel (Biofreeze 1 ea topical DAILY PRN Pain 11/24/22 04/12/23 12/27/22 (menthol)) silver sulfadiazine 1 % topical 1 applic topical DAILY 11/24/22 04/12/23 12/27/22 cream escitalopram oxalate 5 mg tablet 5 mg PO QPM 12/27/22 04/12/23 12/26/22 (Lexapro) venlafaxine 37.5 mg 37.5 mg PO QAM 12/27/22 04/12/23 12/27/22 capsule,extended release 24 hr (Effexor XR) acetaminophen 500 mg tablet 1,000 mg PO TID PRN PAIN/FEVER 01/15/23 04/12/23 Unknown (Tylenol Extra Strength) triamcinolone acetonide 0.1 % 1 applic topical BID PRN flare ups 01/15/23 04/12/23 Unknown topical cream potassium chloride 20 mEq 20 meq PO QAM #90 tabs 02/19/23 04/12/23 Unknown tablet,extended release apixaban 5 mg tablet 5 mg PO BID #180 tabs 04/09/23 04/12/23 04/11/23 09:00 furosemide 40 mg tablet (Lasix) 40 mg PO QAM 04/10/23 04/12/23 Unknown metoprolol succinate 50 mg 100 mg PO QAM 04/10/23 04/12/23 Unknown tablet,extended release 24 hr tramadol 50 mg tablet 50 mg PO QAM PRN Pain 04/10/23 04/12/23 Unknown Active Medications Generic Name Dose Route Start Last Admin Trade Name Freq PRN Reason Stop Dose Admin Lactated Ringer's 1,000 mls @ 50 mls/hr 04/12/23 10:30 04/12/23 13:27 Lr IV 04/13/23 06:29 50 mls/hr .Q20H KETTY Administration Metoprolol Succinate 100 mg 04/12/23 09:00 04/12/23 07:51 Metoprolol Succ 50mg Ext Rel Tab PO 05/12/23 08:59 100 mg QAM KETTY Administration Morphine Sulfate 3 mg 04/12/23 04:06 04/12/23 11:10 Morphine Sulfate 4 Mg/Ml 1 Ml Carp\\Vial IV 04/26/23 04:05 3 mg Q3H PRN Administration Pain (6,7,8,9,10) Morphine Sulfate 1 mg 04/12/23 04:06 04/12/23 12:50 Morphine Sulfate 2 Mg/Ml Carp IV 04/26/23 04:05 1 mg Q3H PRN Administration Pain (1,2,3,4,5) & Pre PT Venlafaxine HCl 37.5 mg 04/12/23 09:00 04/12/23 07:51 Venlafaxine Hcl Xr 37.5 Mg Capxr PO 05/12/23 08:59 37.5 mg QAM KETTY Administration NPO Date Last Intake of Fluids: 04/11/23 Time Last Intake of Fluids: 23:00 Date Last Intake of Solids: 04/11/23 Time Last Intake of Solids: 23:00 Past Medical History Medical History History of COVID-19 12/2022; beginning 02/2023, home test, not hosp; moderate symptoms>all resolved Atrial fibrillation (HFpEF) heart failure with preserved ejection fraction f/u dr. 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 H/O nonmelanoma skin cancer removed Left knee DJD Anxiety Peripheral neuropathy Urinary frequency With cystocele; Surgical intervention had been recommended but deferred due to her 's health concerns Depression GERD (gastroesophageal reflux disease) Osteoporosis Generalized osteoarthritis Hallux rigidus, right foot Hallux rigidus, left foot Hammertoe of left foot Pressure ulcer of toe of right foot, stage 2 "has had since 2013" Benign paroxysmal positional vertigo Venous stasis ulcer Colitis hx Hearing deficit hearing aid lt ear Bigeminy dx s>no current issues Hypertension Past Family History Family History Brother Family history of diabetes mellitus Father Stroke Heart disease Myocardial infarction Mother Leukemia Sister Myocardial infarction Denies family history of Ovarian cancer Prostate cancer Breast cancer Lung cancer Colorectal cancer Cancer Past Surgical History Surgical History History of cholecystectomy S/P colonoscopy Hx of cataract surgery lt/rt S/P total abdominal hysterectomy w/rt oophorectomy History of tonsillectomy Social History Smoking Status: Never smoker Do You Dip or Chew Tobacco: No Hx Alcohol Use: No Hx Substance Use: No substance use type: does not use Physical Exam Vital Signs Last Vital Signs Temp 97.7 F 04/12/23 13:32 Pulse 95 H 04/12/23 13:32 Resp 18 04/12/23 13:32 BP 128/86 04/12/23 13:32 Pulse Ox 98 04/12/23 13:32 O2 Del Method Room Air 04/12/23 13:32 O2 Flow Rate 2.0 04/12/23 11:46 Testing Laboratory Results 04/11/23 23:43 04/11/23 23:43 PT 13.0 Seconds (9.0-12.0) H 04/11/23 23:43 INR 1.2 (0.9-1.1) H 04/11/23 23:43 APTT 27 Seconds (21-31) 04/11/23 23:43 Urine Color Yellow 04/12/23 00:13 Urine Appearance Clear (Clear) 04/12/23 00:13 Urine pH 5.0 (4.5-7.5) 04/12/23 00:13 Ur Specific [place] 1.015 (1.000-1.030) 04/12/23 00:13 Urine Protein Negative (Negative) 04/12/23 00:13 Urine Glucose (UA) Negative (Negative) 04/12/23 00:13 Urine Ketones Trace (Negative) H 04/12/23 00:13 Urine Nitrite Negative (Negative) 04/12/23 00:13 Ur Leukocyte Esterase Negative (Negative) 04/12/23 00:13 Electrocardiogram Date: 04/11/23 Findings: + AFIB @ Echocardiogram Date: 03/01/23 EF: 50-55 LV Function: normal Valvular Disease: + MR
[2023-04-12] MEDS ORDERED: ePHEDrine sulfate 50 MG/ML AMP IV PRN (15:04)
[2023-04-12] MEDS ORDERED: ATROPINE SULFATE 0.1 MG/ML 10ML SYR IV PRN (15:04)
--- NOTE | 2023-04-12 15:12 | Orthopedic Consultation ---
Date of Consultation April 12, 2023 Assessment & Plan (1) Hip fracture: I discussed the diagnosis treatment options with the patient. Surgery is indicated to allow her to regain the ability to walk. However because of her age and medical comorbidities she is at risk for surgical and anesthesia compli cations. I reviewed all of these at length with her. She elects to proceed with surgery. All questions were answered. Informed consent was signed. Surgical site was marked. Plan on proceeding to the operating room today. She has been n.p.o. since midnight last night. History of Present Illness Reason for Consultation: Right intertrochanteric femur fracture Attending Physician: Stefanie Mcintyre MD History of Present Illness 87-year-old female patient with past medical history of atrial fibrillation on Eliquis, heart failure, peripheral arterial disease, osteoarthritis, presents to the emergency department with complaints of right hip pain. The patient states she was reaching for her bedpost when she missed it and lost her balance, falling to the ground. Patient denies hitting her head. She denies any recent fevers, chest pain, shortness of breath, vomiting or diarrhea. Patient's niece mentions that she is scheduled to have a cardioversion with Dr. Gregory in 2 days. X-rays in the emergency room demonstrated a intertrochanteric right femur fracture. Patient was admitted from the emergency room to the internal medicine service last night. She was cleared for surgery today. Orthopedics was co nsulted for evaluation and management of her right hip. Patient was seen and examined on the floor. She denied pain anywhere else in her body other than her right hip. Denied numbness or tingling down her leg. No prior history of problems with the right hip. Allergies Allergy/AdvReac Type Severity Reaction Status Date / Time lisinopril Allergy Mild Hives Verified 04/10/23 09:49 nitrofurantoin Allergy Mild Hives Verified 04/10/23 09:49 Penicillins Allergy Mild Hives Verified 04/10/23 09:49 Sulfa (Sulfonamide Allergy Mild Hives Verified 04/10/23 09:49 Antibiotics) latex Allergy Itching Verified 04/10/23 10:57 Home Medications Medication Instructions Recorded Confirmed Type cholecalciferol (vitamin D3) 25 25 mcg PO QAM 10/23/22 04/12/23 History mcg (1,000 unit) capsule menthol 5 % topical gel (Biofreeze 1 ea topical DAILY PRN Pain 11/24/22 04/12/23 History (menthol)) silver sulfadiazine 1 % topical 1 applic topical DAILY 11/24/22 04/12/23 History cream escitalopram oxalate 5 mg tablet 5 mg PO QPM 12/27/22 04/12/23 History (Lexapro) venlafaxine 37.5 mg 37.5 mg PO QAM 12/27/22 04/12/23 History capsule,extended release 24 hr (Effexor XR) acetaminophen 500 mg tablet 1,000 mg PO TID PRN PAIN/FEVER 01/15/23 04/12/23 History (Tylenol Extra Strength) triamcinolone acetonide 0.1 % 1 applic topical BID PRN flare ups 01/15/23 04/12/23 History topical cream potassium chloride 20 mEq 20 meq PO QAM #90 tabs 02/19/23 04/12/23 Rx tablet,extended release apixaban 5 mg tablet 5 mg PO BID #180 tabs 04/09/23 04/12/23 Rx furosemide 40 mg tablet (Lasix) 40 mg PO QAM 04/10/23 04/12/23 History metoprolol succinate 50 mg 100 mg PO QAM 04/10/23 04/12/23 History tablet,extended release 24 hr tramadol 50 mg tablet 50 mg PO QAM PRN Pain 04/10/23 04/12/23 History Patient History Medical History History of COVID-19 12/2022; beginning 02/2023, home test, not hosp; moderate symptoms>all resolved Atrial fibrillation (HFpEF) heart failure with preserved ejection fraction f/u dr. 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 H/O nonmelanoma skin cancer removed Left knee DJD Anxiety Peripheral neuropathy Urinary frequency With cystocele; Surgical intervention had been recommended but deferred due to her 's health concerns Depression GERD (gastroesophageal reflux disease) Osteoporosis Generalized osteoarthritis Hallux rigidus, right foot Hallux rigidus, left foot Hammertoe of left foot Pressure ulcer of toe of right foot, stage 2 "has had since 2013" Benign paroxysmal positional vertigo Venous stasis ulcer Colitis hx Hearing deficit hearing aid lt ear Bigeminy dx 1970's>no current issues Hypertension Surgical History History of cholecystectomy S/P colonoscopy Hx of cataract surgery lt/rt S/P total abdominal hysterectomy w/rt oophorectomy History of tonsillectomy Family History Brother Family history of diabetes mellitus Father Stroke Heart disease Myocardial infarction Mother Leukemia Sister Myocardial infarction Denies family history of Ovarian cancer Prostate cancer Breast cancer Lung cancer Colorectal cancer Cancer Social History Smoking Status: Never smoker Second Hand Exposure: Yes (hx); Do You Dip or Chew Tobacco: No; Hx Alcohol Use: No Hx Substance Use: No Preferred Language: Polish Communication Ability: Effective Visual Impairment: Limited Hearing Ability: Use of Hearing Aid Technician Trainee Required: No Beliefs That Will Affect Care: None marital status: Current Living Situation: Alone Current Living Situation Comment: From [facility] [employer] current occupational status: retired How many Children do You have: 0 Other Information That Helps Us Care for You: No Feels Safe at Home: Yes Safety Concerns: Feels Safe At This Time Childhood Exposure to Second-Hand Smoke: No caffeine: Yes during the past year weight has: remained stable Dental Care, Regularly: Yes Physical Activity Frequency: 1-2 Times per Week Seatbelt Use: always Sunscreen Use: Yes Assistive Devices: Cane and Walker Physical Exam Physical Exam: On exam she is slightly confused but answers all questions appropriately. Bilateral lower extremity exam reveals some erythema and warmth in her lower extremities below the knees. She says this is her baseline. Her toes are warm and well-perfused. She is able to wiggle toes bilaterally. Reports sensation intact to moving light touch in the dorsal and plantar aspects of both feet. Right hip exam reveals mild swelling around the hip where she is tender to palpation. The skin is intact. Results & Data Vital Signs (Past 12 Hours) Vital Signs Temp Pulse Resp BP Pulse Ox O2 Del Method O2 Flow Rate 04/12/23 13:32 36.5 C 95 H 18 128/86 98 Room Air 04/12/23 11:46 36.4 C L 89 16 127/71 97 Nasal Cannula 2.0 04/12/23 08:01 Nasal Cannula 2 04/12/23 07:37 36.7 C 98 H 16 143/84 H 96 Nasal Cannula 2 04/12/23 07:13 36.7 C 98 H 16 143/84 H 96 Nasal Cannula 2 04/12/23 03:20 93 H 04/12/23 03:20 Nasal Cannula 2 04/12/23 03:20 36.6 C 16 145/83 H 99 Nasal Cannula 2 Diagnostic Findings X-rays done in the emergency room were reviewed and demonstrate a right intertrochanteric femur fracture. (1) Hip fracture Encounter type: initial encounter Fracture type: closed Laterality: right Qualified Code(s): S72.001A - Fracture of unspecified part of neck of right femur, initial encounter for closed fracture
[2023-04-12] MEDS ORDERED: ceFAZolin 2000MG 2,000 MG/15 ML SYR IV ONE (15:15)
[2023-04-12] MEDS ORDERED: fentaNYL citrate PF 100 MCG/2 ML VIAL ONE (15:33)
[2023-04-12] MEDS ORDERED: BUPIVACAINE 0.5 % 5 MG/1 ML MPF 30ML VIAL ONE (15:35)
[2023-04-12] MEDS ORDERED: PHENYLEPHRINE 100MCG/ML 10ML SYR IV ONE (16:32)
[2023-04-12] MEDS ORDERED: LIDOCAINE 2% 2 ML VIAL/AMP(20MG/ML) INFIL ONE (16:32)
[2023-04-12] MEDS ORDERED: ONDANSETRON INJ 2 MG/ML 2 ML VIAL ONE (16:32)
[2023-04-12] MEDS ORDERED: PROPOFOL IV EMULSION 10 MG/ML 20 ML VIAL IV ONE (16:32)
[2023-04-12] MEDS ORDERED: DEXAMETHASONE SOD INJ 4 MG/ML VIAL ONE (16:32)
[2023-04-12] MEDS ORDERED: ROCURONIUM BROMIDE 10 MG/ML 5 ML VIAL IV ONE (16:32)
[2023-04-12] MEDS ORDERED: PHENYLEPHRINE HCL 10 MG/ML VIAL ONE (16:32)
[2023-04-12] MEDS ORDERED: SUGAMMADEX SODIUM 200 MG/2 ML VIAL IV ONE (16:47)
[2023-04-12] MEDS ORDERED: TRANEXAMIC ACID / 0.7% NACL 1000MG/100ML BAG IV ONE (16:47)
--- NOTE | 2023-04-12 17:05 | Operative Report ---
Post Operative Report Pre & Post Diagnosis Operation Date: 04/12/23 10:40 Pre-Op Diagnosis: Right intertrochanteric femur fracture Post-Op Diagnosis: Right intertrochanteric femur fracture I identified the patient and participated in the time-out.: Yes Procedure Operation Date: 04/12/23 10:40 Actual Procedures p Right Intertrochanteric Nail Femur Fracture(Right) - Khari Cunningham MD Surgeon Khari Cunningham MD Core Finisher Danelle Deleon PA-C Estimated Blood Loss 50 Findings Consistent with Post-Op Diagnosis Specimens none Description of Procedure I was present during the entire case assisting with positioning, prepping, draping, wound retraction, wound closure and dressing application. No fellow present. Please see Dr. Cunningham procedure note for specifics of the case. I attest to the content of the Intraoperative Record and any orders documented therein. Any exceptions are noted below.
[2023-04-12] MEDS ORDERED: TRIAMCINOLONE ACET 0.1% CR 15 GM TUBE TOP PRN (17:07)
[2023-04-12] MEDS ORDERED: traMADol HCL 50 MG TABLET PO PRN (17:07)
--- NOTE | 2023-04-12 17:17 | Fluoroscopy Report ---
INTRAOPERATIVE RADIOGRAPHS CLINICAL HISTORY: Open reduction and internal fixation of the right proximal femur. Fluoro time: 79 seconds Ka,r: 16.38 mGy FINDINGS: 4 spot fluoroscopic views of the right hip are correlated with radiographs dated 04/12/2023. Intertrochanteric and intramedullary nails have been placed transfixing an intertrochanteric fractur e. Near anatomic alignment is restored. There is persistent medial displacement of the lesser trochan ter. A single cortical lag screw transfixes the distal intramedullary nail. Overlying soft tissue saul ma is observed. IMPRESSION: Intraoperative images from open reduction and internal fixation of the right proximal fem ur. Electronically signed by: Anish Whitaker M.D. 04/12/2023 5:15 PM
[2023-04-12] MEDS ORDERED: TROLAMINE SALICYLATE 10% CRM 255 APPLN/85 GM TUBE EXT PRN (17:21)
--- NOTE | 2023-04-12 17:23 | Operative Report ---
Post Operative Report Pre & Post Diagnosis Operation Date: 04/12/23 10:40 Preoperative diagnosis: Displaced right intertrochanteric femur fracture. Postop diagnosis: Displaced right intertrochanteric femur fracture I identified the patient and participated in the time-out.: Yes Procedure Operation Date: 04/12/23 10:40 open reduction internal fixation displaced right intertrochanteric femur fracture with an intramedullary nail Surgeon Khari Cunningham MD Dishwashing Machine Repairer Danelle Deleon PA-C Estimated Blood Loss 50 Findings Consistent with Post-Op Diagnosis Specimens none Anesthesia Type General Complications none Disposition Disposition: Recovery Room Indications 87-year-old female, fell yesterday at home. Immediate onset of right hip pain. She was brought to the emergency room where x-rays demonstrated displaced right intertrochanteric femur fracture. She was admitted to the internal medicine service. I saw her this morning. I discussed the diagnosis and treatment options. She was a candidate for surgery. I reviewed the risks and benefits of surgery, alternatives, and expected outcomes. After reviewing all these she elected to proceed with surgery. All questions were answered. Informed consent was signed. Description of Procedure Patient was identified in the preoperative holding area where her surgical site was marked. She was brought back to the main operating room where general anesthesia was administered on the hospital bed. She was then carefully moved onto the fracture table. IV antibiotics as well as 1 g of Tranexamic acid was administered. All bony prominences were padded. Both feet were wrapped with cotton padding and then placed in boots. The legs were scissored so as to facilitate lateral fluoroscopic imaging of the right hip. Patient was positioned against the perineal post. Fluoroscopy was then brought in. I was able to reduce the fracture using combination of traction and slight internal rotation of the hip. The operative site was then prepped and draped in the usual sterile fashion. Prior to incision a multidisciplinary timeout was called. All in the room were in agreement. I began by making a 5 cm long incision starting approximately 4 cm proximal to the tip of the greater trochanter. I dissected down to subcutaneous tissues to level the fascia. A guidewire was inserted through the fascia and the starting point was optimized on the AP and lateral fluoroscopic views. I then drove the guidewire under fluoroscopic imaging down to the level of the lesser trochanter. Opening reamer was then used over the top of the guidewire. The guidewire was removed. A 12 mm diameter short Synthes trochanteric fixation nail was opened up. This was 130 degree angle and made from titanium. The nail was slid down into the intramedullary canal and advanced to the appropriate level. The outrigger device was then attached and a small skin incision was made in the lateral aspect of the femur. The guide sleeve was inserted through the skin and down onto the bone of the femur. A guidewire was then drilled up into the center center position of the femoral head. This measured 209 mm. I elected to use 105 length helical blade. The cortex was opened followed by the step reamer. I then advanced the helical blade up into the femoral head without difficulty. The fracture was slightly compressed by turning the knob counterclockwise. The setscrew was then advanced from the top and the blade was placed on the static lock position. I then placed a single bicortical screw under fluoroscopic guidance through the distal aspect of the nail. excellent fixation was obtained. This point our final fluoroscopic images were obtained. I was happy with the reduction of the fracture as well as the position of her hardware. Wounds were irrigated with copious amounts normal saline. 0 Vicryl sutures were used for the fascia and subcutaneous layers. 2-0 Vicryl sutures were used for the deep dermal layer. Gallant were used for the skin. Sterile dressings were applied. Patient was then awoke from anesthesia and transferred recovery room in stable condition. Postoperative course: Patient will be readmitted to the internal medicine service. She will be weightbearing as tolerated on the right lower extremity with a walker and assistance. She can resume her Eliquis tomorrow for DVT prophylaxis. Follow-up with OLIVE Deleon in the orthopedic clinic 2 weeks after discharge. I attest to the content of the Intraoperative Record and any orders documented therein. Any exceptions are noted below.
[2023-04-12] MEDS: fentaNYL citrate PF 100 MCG/2 ML VIAL IV PRN ×4 (17:33→17:50)
--- NOTE | 2023-04-12 17:55 | Anesthesiology Progress Note ---
Date of Service April 12, 2023 Anesthesia Post Procedure Vital Signs Vital Signs: Temp Pulse Pulse Pulse Resp BP BP 04/12/23 17:50 118 H 16 111/89 04/12/23 17:40 122 H 17 138/95 04/12/23 17:30 112 H 22 152/88 H 04/12/23 17:20 108 H 20 110/80 04/12/23 17:14 36.1 C L 98 H 18 135/100 04/12/23 13:32 36.5 C 95 H 18 128/86 04/12/23 11:46 36.4 C L 89 16 127/71 04/12/23 08:01 04/12/23 07:37 36.7 C 98 H 16 143/84 H 04/12/23 07:13 36.7 C 98 H 16 143/84 H 04/12/23 03:20 93 H 04/12/23 03:20 04/12/23 03:20 36.6 C 16 145/83 H 04/12/23 02:40 102 H 16 04/12/23 02:30 89 21 04/12/23 02:30 100 H 20 145/87 H 04/12/23 02:20 100 H 21 04/12/23 02:10 91 H 21 04/12/23 02:00 92 H 23 04/12/23 02:00 87 20 143/94 H 04/12/23 01:50 108 H 19 04/12/23 01:40 93 H 23 04/12/23 01:30 105 H 23 04/12/23 01:30 139/82 04/12/23 01:20 103 H 22 04/12/23 01:10 101 H 25 H 04/12/23 01:01 119 H 28 H 04/12/23 01:01 151/113 H 04/12/23 01:00 98 H 22 04/12/23 00:40 109 H 22 04/12/23 00:30 101 H 25 H 04/12/23 00:30 147/91 H 04/12/23 00:20 101 H 21 04/12/23 00:10 111 H 23 04/12/23 00:01 112 H 31 H 04/12/23 00:01 109 H 26 H 151/93 H 04/12/23 00:00 109 H 35 H 04/11/23 23:52 115 H 26 H 04/11/23 23:51 108 H 04/11/23 23:42 36.6 C 98 H 21 133/106 H Pulse Ox O2 Del Method O2 Flow Rate 04/12/23 17:50 96 Nasal Cannula 3 04/12/23 17:40 91 Oxymask 4 04/12/23 17:30 92 Nasal Cannula 3 04/12/23 17:20 97 Oxymask 6 04/12/23 17:14 95 Oxymask 6 04/12/23 13:32 98 Room Air 04/12/23 11:46 97 Nasal Cannula 2.0 04/12/23 08:01 Nasal Cannula 2 04/12/23 07:37 96 Nasal Cannula 2 04/12/23 07:13 96 Nasal Cannula 2 04/12/23 03:20 04/12/23 03:20 Nasal Cannula 2 04/12/23 03:20 99 Nasal Cannula 2 04/12/23 02:40 100 04/12/23 02:30 99 04/12/23 02:30 99 04/12/23 02:20 99 04/12/23 02:10 99 04/12/23 02:00 99 04/12/23 02:00 99 04/12/23 01:50 98 04/12/23 01:40 98 04/12/23 01:30 99 04/12/23 01:30 04/12/23 01:20 98 04/12/23 01:10 92 04/12/23 01:01 92 04/12/23 01:01 04/12/23 01:00 04/12/23 00:40 94 04/12/23 00:30 94 04/12/23 00:30 04/12/23 00:20 91 04/12/23 00:10 94 04/12/23 00:01 93 04/12/23 00:01 93 04/12/23 00:00 94 04/11/23 23:52 93 04/11/23 23:51 04/11/23 23:42 92 Room Air Pain Intensity Right Leg: Pain Intensity: 8 Transfer of Care Handoff Completed per policy Notes Mental Status: alert / awake / arousable Patient Amnestic to Procedure: Yes Nausea / Vomiting: adequately controlled Pain: adequately controlled Airway Patency, RR, SpO2: stable & adequate BP & HR: stable & adequate Hydration State: stable & adequate Anesthetic Complications: no major complications apparent and Pt Satisfied with anesthetic care
--- NOTE | 2023-04-12 19:15 | XRay Report ---
XR hip RT min 2V CLINICAL HISTORY: Post-Operative implant position. Right hip fracture. COMPARISON STUDY: Right hip 04/12/2023. FINDINGS: Status post internal fixation of the right femoral intertrochanteric fracture with a proxim al femoral intramedullary tanner and interlocking femoral neck pin. The hardware is intact. Alignment is near-anatomic. No dislocation. Skin kim are in place. IMPRESSION: Postoperative changes within the right femur as described above. No evidence for hardwar e complication. ACT 112: Negative or not required by law. Electronically signed by: Bryce Dougherty M.D. 04/12/2023 7:13 PM
[2023-04-12] MEDS: ESCITALOPRAM OXALATE 10 MG TAB PO SCH (21:19)
[2023-04-12] MEDS: ceFAZolin 2000MG 2,000 MG/15 ML SYR IV SCH (23:18)
[2023-04-13 06:58] LABS: Basophils # (auto) 0.04 K/uL (0.00-0.20); Basophils % (auto) 0.3 %; Hematocrit (blood only) 29.9 % (37.0-47.0); Hemoglobin 9.4 g/dl (12.0-16.0); Immature Granulocytes # (auto) 0.06 K/uL (0.01-0.20); Immature Granulocytes % (auto) 0.4 %; Lymphocytes # (auto) 1.72 K/uL (1.20-3.40); Lymphocytes % (auto) 12.8 %; Mean Corpuscular Hemoglobin 27.7 pg (25.0-34.0); Mean Corpuscular Hgb Conc 31.4 g/dL (32.0-36.0); Mean Corpuscular Volume 88.2 fL (80.0-100.0); Mean Platelet Volume 10.6 fL (9.4-12.4); Monocytes # (auto) 2.02 K/uL (0.11-0.59); Neutrophils # (auto) 9.61 K/uL (1.40-6.50); Neutrophils % (auto) 71.5 %; Platelet Count 521 K/uL (130-400); RDW Coefficient of Variation 15.9 % (11.5-14.5); RDW Standard Deviation 51.2 fL (36.4-46.3); Red Blood Count 3.39 M/uL (4.20-5.40); White Blood Count 13.45 K/ul (4.8-10.8)
[2023-04-13 07:11] LABS: BUN Creatinine Ratio 36.7 (10-20); Calcium 8.6 mg/dl (8.6-10.3); Creatinine Clr Calc Pharmacy 81.7 ml/min; Est GFR (African American) 102.2 ml/min; Est GFR (Non-African American) 88.2 ml/min; Magnesium 1.8 mg/dl (1.7-2.4); Potassium 4.4 mmol/L (3.5-5.1)
[2023-04-13] MEDS ORDERED: MAGNESIUM SULFATE / D5W 1 GM/100 ML BAG IV ONE (08:00)
[2023-04-13] MEDS: CHOLECALCIFEROL 25 MCG (1000 UNITS) TAB PO SCH (09:41)
[2023-04-13] MEDS: APIXABAN 5 MG TABLET PO SCH ×2 (09:41→20:05)
[2023-04-13] MEDS: FUROSEMIDE 40 MG TAB PO SCH (09:41)
[2023-04-13] MEDS: ceFAZolin 2000MG 2,000 MG/15 ML SYR IV SCH (09:41)
[2023-04-13] MEDS: POTASSIUM CHLORIDE CRTAB 20 MEQ TABCR PO SCH (09:42)
[2023-04-13] MEDS: traMADol HCL 50 MG TABLET PO PRN (09:42)
[2023-04-13] MEDS: METOPROLOL SUCC 50MG EXT REL TAB PO SCH (09:42)
[2023-04-13] MEDS: VENLAFAXINE HCL XR 37.5 MG CAPXR PO SCH (09:42)
[2023-04-13] MEDS: SILVER SULFADIAZINE 1% CR 50 GM JAR TOP SCH (09:43)
--- NOTE | 2023-04-13 09:47 | Orthopedic Progress Note ---
Date of Service April 13, 2023 Assessment & Plan (1) Hip fracture: Plan: Patient is post op day #1, s/p a right hip ORIF trochanteric femur fracture with Dr. Cunningham 04/12/23 -Doing as expected -She will be weightbearing as tolerated on the right leg with walker and assistance -She will follow up in our office in 2 weeks for staple removal -Proximal dressing changed today.Dressings may be changed if it they become soiled. Monitor and reinforce/change as needed -Continue with ice to the right hip prn -Pain control per primary -DVT prophylaxis per primary, able to restart Eliquis today if primary agrees -CM d/c planning, recommend placement for rehabilitation -We will continue to follow post operatively Present on Admission?: Yes Admission and Anticipated Discharge Date Admission Date: April 12, 2023 Subjective Patient is A 87-year-old female who is post op day #1, s/p a right hip ORIF trochanteric femur fracture with Dr. Cunningham 04/12/23 Patient was seen bedside this a.m. [employer] is present and cleaning patient up. Patient states she is doing fair. She complains of having pain in her right hip and rates as 6/10. She otherwise does not report any issues. She states last night she seemed to be confused and was told it was because of the medication. She states she feels better today. She denies having any nausea or vomiting or belly pain. She denies any fever, chills, chest pain or shortness of breath. She denies any calf pain. Review of Systems Review of Systems: Please refer to HPI Physical Exam Physical Exam: General: Patient is alert and oriented x 3 answering questions appropriately does not appear to be in any distress Integumentary/musculoskeletal: Attention to the right lower extremity. She has mild edema with resolving ecchymosis as anticipated. Dressings are intact the more proximal 1 is soiled this was removed. Incision is well-approximated with kim negative for any active bleeding or drainage. Negative for any fluctuance or induration surrounding both incisions. New dressing was applied to the proximal incision. She does have some erythema in the right groin negative for any drainage. She is able to tolerate gentle range of motion of the hip. She is able to actively assist with knee flexion. She is unable to do a straight leg raise without assistance. She is able to actively dorsiflex and plantarflex ankle. I did assist the [employer] with rolling patient to clean her as well as to assist with changing sheet. Patient was able to tolerate positioning and assisted with positioning without increased discomfort. Her sensation is intact over the right lower extremity. Dorsal pedis pulses 1. Results & Data Vital Signs (Past 12 Hours) Vital Signs Temp Pulse Pulse Resp BP Pulse Ox O2 Del Method 04/13/23 07:35 36.5 C 114 H 18 120/77 97 Oxymask 04/13/23 03:45 36.5 C 106 H 18 111/64 95 Nasal Cannula 04/12/23 23:14 108 H 17 97/61 L 99 Nasal Cannula 04/12/23 21:58 90 O2 Flow Rate 04/13/23 07:35 2 04/13/23 03:45 2 04/12/23 23:14 2 04/12/23 21:58 Laboratory Results 04/13/23 Range/Units 05:55 WBC 13.45 H (4.8-10.8) K/ul RBC 3.39 L (4.20-5.40) M/uL Hgb 9.4 L (12.0-16.0) g/dl Hct 29.9 L (37.0-47.0) % MCV 88.2 (80.0-100.0) fL MCH 27.7 (25.0-34.0) pg MCHC 31.4 L (32.0-36.0) g/dL RDW Std Deviation 51.2 H (36.4-46.3) fL RDW Coeff of Nimesh 15.9 H (11.5-14.5) % Plt Count 521 H (130-400) K/uL MPV 10.6 (9.4-12.4) fL Immature Gran % (Auto) 0.4 % Neut % (Auto) 71.5 % Lymph % (Auto) 12.8 % [place] % (Auto) 15.0 % Eos % (Auto) 0.0 % Baso % (Auto) 0.3 % Neut # (Auto) 9.61 H (1.40-6.50) K/uL Lymph # (Auto) 1.72 (1.20-3.40) K/uL [place] # (Auto) 2.02 H (0.11-0.59) K/uL Eos # (Auto) 0.00 (0.00-0.50) K/uL Baso # (Auto) 0.04 (0.00-0.20) K/uL Immature Gran # (Auto) 0.06 (0.01-0.20) K/uL Sodium 142 (136-145) mmol/L Potassium 4.4 (3.5-5.1) mmol/L Chloride 111 H (98-107) mmol/L Carbon Dioxide 26 (21-32) mmol/L Anion Gap 5 (3-11) BUN 18 (6-23) mg/dl Creatinine 0.49 L (0.6-1.2) mg/dl Est Cr Clr Drug Dosing 81.7 ml/min Est GFR ( Amer) 102.2 ml/min Est GFR (Non-Af Amer) 88.2 ml/min BUN/Creatinine Ratio 36.7 H (10-20) Glucose 117 H (70-99(Fasting)) mg/dl Calcium 8.6 (8.6-10.3) mg/dl Magnesium 1.8 (1.7-2.4) mg/dl 25-OH Vitamin D Total 31.7 (30-100) ng/ml Diagnostic Findings Hip X-Ray 04/12/23 00:00 INTRAOPERATIVE RADIOGRAPHS CLINICAL HISTORY: Open reduction and internal fixation of the right proximal femur. Fluoro time: 79 seconds Ka,r: 16.38 mGy FINDINGS: 4 spot fluoroscopic views of the right hip are correlated with radiographs dated 04/12/2023. Intertrochanteric and intramedullary nails have been placed transfixing an intertrochanteric fracture. Near anatomic alignment is restored. There is persistent medial displacement of the lesser trochanter. A single cortical lag screw transfixes the distal intramedullary nail. Overlying soft tissue edema is observed. IMPRESSION: Intraoperative images from open reduction and internal fixation of the right proximal femur. Electronically signed by: Anish Whitaker M.D. 04/12/2023 5:15 PM Hip X-Ray 04/12/23 17:05 XR hip RT min 2V CLINICAL HISTORY: Post-Operative implant position. Right hip fracture. COMPARISON STUDY: Right hip 04/12/2023. FINDINGS: Status post internal fixation of the right femoral intertrochanteric fracture with a proximal femoral intramedullary tanner and interlocking femoral neck pin. The hardware is intact. Alignment is near-anatomic. No dislocation. Skin kim are in place. IMPRESSION: Postoperative changes within the right femur as described above. No evidence for hardware complication. ACT 112: Negative or not required by law. Electronically signed by: Bryce Dougherty M.D. 04/12/2023 7:13 PM (1) Hip fracture Encounter type: initial encounter Fracture type: closed Laterality: right Qualified Code(s): S72.001A - Fracture of unspecified part of neck of right femur, initial encounter for closed fracture
--- NOTE | 2023-04-13 10:43 | Hospitalist Progress Note ---
Date of Service April 13, 2023 Assessment & Plan (1) Hip fracture: Plan: 87yo female presenting from home after a ground level fall resulting in right hip fracture. Age-related osteoporosis with current pathological fracture, right femur Now s/p ORIF of right hip on 04/12-postop recovery going well Hemoglobin slight drop to 9.4 with acute blood loss anemia from hip fracture Continue postoperative pain control Remove Gil catheter at nurse driven protocol Follow CBC, BMP On Eliquis for DVT prophylaxis Appreciate orthopedic management Vitamin D level normal at 31 (2) Atrial fibrillation with rapid ventricular response: Plan: Permanent atrial fibrillation at least for the last 3 to 4 months With some tachycardia now improving secondary to some acute blood loss anemia and recent hip surgery She was scheduled as an outpatient to have a cardioversion performed on 04/13/23. This was canceled and will need to be rescheduled in 3 to 4 weeks after she is back on Eliquis consistently -Resume Eliquis on 04/13 -Continue Metoprolol -Continue to monitor on telemetry for rate control (3) (HFpEF) heart failure with preserved ejection fraction: Plan: Well compensated. Was admitted in January 2023 for acute on chronic HFpEF secondary to rapid atrial fibrillation Last echo 03/01/23 with EF of 50-55%, no regional WMA She is euvolemic. She has chronic venous stasis changes of the legs bilaterally with trace pitting edema -Continue Metoprolol for rate control -Monitor for volume overload -Continue home Lasix -Monitor BMP and magnesium and replace as needed-give 1 g of IV magnesium today (4) Chronic diarrhea: Plan: Chronic, takes Imodium as needed (5) Hx of pulmonary embolus: Plan: Continue Eliquis (6) Acute blood loss anemia: Plan: As noted above, secondary to hip fracture Hemoglobin 9.4 down from 11.7 on admission Follow CBC No need for transfusion at this point (7) Anxiety: Plan: Continue home escitalopram and venlafaxine (8) Hypertension: Plan: Blood pressures are controlled She is on metoprolol mostly for rate control of her atrial fibrillation Continue Lasix (9) Osteoporosis: Plan: Vitamin D levels are normal With osteoporotic related hip fracture Follow-up as an outpatient Plan DVT prophylaxis-Eliquis, SCDs Disposition-continued stay on PCU, will eventually need rehab placement in the next 2 to 3 days Admission and Anticipated Discharge Date Admission Date: April 12, 2023 Subjective Patient has some pain in the right hip but overall feels much improved. Denies chest pains or shortness of breath. She did not eat breakfast because she does not like eggs. Telemetry with atrial fibrillation with rates in the 100s to 120s overnight but now down in the 80s after receiving morning metoprolol Physical Exam Constitutional: WD/WN, vitals as above Neck: trachea midline, no thyromegaly Respiratory: normal respiratory effort, lungs clear to auscultation Cardiovascular: Rate/Rhythm: regular rate and + irregularly irregular Heart Sounds: no murmur Extremities: + edema (Trace edema of legs chronic venous stasis changes) Chest (Breasts): Chest: normal inspection of chest Gastrointestinal (Abdomen): normal bowel sounds, soft, nontender, no hepatosplenomegaly Musculoskeletal: Extremities: + extremities abnormal to inspection (Right hip with dressings clean dry and intact), no cyanosis and no clubbing Skin: no rashes, warm and dry Neurologic: moves all extremities and awake; no focal motor deficits Psychiatric: A+Ox3, euthymic affect Results & Data Results & Data Vital Signs (Past 12 Hours) Vital Signs Temp Pulse Resp BP Pulse Ox O2 Del Method O2 Flow Rate 04/13/23 07:35 36.5 C 114 H 18 120/77 97 Oxymask 2 04/13/23 03:45 36.5 C 106 H 18 111/64 95 Nasal Cannula 2 04/12/23 23:14 108 H 17 97/61 L 99 Nasal Cannula 2 Laboratory Results CBC, BMP, magnesium level, and vitamin D level reviewed PG Care Time/CCT Total # of Minutes Spent Total Time Spent with Patient: Total time spent is greater than 50% in coordination of care (as documented) at patient's floor/unit and/or counseling patient: Coding Level of Care Code 75556 SUB INP/OBS CARE 3/50MIN Diagnoses Hip fracture S72.001A Encounter type: initial encounter Fracture type: closed Laterality: right Atrial fibrillation with rapid ventricular response I48.91 (HFpEF) heart failure with preserved ejection fraction I50.30 Chronic diarrhea K52.9 Hx of pulmonary embolus Z86.711 Acute blood loss anemia D62 Anxiety F41.9 Hypertension I10 Osteoporosis M81.0 (1) Hip fracture Encounter type: initial encounter Fracture type: closed Laterality: right Qualified Code(s): S72.001A - Fracture of unspecified part of neck of right femur, initial encounter for closed fracture
[2023-04-13] MEDS: ESCITALOPRAM OXALATE 10 MG TAB PO SCH (20:04)
--- NOTE | 2023-04-13 22:48 | Electrocardiogram Report ---
Test Reason : Blood Pressure : / mmHG Vent. Rate : 117 BPM Atrial Rate : 000 BPM P-R Int : 000 ms QRS Dur : 074 ms QT Int : 402 ms P-R-T Axes : 000 070 -41 degrees QTc Int : 560 ms Atrial fibrillation with rapid ventricular response with premature ventricular or aberrantly conducte d complexes Low voltage QRS Nonspecific ST and T wave abnormality Abnormal ECG When compared with ECG of 01-MAR-2023 12:01, No significant change was found Confirmed by Broderick Dai ([id number]) on 04/13/2023 10:48:28 PM Referred By: REFERRED SELF Confirmed By:Broderick Dai
[2023-04-14 06:40] LABS: Basophils # (auto) 0.06 K/uL (0.00-0.20); Basophils % (auto) 0.5 %; Eosinophils # (auto) 0.09 K/uL (0.00-0.50); Eosinophils % (auto) 0.7 %; Hematocrit (blood only) 26.9 % (37.0-47.0); Hemoglobin 8.5 g/dl (12.0-16.0); Immature Granulocytes # (auto) 0.05 K/uL (0.01-0.20); Immature Granulocytes % (auto) 0.4 %; Lymphocytes # (auto) 2.44 K/uL (1.20-3.40); Lymphocytes % (auto) 20.2 %; Mean Corpuscular Hemoglobin 27.8 pg (25.0-34.0); Mean Corpuscular Hgb Conc 31.6 g/dL (32.0-36.0); Mean Corpuscular Volume 87.9 fL (80.0-100.0); Mean Platelet Volume 10.3 fL (9.4-12.4); Monocytes # (auto) 1.84 K/uL (0.11-0.59); Monocytes % (auto) 15.2 %; Neutrophils # (auto) 7.62 K/uL (1.40-6.50); Platelet Count 513 K/uL (130-400); RDW Coefficient of Variation 16.1 % (11.5-14.5); RDW Standard Deviation 51.3 fL (36.4-46.3); Red Blood Count 3.06 M/uL (4.20-5.40)
[2023-04-14 06:58] LABS: BUN Creatinine Ratio 36.1 (10-20); Calcium 8.9 mg/dl (8.6-10.3); Creatinine Clr Calc Pharmacy 65.6 ml/min; Est GFR (African American) 95.1 ml/min; Est GFR (Non-African American) 82.1 ml/min; Magnesium 1.9 mg/dl (1.7-2.4)
[2023-04-14] MEDS: CHOLECALCIFEROL 25 MCG (1000 UNITS) TAB PO SCH (08:07)
[2023-04-14] MEDS: APIXABAN 5 MG TABLET PO SCH ×2 (08:07→21:10)
[2023-04-14] MEDS: METOPROLOL SUCC 50MG EXT REL TAB PO SCH (08:07)
[2023-04-14] MEDS: VENLAFAXINE HCL XR 37.5 MG CAPXR PO SCH (08:07)
[2023-04-14] MEDS: POTASSIUM CHLORIDE CRTAB 20 MEQ TABCR PO SCH (08:08)
[2023-04-14] MEDS: SILVER SULFADIAZINE 1% CR 50 GM JAR TOP SCH (08:08)
[2023-04-14] MEDS: FUROSEMIDE 40 MG TAB PO SCH (08:08)
[2023-04-14] MEDS: ACETAMINOPHEN 500 MG TAB PO PRN ×2 (08:39→21:14)
[2023-04-14] MEDS: traMADol HCL 50 MG TABLET PO PRN (08:40)
--- NOTE | 2023-04-14 11:07 | Orthopedic Progress Note ---
Date of Service April 14, 2023 Assessment & Plan (1) Hip fracture: Plan: Patient is post op day #2, s/p a right hip ORIF trochanteric femur fracture with Dr. Cunningham 04/12/23 -Patient to eat as nutrition is important for wound healing. Consider Ensure or other protein shakes as nutritional supplement. -She will be weightbearing as tolerated on the right leg with walker and assistance -She will follow up in our office in 2 weeks for staple removal -Dressings may be changed today and as needed when they are saturated. -Continue with ice to the right hip prn -Pain control per primary -DVT prophylaxis per primary team -CM d/c planning, recommend placement for rehabilitation -We will continue to follow post operatively Admission and Anticipated Discharge Date Admission Date: April 12, 2023 Subjective Postop day 2 following open duction internal fixation right intertrochanteric femur fracture. Patient reports she still having fair amount of pain in her hip. She did get out of bed with physical therapy yesterday but was uncomfortable. She says she just wants to feel back to normal, get her teeth brushed and get cleaned up. Physical Exam Physical Exam: Exam she is alert and oriented x 3, appropriate, but a little sad. Right hip exam reveals the patient's dressings to have mild serosanguineous drainage. No redness or evidence of infection. Mild swelling over the left hip. Distally she is neurovascularly intact. Results & Data Vital Signs (Past 12 Hours) Vital Signs Temp Pulse Resp BP Pulse Ox O2 Del Method O2 Flow Rate 04/14/23 07:18 37.0 C 93 H 16 101/63 94 Nasal Cannula 2 04/14/23 03:47 36.4 C L 108 H 16 103/63 94 Nasal Cannula 2 04/13/23 23:33 36.9 C 96 H 17 95/57 L 97 Room Air (1) Hip fracture Encounter type: initial encounter Fracture type: closed Laterality: right Qualified Code(s): S72.001A - Fracture of unspecified part of neck of right femur, initial encounter for closed fracture
--- NOTE | 2023-04-14 14:50 | Hospitalist Progress Note ---
Date of Service April 14, 2023 Assessment & Plan (1) Hip fracture: Plan: 87yo female presenting from home after a ground level fall resulting in right hip fracture. Age-related osteoporosis with current pathological fracture, right femur Now s/p ORIF of right hip on 04/12-postop recovery going well Hemoglobin slight drop to 8.5 with acute blood loss anemia from hip fracture Continue postoperative pain control Remove Gil catheter at nurse driven protocol Follow CBC, BMP On Eliquis for DVT prophylaxis Appreciate orthopedic management Vitamin D level normal at 31 (2) Atrial fibrillation with rapid ventricular response: Plan: Permanent atrial fibrillation at least for the last 3 to 4 months With some tachycardia now improving secondary to some acute blood loss anemia and recent hip surgery She was scheduled as an outpatient to have a cardioversion performed on 04/13/23. This was canceled and will need to be rescheduled in 3 to 4 weeks after she is back on Eliquis consistently -Resume Eliquis on 04/13 -Continue Metoprolol -Continue to monitor on telemetry for rate control (3) (HFpEF) heart failure with preserved ejection fraction: Plan: Well compensated. Was admitted in January 2023 for acute on chronic HFpEF secondary to rapid atrial fibrillation Last echo 03/01/23 with EF of 50-55%, no regional WMA She is euvolemic. She has chronic venous stasis changes of the legs bilaterally with trace pitting edema -Continue Metoprolol for rate control -Monitor for volume overload -Continue home Lasix -Monitor BMP and magnesium and replace as needed (4) Chronic diarrhea: Plan: Chronic, takes Imodium as needed (5) Hx of pulmonary embolus: Plan: Continue Eliquis (6) Acute blood loss anemia: Plan: As noted above, secondary to hip fracture Hemoglobin 9.4 down from 11.7 on admission Follow CBC No need for transfusion at this point (7) Anxiety: Plan: Continue home escitalopram and venlafaxine (8) Hypertension: Plan: Blood pressures are controlled She is on metoprolol mostly for rate control of her atrial fibrillation Continue Lasix (9) Osteoporosis: Plan: Vitamin D levels are normal With osteoporotic related hip fracture Follow-up as an outpatient Plan DVT prophylaxis-Eliquis, SCDs Disposition-continued stay on PCU, will eventually need rehab placement in the next 2 to 3 days Patient complains of "dizziness". Sounds more like vertigo since it happens when she moves her head from [id number]. Ordered orthostatic vital signs. PT and OT consulted. 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 Admission and Anticipated Discharge Date Admission Date: April 12, 2023 Subjective Patient complains of feeling dizzy. On further questioning, it sounded like she has vertigo when she moves her head from [id number]. Review of Systems Review of Systems: All systems reviewed & are unremarkable except as noted in Subjective Physical Exam Physical Exam: General: Awake, conversant Heart: S1, S2/irregular rhythm, rate controlled, no murmur rubs or gallops Lungs: Clear to auscultation bilaterally. Normal effort Abdomen: Soft/nontender/nondistended. No hepatosplenomegaly Extremities: No clubbing/cyanosis. No edema Behavior: Appropriate, cooperative Results & Data Results & Data Vital Signs (Past 12 Hours) Vital Signs Temp Pulse Resp BP Pulse Ox O2 Del Method O2 Flow Rate 04/14/23 11:35 36.6 C 91 H 16 97/64 L 93 Room Air 04/14/23 07:18 37.0 C 93 H 16 101/63 94 Nasal Cannula 2 04/14/23 03:47 36.4 C L 108 H 16 103/63 94 Nasal Cannula 2 Laboratory Results Abnormal lab results 04/14/23 Range/Units 06:10 WBC 12.10 H (4.8-10.8) K/ul RBC 3.06 L (4.20-5.40) M/uL Hgb 8.5 L (12.0-16.0) g/dl Hct 26.9 L (37.0-47.0) % MCHC 31.6 L (32.0-36.0) g/dL RDW Std Deviation 51.3 H (36.4-46.3) fL RDW Coeff of Nimesh 16.1 H (11.5-14.5) % Plt Count 513 H (130-400) K/uL Neut # (Auto) 7.62 H (1.40-6.50) K/uL [place] # (Auto) 1.84 H (0.11-0.59) K/uL BUN/Creatinine Ratio 36.1 H (10-20) Glucose 104 H (70-99(Fasting)) mg/dl PG Care Time/CCT Total # of Minutes Spent Total Time Spent with Patient: Total time spent is greater than 50% in coordination of care (as documented) at patient's floor/unit and/or counseling patient: Coding Level of Care Code 01541 SUB INP/OBS CARE 2MIN Diagnoses Hip fracture S72.001A Encounter type: initial encounter Fracture type: closed Laterality: right Atrial fibrillation with rapid ventricular response I48.91 (HFpEF) heart failure with preserved ejection fraction I50.30 Chronic diarrhea K52.9 Hx of pulmonary embolus Z86.711 Acute blood loss anemia D62 Anxiety F41.9 Hypertension I10 Osteoporosis M81.0 (1) Hip fracture Encounter type: initial encounter Fracture type: closed Laterality: right Qualified Code(s): S72.001A - Fracture of unspecified part of neck of right femur, initial encounter for closed fracture
[2023-04-14] MEDS: POLYETHYLENE (MIRALAX) 17 GM PACK PO SCH (15:54)
[2023-04-14] MEDS: ESCITALOPRAM OXALATE 10 MG TAB PO SCH (21:10)
[2023-04-14] MEDS: DOCUSATE SODIUM 100 MG CAP PO SCH (23:23)
[2023-04-15] MEDS: traMADol HCL 50 MG TABLET PO PRN ×2 (05:36→20:11)
[2023-04-15] MEDS: APIXABAN 5 MG TABLET PO SCH ×2 (08:27→20:03)
[2023-04-15] MEDS: VENLAFAXINE HCL XR 37.5 MG CAPXR PO SCH (08:28)
[2023-04-15] MEDS: POTASSIUM CHLORIDE CRTAB 20 MEQ TABCR PO SCH (08:28)
[2023-04-15] MEDS: FUROSEMIDE 40 MG TAB PO SCH (08:28)
[2023-04-15] MEDS: CHOLECALCIFEROL 25 MCG (1000 UNITS) TAB PO SCH (08:28)
[2023-04-15] MEDS: DOCUSATE SODIUM 100 MG CAP PO SCH ×2 (08:28→20:03)
[2023-04-15] MEDS: METOPROLOL SUCC 50MG EXT REL TAB PO SCH (08:28)
[2023-04-15] MEDS: SILVER SULFADIAZINE 1% CR 50 GM JAR TOP SCH (08:28)
[2023-04-15] MEDS: POLYETHYLENE (MIRALAX) 17 GM PACK PO SCH (08:29)
[2023-04-15] MEDS: ACETAMINOPHEN 500 MG TAB PO PRN (08:48)
--- NOTE | 2023-04-15 13:19 | Hospitalist Progress Note ---
Date of Service April 15, 2023 Assessment & Plan (1) Hip fracture: Plan: 87yo female presenting from home after a ground level fall resulting in right hip fracture. Age-related osteoporosis with current pathological fracture, right femur Now s/p ORIF of right hip on 04/12-postop recovery going well Hemoglobin slight drop to 8.5 with acute blood loss anemia from hip fracture Continue postoperative pain control Remove Gil catheter at nurse driven protocol Follow CBC, BMP On Eliquis for DVT prophylaxis Appreciate orthopedic management Vitamin D level normal at 31 (2) Atrial fibrillation with rapid ventricular response: Plan: Permanent atrial fibrillation at least for the last 3 to 4 months With some tachycardia now improving secondary to some acute blood loss anemia and recent hip surgery She was scheduled as an outpatient to have a cardioversion performed on 04/13/23. This was canceled and will need to be rescheduled in 3 to 4 weeks after she is back on Eliquis consistently -Resumed Eliquis on 04/13 -Continue Metoprolol -Continue to monitor on telemetry for rate control (3) (HFpEF) heart failure with preserved ejection fraction: Plan: Well compensated. Was admitted in January 2023 for acute on chronic HFpEF secondary to rapid atrial fibrillation Last echo 03/01/23 with EF of 50-55%, no regional WMA She is euvolemic. She has chronic venous stasis changes of the legs bilaterally with trace pitting edema -Continue Metoprolol for rate control -Monitor for volume overload -Continue home Lasix -Monitor BMP and magnesium and replace as needed (4) Chronic diarrhea: Plan: Chronic, takes Imodium as needed (5) Hx of pulmonary embolus: Plan: Continue Eliquis (6) Acute blood loss anemia: Plan: As noted above, secondary to hip fracture Hemoglobin 9.4 down from 11.7 on admission Follow CBC No need for transfusion at this point (7) Anxiety: Plan: Continue home escitalopram and venlafaxine (8) Hypertension: Plan: Blood pressures are controlled She is on metoprolol mostly for rate control of her atrial fibrillation Continue Lasix (9) Osteoporosis: Plan: Vitamin D levels are normal With osteoporotic related hip fracture Follow-up as an outpatient Plan DVT prophylaxis-Eliquis, SCDs Disposition-will eventually need rehab placement No more dizziness. Orthostatic vital signs unremarkable. Admission and Anticipated Discharge Date Admission Date: April 12, 2023 Subjective Patient feels well. Denies chest pain or shortness of breath. No dizziness today. No vertigo today. Review of Systems Review of Systems: All systems reviewed & are unremarkable except as noted in Subjective Physical Exam Physical Exam: General: Awake, conversant Heart: S1, S2/irregular rhythm, rate controlled, no murmur rubs or gallops Lungs: Clear to auscultation bilaterally. Normal effort Abdomen: Soft/nontender/nondistended. No hepatosplenomegaly Extremities: No clubbing/cyanosis. No edema Behavior: Appropriate, cooperative Results & Data Results & Data Vital Signs (Past 12 Hours) Vital Signs Temp Pulse Resp BP Pulse Ox O2 Del Method 04/15/23 12:30 36.6 C 99 H 17 101/66 94 Room Air 04/15/23 11:26 36.6 C 106 H 16 95/60 L 90 Room Air 04/15/23 07:27 36.7 C 101 H 16 106/63 90 Room Air 04/15/23 03:40 36.6 C 99 H 16 101/65 90 Room Air PG Care Time/CCT Total # of Minutes Spent Total Time Spent with Patient: Total time spent is greater than 50% in coordination of care (as documented) at patient's floor/unit and/or counseling patient: Coding Level of Care Code 29135 SUB INP/OBS CARE 2/35MIN Diagnoses Hip fracture S72.001A Encounter type: initial encounter Fracture type: closed Laterality: right Atrial fibrillation with rapid ventricular response I48.91 (HFpEF) heart failure with preserved ejection fraction I50.30 Chronic diarrhea K52.9 Hx of pulmonary embolus Z86.711 Acute blood loss anemia D62 Anxiety F41.9 Hypertension I10 Osteoporosis M81.0 (1) Hip fracture Encounter type: initial encounter Fracture type: closed Laterality: right Qualified Code(s): S72.001A - Fracture of unspecified part of neck of right femur, initial encounter for closed fracture
[2023-04-15] MEDS: ESCITALOPRAM OXALATE 10 MG TAB PO SCH (20:03)
[2023-04-16] MEDS: ACETAMINOPHEN 500 MG TAB PO PRN (09:49)
[2023-04-16] MEDS: traMADol HCL 50 MG TABLET PO PRN (09:49)
[2023-04-16] MEDS: CHOLECALCIFEROL 25 MCG (1000 UNITS) TAB PO SCH (09:50)
[2023-04-16] MEDS: APIXABAN 5 MG TABLET PO SCH ×2 (09:50→21:39)
[2023-04-16] MEDS: POLYETHYLENE (MIRALAX) 17 GM PACK PO SCH (09:50)
[2023-04-16] MEDS: DOCUSATE SODIUM 100 MG CAP PO SCH ×2 (09:50→21:38)
[2023-04-16] MEDS: VENLAFAXINE HCL XR 37.5 MG CAPXR PO SCH (09:51)
[2023-04-16] MEDS: POTASSIUM CHLORIDE CRTAB 20 MEQ TABCR PO SCH (09:51)
[2023-04-16] MEDS: FUROSEMIDE 40 MG TAB PO SCH (09:51)
[2023-04-16] MEDS: METOPROLOL SUCC 50MG EXT REL TAB PO SCH (09:51)
[2023-04-16] MEDS: SILVER SULFADIAZINE 1% CR 50 GM JAR TOP SCH (09:52)
--- NOTE | 2023-04-16 09:55 | Orthopedic Progress Note ---
Date of Service April 16, 2023 Assessment & Plan (1) Hip fracture: Plan: Patient is post op day #4, s/p a right hip ORIF trochanteric femur fracture with Dr. Cunningham 04/12/23 -Patient to eat as nutrition is important for wound healing. Consider Ensure or other protein shakes as nutritional supplement. -She will be weightbearing as tolerated on the right leg with walker and assistance -She will follow up in our office in 2 weeks for staple removal, scheduled with Dr Cunningham 04/27 @1115 -Dressing changed today. Nursing may reinforce as needed. -Patient has rash in skin fold, continue to monitor and would recommend sponge baths for proper hygiene and hydrocortisone cream if getting worse -Continue with ice to the right hip prn -Pain control per primary -Continue PT/OT -DVT prophylaxis per primary team -CM d/c planning, recommend placement for rehabilitation -We will continue to follow post operatively Admission and Anticipated Discharge Date Admission Date: April 12, 2023 Subjective Pt seen and examined bedside. She is having 8/10 pain. Physical Exam Physical Exam: Laying comfortable. With assistance of nurse patient was rolled to examine incision. Moderate bruising and swelling expected after surgery. Dressings taken down to reveal incisions well aprox, no signs of infection or dehiscence. Thigh is soft and compressible. Cleanses incisions with saline, and redressed with xeroform, 4x4s and tegaderm. Patient has rash in skin fold. Patient able to wiggle toes and pump ankles. Calf soft and non tender. DF/PF strength in tact. Able to tolerate passive SLR Results & Data Vital Signs (Past 12 Hours) Vital Signs Temp Pulse Pulse Resp BP BP Pulse Ox 04/16/23 07:58 36.6 C 108 H 18 118/74 92 04/16/23 07:00 101 H 04/16/23 04:22 36.8 C 96 H 20 110/68 93 04/16/23 01:13 109 H 04/16/23 00:03 36.4 C L 102 H 20 107/70 92 04/15/23 23:05 93 H O2 Del Method 04/16/23 07:58 Room Air 04/16/23 07:00 04/16/23 04:22 Room Air 04/16/23 01:13 04/16/23 00:03 Room Air 04/15/23 23:05 (1) Hip fracture Encounter type: initial encounter Fracture type: closed Laterality: right Qualified Code(s): S72.001A - Fracture of unspecified part of neck of right femur, initial encounter for closed fracture
--- NOTE | 2023-04-16 13:10 | Hospitalist Progress Note ---
Date of Service April 16, 2023 Assessment & Plan (1) Hip fracture: Plan: 87yo female presenting from home after a ground level fall resulting in right hip fracture. Age-related osteoporosis with current pathological fracture, right femur Now s/p ORIF of right hip on 04/12-postop recovery going well Hemoglobin slight drop to 8.5 with acute blood loss anemia from hip fracture Continue postoperative pain control Remove Gil catheter at nurse driven protocol Follow CBC, BMP On Eliquis for DVT prophylaxis Appreciate orthopedic management Vitamin D level normal at 31 (2) Atrial fibrillation with rapid ventricular response: Plan: Permanent atrial fibrillation at least for the last 3 to 4 months With some tachycardia now improving secondary to some acute blood loss anemia and recent hip surgery She was scheduled as an outpatient to have a cardioversion performed on 04/13/23. This was canceled and will need to be rescheduled in 3 to 4 weeks after she is back on Eliquis consistently -Resumed Eliquis on 04/13 -Continue Metoprolol -Continue to monitor on telemetry for rate control (3) (HFpEF) heart failure with preserved ejection fraction: Plan: Well compensated. Was admitted in January 2023 for acute on chronic HFpEF secondary to rapid atrial fibrillation Last echo 03/01/23 with EF of 50-55%, no regional WMA She is euvolemic. She has chronic venous stasis changes of the legs bilaterally with trace pitting edema -Continue Metoprolol for rate control -Monitor for volume overload -Continue home Lasix -Monitor BMP and magnesium and replace as needed (4) Chronic diarrhea: Plan: Chronic, takes Imodium as needed (5) Hx of pulmonary embolus: Plan: Continue Eliquis (6) Acute blood loss anemia: Plan: As noted above, secondary to hip fracture Hemoglobin 9.4 down from 11.7 on admission No need for transfusion at this point (7) Anxiety: Plan: Continue home escitalopram and venlafaxine (8) Hypertension: Plan: Blood pressures are controlled She is on metoprolol mostly for rate control of her atrial fibrillation Continue Lasix (9) Osteoporosis: Plan: Vitamin D levels are normal With osteoporotic related hip fracture Follow-up as an outpatient Plan DVT prophylaxis-Eliquis, SCDs Disposition-will eventually need rehab placement. PT/OT and case management on board Admission and Anticipated Discharge Date Admission Date: April 12, 2023 Subjective Patient feels well. Denies chest pain or shortness of breath. Denies palpitations. Denies dizziness. She says she worked with physical therapy today and it was "rough". Review of Systems Review of Systems: All systems reviewed & are unremarkable except as noted in Subjective Physical Exam Physical Exam: General: Awake, conversant Heart: S1, S2/irregular rhythm, rate controlled, no murmur rubs or gallops Lungs: Clear to auscultation bilaterally. Normal effort Abdomen: Soft/nontender/nondistended. No hepatosplenomegaly Extremities: No clubbing/cyanosis. No edema Behavior: Appropriate, cooperative Results & Data Results & Data Vital Signs (Past 12 Hours) Vital Signs Temp Pulse Pulse Resp BP Pulse Ox O2 Del Method 04/16/23 11:29 36.4 C L 80 18 96/57 L 93 Room Air 04/16/23 07:58 36.6 C 108 H 18 118/74 92 Room Air 04/16/23 07:00 101 H 04/16/23 04:22 36.8 C 96 H 20 110/68 93 Room Air 04/16/23 01:13 109 H PG Care Time/CCT Total # of Minutes Spent Total Time Spent with Patient: Total time spent is greater than 50% in coordination of care (as documented) at patient's floor/unit and/or counseling patient: Coding Level of Care Code 47011 SUB INP/OBS CARE 2/35MIN Diagnoses Hip fracture S72.001A Encounter type: initial encounter Fracture type: closed Laterality: right Atrial fibrillation with rapid ventricular response I48.91 (HFpEF) heart failure with preserved ejection fraction I50.30 Chronic diarrhea K52.9 Hx of pulmonary embolus Z86.711 Acute blood loss anemia D62 Anxiety F41.9 Hypertension I10 Osteoporosis M81.0 (1) Hip fracture Encounter type: initial encounter Fracture type: closed Laterality: right Qualified Code(s): S72.001A - Fracture of unspecified part of neck of right femur, initial encounter for closed fracture
[2023-04-16] MEDS ORDERED: oxyCODONE HCL IR 5 MG TAB (IMMEDIATE RELEASE) PO STA (13:21)
[2023-04-16] MEDS: ESCITALOPRAM OXALATE 10 MG TAB PO SCH (21:39)
[2023-04-17] MEDS: ACETAMINOPHEN 500 MG TAB PO PRN ×2 (02:35→09:26)
[2023-04-17] MEDS ORDERED: METOPROLOL SUCC 25MG EXT REL TAB PO SCH (09:00)
[2023-04-17] MEDS: FUROSEMIDE 40 MG TAB PO SCH (09:20)
[2023-04-17] MEDS: CHOLECALCIFEROL 25 MCG (1000 UNITS) TAB PO SCH (09:20)
[2023-04-17] MEDS: APIXABAN 5 MG TABLET PO SCH ×2 (09:20→21:21)
[2023-04-17] MEDS: VENLAFAXINE HCL XR 37.5 MG CAPXR PO SCH (09:20)
[2023-04-17] MEDS: DOCUSATE SODIUM 100 MG CAP PO SCH ×2 (09:21→21:28)
[2023-04-17] MEDS: SILVER SULFADIAZINE 1% CR 50 GM JAR TOP SCH (09:21)
[2023-04-17] MEDS: POLYETHYLENE (MIRALAX) 17 GM PACK PO SCH (09:24)
[2023-04-17] MEDS: POTASSIUM CHLORIDE CRTAB 20 MEQ TABCR PO SCH (09:27)
[2023-04-17] MEDS: traMADol HCL 50 MG TABLET PO PRN ×2 (09:27→21:20)
--- NOTE | 2023-04-17 10:04 | Orthopedic Progress Note ---
Date of Service April 17, 2023 Assessment & Plan (1) Hip fracture: Plan: Patient is post op day #5, s/p a right hip ORIF trochanteric femur fracture with Dr. Cunningham 04/12/23 -Patient to eat as nutrition is important for wound healing. Consider Ensure or other protein shakes as nutritional supplement. -She will be weightbearing as tolerated on the right leg with walker and assistance -She will follow up in our office in 2 weeks for staple removal, scheduled with Dr Cunningham 04/27 @1115 -Nursing may reinforce/change dressings as needed. -Patient has rash in skin fold, continue to monitor and would recommend sponge baths for proper hygiene and hydrocortisone cream if getting worse -Continue with ice to the right hip prn -Pain control per primary -Continue PT/OT -DVT prophylaxis per primary team -CM d/c planning, recommend placement for rehabilitation -We will continue to follow post operatively Admission and Anticipated Discharge Date Admission Date: April 12, 2023 Subjective This 87 yo F is 5 days s/p Right hip fracture fixation with Troch nailing. She is currently sitting up in bed eating breakfast. She state that she has not been able to partake in PT/OT due to weakness and very limited ROM of her Right LE. Currently she denies CP, SOB, nausea, vomiting, fever, chills, sweats, Numbness/tingling in the Right LE. She states that she has discussed transfer to a rehab facility with case management. Review of Systems Review of Systems: All systems reviewed & are unremarkable except as noted in Subjective Physical Exam Physical Exam: Right hip: dressing are clean, dry, intact and left in place. Patient is unable to perform a SLRT but is able to dorsi/plantar flex foot. She tolerates light passive hip flexion near 80 degrees but has discomfort with passive internal and external rotation. Log rolling also causes discomfort at proximal incision site. She is NV intact. Results & Data Vital Signs (Past 12 Hours) Vital Signs Temp Pulse Resp BP Pulse Ox O2 Del Method 04/17/23 07:58 36.8 C 112 H 16 127/81 92 Room Air 04/17/23 04:02 36.8 C 111 H 20 109/68 93 Room Air 04/16/23 23:37 36.5 C 101 H 20 113/67 92 Room Air (1) Hip fracture Encounter type: initial encounter Fracture type: closed Laterality: right Qualified Code(s): S72.001A - Fracture of unspecified part of neck of right femur, initial encounter for closed fracture
--- NOTE | 2023-04-17 15:36 | Hospitalist Progress Note ---
Date of Service April 17, 2023 Assessment & Plan (1) Hip fracture: Plan: 87yo female presenting from home after a ground level fall resulting in right hip fracture. Age-related osteoporosis with current pathological fracture, right femur Now s/p ORIF of right hip on 04/12-postop recovery going well Hemoglobin slight drop to 8.5 with acute blood loss anemia from hip fracture Continue postoperative pain control Remove Gil catheter at nurse driven protocol Follow CBC, BMP On Eliquis for DVT prophylaxis Appreciate orthopedic management Vitamin D level normal at 31 (2) Atrial fibrillation with rapid ventricular response: Plan: Permanent atrial fibrillation at least for the last 3 to 4 months With some tachycardia now improving secondary to some acute blood loss anemia and recent hip surgery She was scheduled as an outpatient to have a cardioversion performed on 04/13/23. This was canceled and will need to be rescheduled in 3 to 4 weeks after she is back on Eliquis consistently -Resumed Eliquis on 04/13 Rate is noted to be creeping up Gave her 125 mg of metoprolol which is a higher dose this morning Rate seems to be high still. Will increase to 150 mg tomorrow. (3) (HFpEF) heart failure with preserved ejection fraction: Plan: Well compensated. Was admitted in January 2023 for acute on chronic HFpEF secondary to rapid atrial fibrillation Last echo 03/01/23 with EF of 50-55%, no regional WMA She is euvolemic. She has chronic venous stasis changes of the legs bilaterally with trace pitting edema -Continue Metoprolol for rate control -Monitor for volume overload -Continue home Lasix -Monitor BMP and magnesium and replace as needed (4) Chronic diarrhea: Plan: Chronic, takes Imodium as needed (5) Hx of pulmonary embolus: Plan: Continue Eliquis (6) Acute blood loss anemia: Plan: As noted above, secondary to hip fracture Hemoglobin 9.4 down from 11.7 on admission No need for transfusion at this point (7) Anxiety: Plan: Continue home escitalopram and venlafaxine (8) Hypertension: Plan: Blood pressures are controlled She is on metoprolol mostly for rate control of her atrial fibrillation Continue Lasix (9) Osteoporosis: Plan: Vitamin D levels are normal With osteoporotic related hip fracture Follow-up as an outpatient Plan DVT prophylaxis-Eliquis, SCDs Disposition-will eventually need rehab placement. PT/OT and case management on board Admission and Anticipated Discharge Date Admission Date: April 12, 2023 Subjective Patient feels well. Denies chest pain or shortness of breath. Says that she worked better with physical therapy today Review of Systems Review of Systems: All systems reviewed & are unremarkable except as noted in Subjective Physical Exam Physical Exam: General: Awake, conversant Heart: S1, S2/irregular rhythm, slightly fast rate, no murmur rubs or gallops Lungs: Clear to auscultation bilaterally. Normal effort Abdomen: Soft/nontender/nondistended. No hepatosplenomegaly Extremities: No clubbing/cyanosis. No edema Behavior: Appropriate, cooperative Results & Data Results & Data Vital Signs (Past 12 Hours) Vital Signs Temp Pulse Resp BP Pulse Ox O2 Del Method 04/17/23 11:22 36.8 C 111 H 18 105/65 96 Room Air 04/17/23 07:58 36.8 C 112 H 16 127/81 92 Room Air 04/17/23 04:02 36.8 C 111 H 20 109/68 93 Room Air PG Care Time/CCT Total # of Minutes Spent Total Time Spent with Patient: Total time spent is greater than 50% in coordination of care (as documented) at patient's floor/unit and/or counseling patient: Coding Level of Care Code 70964 SUB INP/OBS CARE 2/35MIN Diagnoses Hip fracture S72.001A Encounter type: initial encounter Fracture type: closed Laterality: right Atrial fibrillation with rapid ventricular response I48.91 (HFpEF) heart failure with preserved ejection fraction I50.30 Chronic diarrhea K52.9 Hx of pulmonary embolus Z86.711 Acute blood loss anemia D62 Anxiety F41.9 Hypertension I10 Osteoporosis M81.0 (1) Hip fracture Encounter type: initial encounter Fracture type: closed Laterality: right Qualified Code(s): S72.001A - Fracture of unspecified part of neck of right femur, initial encounter for closed fracture
[2023-04-17] MEDS: ESCITALOPRAM OXALATE 10 MG TAB PO SCH (21:20)
[2023-04-18] MEDS: VENLAFAXINE HCL XR 37.5 MG CAPXR PO SCH (08:28)
[2023-04-18] MEDS: CHOLECALCIFEROL 25 MCG (1000 UNITS) TAB PO SCH (08:29)
[2023-04-18] MEDS: DOCUSATE SODIUM 100 MG CAP PO SCH ×2 (08:30→21:17)
[2023-04-18] MEDS: METOPROLOL SUCC 25MG EXT REL TAB PO SCH (08:30)
[2023-04-18] MEDS: FUROSEMIDE 40 MG TAB PO SCH (08:30)
[2023-04-18] MEDS: APIXABAN 5 MG TABLET PO SCH ×2 (08:30→21:17)
[2023-04-18] MEDS: POLYETHYLENE (MIRALAX) 17 GM PACK PO SCH (08:31)
[2023-04-18] MEDS: SILVER SULFADIAZINE 1% CR 50 GM JAR TOP SCH (08:31)
[2023-04-18] MEDS: POTASSIUM CHLORIDE CRTAB 20 MEQ TABCR PO SCH (08:35)
[2023-04-18] MEDS ORDERED: METOPROLOL SUCC 50MG EXT REL TAB PO SCH (09:00)
[2023-04-18] MEDS: traMADol HCL 50 MG TABLET PO PRN ×2 (09:01→21:21)
--- NOTE | 2023-04-18 15:58 | Hospitalist Progress Note ---
Date of Service April 18, 2023 Assessment & Plan (1) Hip fracture: Plan: 87yo female presenting from home after a ground level fall resulting in right hip fracture. Age-related osteoporosis with current pathological fracture, right femur Now s/p ORIF of right hip on 04/12-postop recovery going well Hemoglobin slight drop to 8.5 with acute blood loss anemia from hip fracture Continue postoperative pain control Remove Gil catheter at nurse driven protocol Follow CBC, BMP On Eliquis for DVT prophylaxis Appreciate orthopedic management Vitamin D level normal at 31 (2) Atrial fibrillation with rapid ventricular response: Plan: Permanent atrial fibrillation at least for the last 3 to 4 months With some tachycardia now improving secondary to some acute blood loss anemia and recent hip surgery She was scheduled as an outpatient to have a cardioversion performed on 04/13/23. This was canceled and will need to be rescheduled in 3 to 4 weeks after she is back on Eliquis consistently -Resumed Eliquis on 04/13 Rate was noted to be creeping up Gave her 125 mg of metoprolol which is a higher dose this morning Continue 125 mg of metoprolol (3) (HFpEF) heart failure with preserved ejection fraction: Plan: Well compensated. Was admitted in January 2023 for acute on chronic HFpEF se condary to rapid atrial fibrillation Last echo 03/01/23 with EF of 50-55%, no regional WMA She is euvolemic. She has chronic venous stasis changes of the legs bilaterally with trace pitting edema -Continue Metoprolol for rate control -Monitor for volume overload -Continue home Lasix -Monitor BMP and magnesium and replace as needed (4) Chronic diarrhea: Plan: Chronic, takes Imodium as needed (5) Hx of pulmonary embolus: Plan: Continue Eliquis (6) Acute blood loss anemia: Plan: As noted above, secondary to hip fracture Hemoglobin 9.4 down from 11.7 on admission No need for transfusion at this point (7) Anxiety: Plan: Continue home escitalopram and venlafaxine (8) Hypertension: Plan: Blood pressures are controlled She is on metoprolol mostly for rate control of her atrial fibrillation Continue Lasix (9) Osteoporosis: Plan: Vitamin D levels are normal With osteoporotic related hip fracture Follow-up as an outpatient Plan DVT prophylaxis-Eliquis, SCDs Disposition-will eventually need rehab placement. PT/OT and case management on board Admission and Anticipated Discharge Date Admission Date: April 12, 2023 Subjective Patient feels well. Denies chest pain or shortness of breath. Denies palp itation Review of Systems Review of Systems: All systems reviewed & are unremarkable except as noted in Subjective Physical Exam Physical Exam: General: Awake, conversant Heart: S1, S2/irregular rhythm, slightly fast rate, no murmur rubs or gallops Lungs: Clear to auscultation bilaterally. Normal effort Abdomen: Soft/nontender/nondistended. No hepatosplenomegaly Extremities: No clubbing/cyanosis. No edema Behavior: Appropriate, cooperative Results & Data Results & Data Vital Signs (Past 12 Hours) Vital Signs Temp Pulse Pulse Resp BP BP Pulse Ox 04/18/23 15:23 36.3 C L 100 H 20 110/62 95 04/18/23 15:16 102 H 04/18/23 11:27 36.7 C 89 20 103/66 96 04/18/23 08:30 04/18/23 08:21 36.5 C 105 H 20 126/81 92 04/18/23 07:17 87 04/18/23 04:00 36.8 C 88 20 177/72 H 92 O2 Del Method 04/18/23 15:23 Room Air 04/18/23 15:16 04/18/23 11:27 Room Air 04/18/23 08:30 Room Air 04/18/23 08:21 Room Air 04/18/23 07:17 04/18/23 04:00 Room Air PG Care Time/CCT Total # of Minutes Spent Total Time Spent with Patient: Total time spent is greater than 50% in coordination of care (as documented) at patient's floor/unit and/or counseling patient: Coding Level of Care Code 10216 SUB INP/OBS CARE 2/35MIN Diagnoses Hip fracture S72.001A Encounter type: initial encounter Fracture type: closed Laterality: right Atrial fibrillation with rapid ventricular response I48.91 (HFpEF) heart failure with preserved ejection fraction I50.30 Chronic diarrhea K52.9 Hx of pulmonary embolus Z86.711 Acute blood loss anemia D62 Anxiety F41.9 Hypertension I10 Osteoporosis M81.0 (1) Hip fracture Encounter type: initial encounter Fracture type: closed Laterality: right Qualified Code(s): S72.001A - Fracture of unspecified part of neck of right femur, initial encounter for closed fracture
[2023-04-18] MEDS: ESCITALOPRAM OXALATE 10 MG TAB PO SCH (21:17)
[2023-04-19] MEDS: FUROSEMIDE 40 MG TAB PO SCH (08:36)
[2023-04-19] MEDS: DOCUSATE SODIUM 100 MG CAP PO SCH ×2 (09:53→20:05)
[2023-04-19] MEDS: POLYETHYLENE (MIRALAX) 17 GM PACK PO SCH (09:53)
[2023-04-19] MEDS: APIXABAN 5 MG TABLET PO SCH ×2 (09:57→20:05)
[2023-04-19] MEDS: CHOLECALCIFEROL 25 MCG (1000 UNITS) TAB PO SCH (09:57)
[2023-04-19] MEDS: METOPROLOL SUCC 25MG EXT REL TAB PO SCH (09:57)
[2023-04-19] MEDS: traMADol HCL 50 MG TABLET PO PRN (09:57)
[2023-04-19] MEDS: POTASSIUM CHLORIDE CRTAB 20 MEQ TABCR PO SCH (09:57)
[2023-04-19] MEDS: VENLAFAXINE HCL XR 37.5 MG CAPXR PO SCH (09:58)
[2023-04-19] MEDS: SILVER SULFADIAZINE 1% CR 50 GM JAR TOP SCH (09:58)
--- NOTE | 2023-04-19 10:23 | Orthopedic Progress Note ---
Date of Service April 19, 2023 Assessment & Plan (1) Hip fracture: Plan: The patient was educated regarding today's findings. Conservative care measures were discussed. She was encouraged to continue with her physical therapy. She is already anticoagulated on Eliquis. Case management reports that [facility] has a bed available tomorrow. Her insurance authorization is pending. Will continue to follow while she is admitted. Admission and Anticipated Discharge Date Admission Date: April 12, 2023 Subjective This 87-year-old female seen today in her room. She is 7 days status post right hip ORIF. She just completed physical therapy prior to my arrival. Her therapist states the patient was able to walk in her room with her walker and assistance. She was able to walk approximately 10 feet total. The patient is now sitting in her bedside chair. She complains of fatigue and right hip pain. No other complaints. Physical Exam Physical Exam: General: Well-developed, elderly female, in no acute distress. Sitting in her b edside chair. Alert and conversive. Skin: Warm and dry with fair turgor. No rashes. She has extensive ecchymosis present around her right hip and buttock. Postsurgical dressings are in place. They are dry. Musculoskeletal: The patient has minimal discomfort with passive hip flexion as well as rotation and Ab/adduction. There is also mild discomfort with palpation around the right hip. She has intact motor function of her knee, ankle, and toes. Neurologic: Gross sensation is intact across the right leg by soft touch. Peripheral pulses are 2+. Results & Data Vital Signs (Past 12 Hours) Vital Signs Temp Pulse Pulse Resp BP Pulse Ox O2 Del Method 04/19/23 08:21 36.3 C L 93 H 20 108/69 93 Room Air 04/19/23 08:00 99 H 04/19/23 02:05 36.5 C 101 H 16 101/57 L 90 Room Air 04/18/23 22:58 36.5 C 99 H 16 97/61 L 92 Room Air (1) Hip fracture Encounter type: initial encounter Fracture type: closed Laterality: right Qualified Code(s): S72.001A - Fracture of unspecified part of neck of right femur, initial encounter for closed fracture
--- NOTE | 2023-04-19 15:28 | Hospitalist Progress Note ---
Date of Service April 19, 2023 Assessment & Plan (1) Hip fracture: Plan: 87yo female presenting from home after a ground level fall resulting in right hip fracture. Age-related osteoporosis with current pathological fracture, right femur Now s/p ORIF of right hip on 04/12-postop recovery going well Hemoglobin slight drop to 8.5 with acute blood loss anemia from hip fracture Continue postoperative pain control Remove Gil catheter at nurse driven protocol Follow CBC, BMP On Eliquis for DVT prophylaxis Appreciate orthopedic management Vitamin D level normal at 31 (2) Atrial fibrillation with rapid ventricular response: Plan: Permanent atrial fibrillation at least for the last 3 to 4 months With some tachycardia now improving secondary to some acute blood loss anemia and recent hip surgery She was scheduled as an outpatient to have a cardioversion performed on 04/13/23. This was canceled and will need to be rescheduled in 3 to 4 weeks after she is back on Eliquis consistently -Resumed Eliquis on 04/13 Rate was noted to be creeping up Gave her 125 mg of metoprolol which is a higher dose this morning Continue 125 mg of metoprolol, rate relatively controlled on this dose (3) (HFpEF) heart failure with preserved ejection fraction: Plan: Well compensated. Was admitted in January 2023 for acute on chronic HFpEF secondary to rapid atrial fibrillation Last echo 03/01/23 with EF of 50-55%, no regional WMA She is euvolemic. She has chronic venous stasis changes of the legs bilaterally with trace pitting edema -Continue Metoprolol for rate control -Monitor for volume overload -Continue home Lasix (4) Chronic diarrhea: Plan: Chronic, takes Imodium as needed (5) Hx of pulmonary embolus: Plan: Continue Eliquis (6) Acute blood loss anemia: Plan: As noted above, secondary to hip fracture Hemoglobin 9.4 down from 11.7 on admission No need for transfusion at this point (7) Anxiety: Plan: Continue home escitalopram and venlafaxine (8) Hypertension: Plan: Blood pressures are controlled She is on metoprolol mostly for rate control of her atrial fibrillation Continue Lasix (9) Osteoporosis: Plan: Vitamin D levels are normal With osteoporotic related hip fracture Follow-up as an outpatient Plan DVT prophylaxis-Eliquis, SCDs Disposition-will eventually need rehab placement. PT/OT and case management on board Admission and Anticipated Discharge Date Admission Date: April 12, 2023 Subjective Patient feels well. Denies any palpitations or dizziness. Review of Systems Review of Systems: All systems reviewed & are unremarkable except as noted in Subjective Physical Exam Physical Exam: General: Awake, conversant Heart: S1, S2/irregular rhythm, slightly fast rate, no murmur rubs or gallops Lungs: Clear to auscultation bilaterally. Normal effort Abdomen: Soft/nontender/nondistended. No hepatosplenomegaly Extremities: No clubbing/cyanosis. No edema Behavior: Appropriate, cooperative Results & Data Results & Data Vital Signs (Past 12 Hours) Vital Signs Temp Pulse Pulse Resp BP Pulse Ox O2 Del Method 04/19/23 14:58 36.6 C 104 H 20 122/74 92 Room Air 04/19/23 08:21 36.3 C L 93 H 20 108/69 93 Room Air 04/19/23 08:00 Room Air 04/19/23 08:00 99 H PG Care Time/CCT Total # of Minutes Spent Total Time Spent with Patient: Total time spent is greater than 50% in coordination of care (as documented) at patient's floor/unit and/or counseling patient: Coding Level of Care Code 20932 SUB INP/OBS CARE 2/35MIN Diagnoses Hip fracture S72.001A Encounter type: initial encounter Fracture type: closed Laterality: right Atrial fibrillation with rapid ventricular response I48.91 (HFpEF) heart failure with preserved ejection fraction I50.30 Chronic diarrhea K52.9 Hx of pulmonary embolus Z86.711 Acute blood loss anemia D62 Anxiety F41.9 Hypertension I10 Osteoporosis M81.0 (1) Hip fracture Encounter type: initial encounter Fracture type: closed Laterality: right Qualified Code(s): S72.001A - Fracture of unspecified part of neck of right femur, initial encounter for closed fracture
[2023-04-19] MEDS: ESCITALOPRAM OXALATE 10 MG TAB PO SCH (20:04)
[2023-04-19] MEDS: ACETAMINOPHEN 500 MG TAB PO PRN (20:05)
[2023-04-20] MEDS: POTASSIUM CHLORIDE CRTAB 20 MEQ TABCR PO SCH (09:24)
[2023-04-20] MEDS: APIXABAN 5 MG TABLET PO SCH (09:25)
[2023-04-20] MEDS: METOPROLOL SUCC 25MG EXT REL TAB PO SCH (09:25)
[2023-04-20] MEDS: VENLAFAXINE HCL XR 37.5 MG CAPXR PO SCH (09:25)
[2023-04-20] MEDS: DOCUSATE SODIUM 100 MG CAP PO SCH (09:25)
[2023-04-20] MEDS: CHOLECALCIFEROL 25 MCG (1000 UNITS) TAB PO SCH (09:25)
[2023-04-20] MEDS: POLYETHYLENE (MIRALAX) 17 GM PACK PO SCH (09:26)
[2023-04-20] MEDS: FUROSEMIDE 40 MG TAB PO SCH (09:30)
--- NOTE | 2023-04-20 10:13 | Orthopedic Progress Note ---
Date of Service April 20, 2023 Assessment & Plan (1) Hip fracture: Plan: Patient is doing well postop day 8. Dressings were changed. No signs of infection appreciated or fluctuance. Dressings were changed to smaller Tegaderm over the area to avoid any blistering. Advised nursing and continue to monitor this. She is already anticoagulated on Eliquis will continue. Per case management reports that [facility] has a bed available today. She is medically st able from orthopedic standpoint and may be discharged. She has had a outpatient follow-up in our office already scheduled and updated in her discharge summary. Please do not hesitate to reach out to orthopedics if any changes or concerns. Present on Admission?: Yes Admission and Anticipated Discharge Date Admission Date: April 12, 2023 Subjective Patient is a 87-year-old female who is a known patient of Dr. Mekhi blanton. She is postop day #8 status post a right hip ORIF. She was seen bedside this a.m. RN was present during visit. She is alert and oriented pleasant and conversive. She states she has some improvement since she was seen earlier this week. She feels her pain is better controlled rates as a 6/10. She states she is trying to do physical therapy and feels like she is making gains slowly. She denies an y fever, chills, chest pain or or shortness of breath. She denies any calf pain. She offers no concerns at this visit Review of Systems Review of Systems: Please refer to HPI Physical Exam Physical Exam: General: Patient is alert and oriented x 3 answering questions appropriately does not appear to be in any distress Integumentary/musculoskeletal: Attention to the right lower extremity. Skin has resolving ecchymosis and surrounding the distal incision there are blistering. 1 small blister appears to have a small amount of fluid in it negative for any erythema surrounding this area. Dressings are intact the more proximal dressing is soiled this was removed. Incision is well-approximated with kim negative for any active bleeding. There is clear/yellow fluid on dressing. Negative for any fluctuance or induration surrounding both incisions. New dressing was applied to the proximal and distal incision. She does have some erythema in the right groin negative for any drainage. This has improved since seen previously. She is able to tolerate gentle range of motion of the hip. She is able to actively assist with knee flexion. She is able to complete a straight leg raise without assistance. She is able to actively dorsiflex and plantarflex ankle Her sensation is intact over the right lower extremity. Dorsal pedis pulses 1. Results & Data Vital Signs (Past 12 Hours) Vital Signs Temp Pulse Pulse Resp BP Pulse Ox O2 Del Method 04/20/23 08:04 103 H 04/20/23 07:27 36.7 C 88 18 119/74 92 Room Air 04/20/23 03:03 36.5 C 88 16 119/65 91 Room Air 04/20/23 00:00 107 H 04/19/23 23:05 36.6 C 85 16 108/61 95 Room Air (1) Hip fracture Encounter type: initial encounter Fracture type: closed Laterality: right Qualified Code(s): S72.001A - Fracture of unspecified part of neck of right femur, initial encounter for closed fracture
--- NOTE | 2023-04-20 10:16 | Discharge Summary ---
Date of Service April 20, 2023 Admission HPI Per Admitting Provider Sarah Pearson is a pleasant 87yo female with history of AF on Eliquis anticoagulation, PAD, Depression and GERD presenting after a fall at home. Patient was coming out of her closet and was trying to reach for her bed when she lost her balance and fell onto her right hip. She denies head trauma or loss of consciousness. Severe pain, 8/10 at present. No additional complaints at this time Admission Exam Per Admitting Provider General: patient resting comfortably, NAD, non-toxic in appearance, AA&O x 4 Skin: warm, dry, intact, no rashes or lesions HEENT: NC/AT, PERRL, EOMI, anicteric sclera, conjunctiva without injection, external ear normal to inspection and nontender, nares patent, moist mucus membranes, dentition intact, no oropharyngeal lesions, neck supple, trachea midline, no LAD, no thyromegaly, no JVD Heart: +S1/S2, irregularly irregular, tachycardic no m/r/g Lungs: equal air entry bilaterally, no rales/rhonchi/wheezes Abd: +BS, soft, NT/ND, no masses/organomegaly/ascites Ext: warm, 2+ pulses in UE/LE bilaterally, no clubbing/cyanosis or edema Neuro: nonfocal, patient AA&O x 4, speech intact, no facial droop, moving all extremities on command with equal strength 5/5 Principal Diagnosis Right hip fracture Rapid atrial fibrillation Discharge Exam General: Awake, conversant Heart: S1, S2/irregular rhythm, slightly fast rate, no murmur rubs or gallops Lungs: Clear to auscultation bilaterally. Normal effort Abdomen: Soft/nontender/nondistended. No hepatosplenomegaly Extremities: No clubbing/cyanosis. No edema Behavior: Appropriate, cooperative Discharge Data Allergies Allergy/AdvReac Type Severity Reaction Status Date / Time lisinopril Allergy Mild Hives Verified 04/10/23 09:49 nitrofurantoin Allergy Mild Hives Verified 04/10/23 09:49 Penicillins Allergy Mild Hives Verified 04/10/23 09:49 Sulfa (Sulfonamide Allergy Mild Hives Verified 04/10/23 09:49 Antibiotics) latex Allergy Itching Verified 04/10/23 10:57 Consultations 04/12/23 01:00 ED Decision to Admit Stat 04/12/23 04:06 Consult Orthopedic Surgery Routine Procedures Performed Operation Date: 04/12/23 10:40 Actual Procedures p Right Intertrochanteric Nail Femur Fracture(Right) - Khari Cunningham MD Ordered Studies 04/11/23 23:53 CT head/brain wo con Stat 04/12/23 [place] hip RT 2-3V Routine Hospital Course (1) Hip fracture: 87yo female presenting from home after a ground level fall resulting in right hip fracture. Age-related osteoporosis with current pathological fracture, right femur Now s/p ORIF of right hip on 04/12-postop recovery going well On Eliquis for DVT prophylaxis Appreciate orthopedic management Vitamin D level normal at 31 (2) Atrial fibrillation with rapid ventricular response: Permanent atrial fibrillation at least for the last 3 to 4 months With some tachycardia now improving secondary to some acute blood loss anemia and recent hip surgery She was scheduled as an outpatient to have a cardioversion performed on 04/13/23. This was canceled and will need to be rescheduled in 3 to 4 weeks after she is back on Eliquis consistently -Resumed Eliquis on 04/13 Rate was noted to be creeping up Gave her 125 mg of metoprolol which is a higher dose this morning Continue 125 mg of metoprolol, rate relatively controlled on this dose (3) (HFpEF) heart failure with preserved ejection fraction: Well compensated. Was admitted in January 2023 for acute on chronic HFpEF secondary to rapid atrial fibrillation Last echo 03/01/23 with EF of 50-55%, no regional WMA She is euvolemic. She has chronic venous stasis changes of the legs bilaterally with trace pitting edema -Continue Metoprolol for rate control -Monitor for volume overload -Continue home Lasix (4) Chronic diarrhea: Chronic, takes Imodium as needed (5) Hx of pulmonary embolus: Continue Eliquis (6) Acute blood loss anemia: As noted above, secondary to hip fracture No need for transfusion at this point (7) Anxiety: Continue home escitalopram and venlafaxine (8) Hypertension: Blood pressures are controlled She is on metoprolol mostly for rate control of her atrial fibrillation Continue Lasix (9) Osteoporosis: Vitamin D levels are normal With osteoporotic related hip fracture Follow-up as an outpatient Plan Discharge today to rehab Total Time Total Time Spent Total Time Spent (In Minutes): 35 Discharge Plan Discharge Items Patient Disposition: Transfer [facility] Reason For Visit: RIGHT HIP FRACTURE Discharge Diagnosis: Right hip fracture Rapid atrial fibrillation Activity: Resume your previous activity Non-emergency contact: Primary Care Provider Call non-emergency contact if: you have any medication questions and your symptoms worsen Follow-up/Referrals: Kavin Witt DO [Primary Care Provider] - Khari Cunningham MD [Physician] - 04/27/23 11:15 am Diet: Heart Healthy Addtl Attending Provider Instructions: Advised to follow-up with PCP in 1 week Advised to follow-up with cardiology in 2 weeks. Please note that your cardioversion will need to be rescheduled Addtl Rejoiner Provider Instructions: -Weightbearing as tolerated on the right leg with walker -follow up in our office in 2 weeks for staple removal , if need to change appointment please call [phone] -Keep dressing clean and dry may -Continue with ice to the right hip as needed -If any questions, concerns or change in symptoms please call the office at [phone] Pending Studies at Discharge: No Stand-Alone Forms: My [facility] Skilled Items Patient informed of condition?: Yes DNR: Yes Discharge Level of Care: Skilled Communicable Disease: No Discharge Prognosis: Stable Lines: None Urinary Catheter: No Medications and DC Order Prescriptions: New metoprolol succinate 25 mg Tablet Extended Release 24 Hr 125 mg PO QAM 30 Days Qty: 150 0RF cephalexin 500 mg capsule 500 mg PO BID 7 Days Qty: 14 0RF Continued apixaban 5 mg tablet 5 mg PO BID Qty: 180 3RF acetaminophen [Tylenol Extra Strength] 500 mg tablet 1,000 mg PO TID PRN (Reason: PAIN/FEVER) Biofreeze (menthol) 5 % gel 1 ea topical DAILY PRN (Reason: Pain) Rx Instructions: 1 application to both knees every morning silver sulfadiazine 1 % cream 1 applic topical DAILY Rx Instructions: apply a 1.5 mm thickness potassium chloride 20 mEq tablet extended release 20 meq PO QAM Qty: 90 3RF cholecalciferol (vitamin D3) 25 mcg (1,000 unit) capsule 25 mcg PO QAM triamcinolone acetonide 0.1 % cream 1 applic TOPICAL BID PRN (Reason: flare ups) Rx Instructions: APPLIES TO RASH ON ANKLES venlafaxine [Effexor XR] 37.5 mg capsule,extended release 24hr 37.5 mg PO QAM escitalopram oxalate [Lexapro] 5 mg tablet 5 mg PO QPM furosemide [Lasix] 40 mg tablet 40 mg PO QAM tramadol 50 mg tablet 50 mg PO QAM PRN (Reason: Pain) Discontinued metoprolol succinate 50 mg tablet extended release 24 hr 100 mg PO QAM Discharge Orders: Discharge Order (Routine); Ordered 04/20/23 Ordered By: Veronica Dickerson Admission Data Admit Date/Time: 04/12/23 01:55 Attending Provider: Veronica Dickerson Admit Provider: Salima White Primary Care Provider: Kavin Witt Other Providers: [facility]; Delano Moran [facility]; [place]; Salima White; Kavin Espinoza Other Interventions: Discharge Summary Assessment (RN) Last Done: 04/20/23 10:22 Coding Level of Care Code 94572 INP/OBS DISCH >30 MIN Diagnoses Hip fracture S72.001A Encounter type: initial encounter Fracture type: closed Laterality: right Atrial fibrillation with rapid ventricular response I48.91 (HFpEF) heart failure with preserved ejection fraction I50.30 Chronic diarrhea K52.9 Hx of pulmonary embolus Z86.711 Acute blood loss anemia D62 Anxiety F41.9 Hypertension I10 Osteoporosis M81.0
[2023-04-20] MEDS: SILVER SULFADIAZINE 1% CR 50 GM JAR TOP SCH (10:42)
== END 2023-04-20 12:43 | DRG 481 ==
LOC: ED 23:33 → SUATTDRO 04-12 01:55 → 3W 04-12 01:55 → 2S 04-12 09:35 → 2N 04-15 12:30
DX: I50.32 Chronic diastolic (congestive) heart failure; Y92.122 Bedroom in nursing home as the place of occurrence of the external cause; K52.9 Noninfective gastroenteritis and colitis, unspecified; Y99.8 Other external cause status; Z88.1 Allergy status to other antibiotic agents; M80.051A Age-related osteoporosis with current pathological fracture, right femur, initial encounter for fracture; Z79.01 Long term (current) use of anticoagulants; H81.10 Benign paroxysmal vertigo, unspecified ear; F41.9 Anxiety disorder, unspecified; F32.A Depression, unspecified; W18.39XA Other fall on same level, initial encounter; Z79.899 Other long term (current) drug therapy; Z86.711 Personal history of pulmonary embolism; I87.8 Other specified disorders of veins; Z88.8 Allergy status to other drugs, medicaments and biological substances; I11.0 Hypertensive heart disease with heart failure; Z91.040 Latex allergy status; I48.21 Permanent atrial fibrillation; D62 Acute posthemorrhagic anemia; I73.9 Peripheral vascular disease, unspecified; Z88.0 Allergy status to penicillin; Z88.2 Allergy status to sulfonamides